=== PATIENT | male | born 1955 | race Caucasian/White ===

== ENCOUNTER 2022-01-11 17:54 | Inpatient (IN) ==
[2022-01-11] MEDS ORDERED: MoRPHine SULFATE 4 MG/ML 1 ML CARP\\VIAL IV STA (18:40)
[2022-01-11] MEDS ORDERED: SODIUM CHLORIDE 0.9% 1000ML 1,000 ML IV ONE (18:40)
[2022-01-11] MEDS ORDERED: dexAMETHasone**PF** 10 MG/ML VIAL IV ONE (18:40)
[2022-01-11] MEDS ORDERED: MoRPHine SULFATE 4 MG/ML 1 ML CARP\\VIAL IV PRN ×2 (18:40→23:27)
[2022-01-11] MEDS ORDERED: ONDANSETRON INJ 2 MG/ML 2 ML VIAL IV STA (18:40)
--- NOTE | 2022-01-11 18:50 | Emergency Department Note ---
Impression & Plan Spinal stenosis, Sciatica of right side, DDD (degenerative disc disease), lumbar ED Provider Note NAME: ZENA FRANCOIS AGE: 66 SEX: M : 1955 ARRIVES VIA: Walk-In INFORMANT: Patient, ED PROVIDER(S): Dhruv Dai DO CHIEF COMPLAINT: Back pain HPI: The patient is a 66-year-old male who presented to the emergency department for an evaluation of back pain. The patient describes back pain which goes to his right leg. He had a similar episode 8 years ago. It was treated as sciatica. He did get an injection into the joint space and had good relief of his symptoms until approximately 1 or 2 years ago. He states the pain has been intermittent. He started getting worsening pain and he tried to contact the physician who gave him the injection in the past. He was unable to get an injection so he did come to the emergency department. He was treated approximately 1 week ago. He had an MRI which did show some abnormalities which could be worrisome for a surgical issue. He was plugged in with Dr. Cortez but has been unable to get an appointment. His significant other's been calling Dr. Cortez's office without any luck. The patient has had no nausea or vomiting. The patient's had no fever. He states his legs are "rubber". He denies having any saddle anesthesia. He said no constipation or urinary retention symptoms. He states symptoms are severe and worsened with any ambulation. He also has no ticed a rash over his abdominal wall. He states is itchy. He states he has had generalized weakness. ROS: See above HPI for pertinent positives & negatives. A total of 10 systems reviewed and were otherwise negative. PAST MEDICAL HISTORY: See Below PAST SURGICAL HISTORY: See Below FAMILY HISTORY: See Below SOCIAL HISTORY: See Below HOME MEDICATIONS: See Below ALLERGIES: See Below VITALS: See Below PHYSICAL EXAMINATION: GENERAL: Patient is awake alert in no acute distress patient is resting comfortably and showing no signs of anxiety EYES: The conjunctivae are clear. The pupils are round and reactive. EARS, NOSE, MOUTH AND THROAT: The nose is without any evidence of any deformity. Mucous membranes are moist. Tongue is midline. NECK: The neck is nontender and supple. RESPIRATORY: Normal respiratory effort is noted there is no evidence of wheezing rhonchi or rales CARDIOVASCULAR: Regular rate and rhythm noted there no murmurs rubs or gallops normal S1 normal S2. GASTROINTESTINAL: The abdomen is soft. Abdomen is nontender. BACK: There is no midline tenderness to palpation. Range of motion does appear limited secondary to pain but is intact. MUSCULOSKELETAL/EXTREMITIES: There is no evidence of gross deformity full range of motion is noted in the hips and shoulders. SKIN: There is a maculopapular rash noted over the abdominal wall. There was no pedal edema. NEUROLOGIC: Patient is awake alert and oriented x3. Achilles tendon reflexes were 1+ bilaterally and symmetric. Great toe raise was symmetric. Patellar tendon reflexes are absent bilaterally. MEDICAL DECISION MAKING: The patient is a 66-year-old male who presented to the emergency department for an evaluation of back pain. The patient had significant pain radiating to his right leg but recently started having pain down his left leg as well. He had an MRI a week ago which did show significant disease and was scheduled to follow-up with orthopedic spine. He was unable to set up an appointment with them so he presented to the emergency department this evening for further evaluation. I discussed patient's laboratory and previous radiographic studies with him. Because of his degree of pain I discussed his case with the on-call [facility] hospitalist. They have agreed to evaluate the patient in the emergency department for further management and disposition. Likely the patient will require orthopedic spine referral in the morning. He may require surgical intervention given his findings on recent MRI. The patient was treated with pain medication as well as Decadron in the emergency department. Triage Nursing notes reviewed. Prior medical records reviewed Vital Signs: reviewed and remarkable for no significant abnormalities Differential diagnosis: Musculoskeletal, disc herniation, fracture, metastatic disease, cord compr ession, discitis, sciatica, cauda equina, infection, aortic disease, renal colic, gastrointestinal, as well as other pathologies. ER treatment provided: See below Diagnostics interpreted by me: ECG: none Cardiac Monitoring: An order was placed for continuous cardiac monitoring. The monitor shows a rate of 90 bpm with sinus rhythm. Laboratory studies: As stated above and show below. Imaging studies: See below Consultation(s): I discussed this case with Dr Orozco Past Med/Surg History Medical History ASCVD (arteriosclerotic cardiovascular disease) CKD (chronic kidney disease) stage 3, GFR 30-59 ml/min COPD (chronic obstructive pulmonary disease) Diabetes Hyperlipidemia Hypertension Surgical History History of hernia surgery Hx laparoscopic cholecystectomy Family History Other Family history non-contributory Social History Smoking Status: Current every day smoker Tobacco Type: E-cigarettes / Vaping Cigarettes Per Day: vapes; Do You Dip or Chew Tobacco: No; Hx Alcohol Use: No Hx Substance Use: No Preferred Language: Czech Communication Ability: Effective Visual Impairment: No Limitations Food Handler Required: No Beliefs That Will Affect Care: None marital status: Current Living Situation: Spouse How many Children do You have: 1 Other Information That Helps Us Care for You: No Feels Safe at Home: Yes Safety Concerns: Feels Safe At This Time Assistive Devices: None Allergies Allergies Allergy/AdvReac Type Severity Reaction Status Date / Time amoxicillin [From Augmentin] Allergy Unknown pruritic Verified 01/11/22 18:43 rash clavulanic acid Allergy Unknown pruritic Verified 01/11/22 18:43 [From Augmentin] rash Home Meds Home Medications Medication Instructions Recorded Confirmed amlodipine 5 mg tablet (Norvasc) 5 mg PO QAM 07/14/18 01/11/22 atorvastatin 40 mg tablet 40 mg PO QAM 07/14/18 01/11/22 aspirin 81 mg tablet,delayed 81 mg PO QAM 01/03/22 01/11/22 release gabapentin 300 mg capsule 600 mg PO QAM 01/03/22 01/11/22 insulin human U-100 NPH-regulr See Rx Instructions .ROUTE .COMPLEX 01/03/22 01/11/22 70-30 mix 100 unit/mL subcutaneous susp (Novolin 70/30 U-100 Insulin) lisinopril 2.5 mg tablet 2.5 mg PO DAILY 01/03/22 01/11/22 metformin 1,000 mg tablet 1,000 mg PO BIDM 01/03/22 01/11/22 Previous Rx's Medication Instructions Recorded oxycodone-acetaminophen 5 mg-325 1 tab PO Q6H PRN #14 tab 01/04/22 mg tablet (Percocet) Results & Data (ED) Vital Signs Vital Signs - 24 hr 01/11/22 18:01 01/11/22 19:09 01/11/22 22:06 Temperature 36.6 C Temperature Source Temporal Artery Scan Pulse Rate 107 H Pulse Rate [Right] 98 H Respiratory Rate 18 18 Respiratory Effort / Characteristics Non-Labored Respiratory Depth Normal Respiratory Pattern Regular Blood Pressure 149/99 H Blood Pressure [Right Arm] 135/78 Blood Pressure Mean 115 Blood Pressure Mean [Right Arm] 97 Blood Pressure Position Sitting Pulse Oximetry 96 97 98 Oxygen Delivery Method Room Air Room Air Sepsis Recent Fever Within 48 Hours No Sepsis New/Unexplained Change in Mental Status No Sepsis Action Taken by Nursing No Action Required Home Medications Current Medication List: was personally reviewed by me Laboratory Data Attestation: I reviewed the patient's lab results. Result diagrams: 01/12/22 06:25 01/12/22 06:25 Lab Results 01/11/22 01/11/22 01/11/22 Range/Units 19:06 19:06 19:06 WBC 9.05 (4.8-10.8) K/uL RBC 4.19 L (4.7-6.1) M/uL Hgb 12.9 L (14.0-18.0) g/dL Hct 37.9 L (42-52) % MCV 90.5 (80-100) fL MCH 30.8 (25-34) pg MCHC 34.0 (32-36) g/dL RDW Std Deviation 45.8 (36.4-46.3) fL RDW Coeff of Erica 13.9 (11.5-14.5) % Plt Count 241 (130-400) K/uL MPV 9.3 (7.4-10.4) fL Immature Gran % (Auto) 0.4 % Neut % (Auto) 73.2 % Lymph % (Auto) 18.7 % [place] % (Auto) 6.9 % Eos % (Auto) 0.6 % Baso % (Auto) 0.2 % Neut # (Auto) 6.63 H (1.4-6.5) K/uL Lymph # (Auto) 1.69 (1.2-3.4) K/uL [place] # (Auto) 0.62 H (0.11-0.59) K/uL Eos # (Auto) 0.05 (0-0.5) K/uL Baso # (Auto) 0.02 (0-0.2) K/uL Immature Gran # (Auto) 0.04 H (0.00-0.02) K/uL Sodium 138 (136-145) mmol/L Potassium 4.4 (3.5-5.1) mmol/L Chloride 105 (98-107) mmol/L Carbon Dioxide 26 (21-32) mmol/L Anion Gap 7 (3-11) BUN 32 H (6-23) mg/dl Creatinine 1.00 (0.6-1.4) mg/dl Est Cr Clr Drug Dosing Not Reportable Est GFR ( Amer) 89.2 ml/min Est GFR (Non-Af Amer) 77.0 ml/min BUN/Creatinine Ratio 32.0 H (10-20) Glucose 86 (70-99(Fasting)) mg/dl Calcium 9.8 (8.5-10.1) mg/dl Total Bilirubin 0.6 (0.2-1.0) mg/dl AST 201 H (13-39) U/L ALT 259 H (7-52) U/L Alkaline Phosphatase 68 (34-104) U/L Total Protein 6.9 (6.0-8.3) gm/dl Albumin 4.0 (3.4-5.0) gm/dl Globulin 2.9 (2.5-4.0) gm/dl Albumin/Globulin Ratio 1.4 (0.9-2) Lipase 34 (11-82) U/L Urine Color Urine Appearance (Clear) Urine pH (4.5-7.5) Ur Specific [place] (1.000-1.030) Urine Protein (Negative) Urine Glucose (UA) (Negative) Urine Ketones (Negative) Urine Blood (Negative) Urine Nitrite (Negative) Urine Bilirubin (Negative) Urine Urobilinogen (Negative) Ur Leukocyte Esterase (Negative) Urine WBC (Auto) (0-5) /hpf Urine RBC (Auto) (0-4) /hpf U Hyaline Cast (Auto) (0-5) /lpf U Epithel Cells (Auto) (0-5) /lpf Urine Bacteria (Auto) (Negative) SARS-CoV-2, RNA, NAAT NEGATIVE (NEGATIVE) 01/11/22 Range/Units 22:02 WBC (4.8-10.8) K/uL RBC (4.7-6.1) M/uL Hgb (14.0-18.0) g/dL Hct (42-52) % MCV (80-100) fL MCH (25-34) pg MCHC (32-36) g/dL RDW Std Deviation (36.4-46.3) fL RDW Coeff of Erica (11.5-14.5) % Plt Count (130-400) K/uL MPV (7.4-10.4) fL Immature Gran % (Auto) % Neut % (Auto) % Lymph % (Auto) % [place] % (Auto) % Eos % (Auto) % Baso % (Auto) % Neut # (Auto) (1.4-6.5) K/uL Lymph # (Auto) (1.2-3.4) K/uL [place] # (Auto) (0.11-0.59) K/uL Eos # (Auto) (0-0.5) K/uL Baso # (Auto) (0-0.2) K/uL Immature Gran # (Auto) (0.00-0.02) K/uL Sodium (136-145) mmol/L Potassium (3.5-5.1) mmol/L Chloride (98-107) mmol/L Carbon Dioxide (21-32) mmol/L Anion Gap (3-11) BUN (6-23) mg/dl Creatinine (0.6-1.4) mg/dl Est Cr Clr Drug Dosing Est GFR ( Amer) ml/min Est GFR (Non-Af Amer) ml/min BUN/Creatinine Ratio (10-20) Glucose (70-99(Fasting)) mg/dl Calcium (8.5-10.1) mg/dl Total Bilirubin (0.2-1.0) mg/dl AST (13-39) U/L ALT (7-52) U/L Alkaline Phosphatase (34-104) U/L Total Protein (6.0-8.3) gm/dl Albumin (3.4-5.0) gm/dl Globulin (2.5-4.0) gm/dl Albumin/Globulin Ratio (0.9-2) Lipase (11-82) U/L Urine Color Yellow Urine Appearance Clear (Clear) Urine pH 5.5 (4.5-7.5) Ur Specific [place] 1.016 (1.000-1.030) Urine Protein 1+ H (Negative) Urine Glucose (UA) Negative (Negative) Urine Ketones Negative (Negative) Urine Blood 3+ H (Negative) Urine Nitrite Negative (Negative) Urine Bilirubin Negative (Negative) Urine Urobilinogen Negative (Negative) Ur Leukocyte Esterase Negative (Negative) Urine WBC (Auto) 1-5 (0-5) /hpf Urine RBC (Auto) 0-4 (0-4) /hpf U Hyaline Cast (Auto) 1-5 (0-5) /lpf U Epithel Cells (Auto) 5-10 H (0-5) /lpf Urine Bacteria (Auto) Negative (Negative) SARS-CoV-2, RNA, NAAT (NEGATIVE) Administered Medications Amlodipine Besylate (Amlodipine Besylate 5 Mg Tab) 5 mg PO [facility] Stop: 02/11/22 08:59 Last Admin: 01/12/22 07:47 Dose: 5 mg Documented by: [id number] Aspirin (Aspirin 81 Mg Ectab) 81 mg PO [facility] Stop: 02/11/22 08:59 Last Admin: 01/12/22 07:46 Dose: Not Given Documented by: [id number] Atorvastatin Calcium (Atorvastatin 40 Mg Tab) 40 mg PO [facility] Stop: 02/11/22 08:59 Last Admin: 01/12/22 07:48 Dose: 40 mg Documented by: [id number] Gabapentin (Gabapentin 300 Mg Cap) 600 mg PO [facility] Stop: 02/11/22 08:59 Last Admin: 01/12/22 07:49 Dose: Not Given Documented by: [id number] Insulin Aspart (Insulin Aspart Per Unit) 0 units SC ACHS [facility] Stop: 02/11/22 11:29 Last Admin: 01/12/22 13:10 Dose: 4 units Documented by: [id number] Cosigned by: [id number] Insulin Glargine (Insulin Glargine Solostar 100 Units/Ml 3 Ml Pen) 5 units SC BID [facility] Stop: 02/10/22 23:26 Last Admin: 01/12/22 07:48 Dose: 5 units Documented by: [id number] Cosigned by: [id number] Admin: 01/12/22 01:07 Dose: 5 units Documented by: [id number] Cosigned by: [id number] Lisinopril (Lisinopril 2.5 Mg Tab) 2.5 mg PO DAILY [facility] Stop: 02/11/22 08:59 Last Admin: 01/12/22 07:48 Dose: 2.5 mg Documented by: [id number] Discontinued Medications Dexamethasone Sodium Phosphate (DexamethasonePf 10 Mg/Ml Vial) 10 mg IV NOW ONE Stop: 01/11/22 18:41 Last Admin: 01/11/22 19:08 Dose: 10 mg Documented by: [id number] Diphenhydramine HCl (Diphenhydramine 50 Mg/Ml Vial) 25 mg IV NOW STA Stop: 01/11/22 22:20 Last Admin: 01/11/22 22:38 Dose: 25 mg Documented by: [id number] Sodium Chloride (Nss 1000ml) 1,000 mls @ 999 mls/hr IV .Q1H1M ONE Stop: 01/11/22 19:40 Last Infusion: 01/11/22 20:10 Dose: 0 mls/hr Documented by: [id number] Admin: 01/11/22 19:09 Dose: 999 mls/hr Documented by: [id number] Famotidine (Pepcid 20mg Iv Push) 20 mg in 5 mls @ 2.5 mls/min IV NOW STA Stop: 01/11/22 22:20 Last Admin: 01/11/22 22:38 Dose: 2.5 mls/min Documented by: [id number] Sodium Chloride (1/2 Nss) 1,000 mls @ 100 mls/hr IV .Q10H [facility] Stop: 01/12/22 09:26 Last Infusion: 01/12/22 11:01 Dose: 0 mls/hr Documented by: [id number] Admin: 01/12/22 00:56 Dose: 100 mls/hr Documented by: [id number] Insulin Aspart (Insulin Aspart Per Unit) 5 units SC NOW STA Stop: 01/12/22 02:58 Last Admin: 01/12/22 03:53 Dose: 5 units Documented by: [id number] Cosigned by: [id number] Insulin Aspart (Insulin Aspart Per Unit) 0 units SC Q6 [facility] Stop: 02/11/22 05:59 Last Admin: 01/12/22 06:18 Dose: 3 units Documented by: [id number] Cosigned by: [id number] Morphine Sulfate (Morphine Sulfate 4 Mg/Ml 1 Ml Carp\\Vial) 4 mg IV NOW STA Stop: 01/11/22 18:41 Last Admin: 01/11/22 19:09 Dose: 4 mg Documented by: [id number] Ondansetron HCl (Ondansetron Inj 2 Mg/Ml 2 Ml Vial) 4 mg IV NOW STA Stop: 01/11/22 18:41 Last Admin: 01/11/22 19:09 Dose: 4 mg Documented by: [id number] Discharge Plan Visit Data Chief Complaint: Back Injury/Pain Stated Complaint: BACK PAIN, RASH EVERYWHERE ED Provider: Dhruv Dai Discharge Problem: Spinal stenosis, Sciatica of right side, DDD (degenerative disc disease), lumbar Patient Disposition: Admitted As Inpatient Discharge Instructions Interventions: ED Discharge Assessment Last Done: 01/11/22 23:07 Discharge Problem: Spinal stenosis Qualifiers: Spinal region: unspecified Qualified Code(s): M48.00 - Spinal stenosis, site unspecified
[2022-01-11 19:19] LABS: Hematocrit (blood only) 37.9 % (42-52); Hemoglobin 12.9 g/dL (14.0-18.0); Mean Corpuscular Hemoglobin 30.8 pg (25-34); Mean Corpuscular Volume 90.5 fL (80-100); Mean Platelet Volume 9.3 fL (7.4-10.4); Platelet Count 241 K/uL (130-400); RDW Coefficient of Variation 13.9 % (11.5-14.5); RDW Standard Deviation 45.8 fL (36.4-46.3); Red Blood Count 4.19 M/uL (4.7-6.1); White Blood Count 9.05 K/uL (4.8-10.8)
[2022-01-11 19:39] LABS: Basophils # (auto) 0.02 K/uL (0-0.2); Basophils % (auto) 0.2 %; Eosinophils # (auto) 0.05 K/uL (0-0.5); Eosinophils % (auto) 0.6 %; Immature Granulocytes # (auto) 0.04 K/uL (0.00-0.02); Immature Granulocytes % (auto) 0.4 %; Lymphocytes # (auto) 1.69 K/uL (1.2-3.4); Lymphocytes % (auto) 18.7 %; Monocytes # (auto) 0.62 K/uL (0.11-0.59); Monocytes % (auto) 6.9 %; Neutrophils # (auto) 6.63 K/uL (1.4-6.5); Neutrophils % (auto) 73.2 %
[2022-01-11 20:09] LABS: Alanine Aminotransferase 259 U/L (7-52); Albumin Globulin Ratio 1.4 (0.9-2); Alkaline Phosphatase 68 U/L (34-104); Anion Gap 7 (3-11); Aspartate Aminotransferase 201 U/L (13-39); Bilirubin,Total 0.6 mg/dl (0.2-1.0); Blood Urea Nitrogen 32 mg/dl (6-23); Calcium 9.8 mg/dl (8.5-10.1); Carbon Dioxide 26 mmol/L (21-32); Chloride 105 mmol/L (98-107); Est GFR (African American) 89.2 ml/min; Globulin 2.9 gm/dl (2.5-4.0); Glucose 86 mg/dl (70-99(Fasting)); Lipase 34 U/L (11-82); Potassium 4.4 mmol/L (3.5-5.1); Sodium 138 mmol/L (136-145); Total Protein 6.9 gm/dl (6.0-8.3)
[2022-01-11] MEDS ORDERED: diphenhydrAMINE 50 MG/ML VIAL IV STA (22:19)
[2022-01-11] MEDS ORDERED: FAMOTIDINE 20MG IV PUSH 20 MG/5 ML SYR IV STA (22:19)
[2022-01-11 22:25] LABS: Appearance Urine Clear (Clear); Bacteria Urine Automated Negative (Negative); Bilirubin Urine Negative (Negative); Blood Urine 3+ (Negative); Color Urine Yellow; Glucose Urine UA Negative (Negative); Ketones Urine Negative (Negative); Leukocyte Esterase Urine Negative (Negative); Nitrite Urine Negative (Negative); Protein Urine 1+ (Negative); RBC Urine Automated 0-4 /hpf (0-4); Specific Gravity Urine 1.016 (1.000-1.030); Urobilinogen Urine Negative (Negative); pH Urine 5.5 (4.5-7.5)
[2022-01-11] MEDS ORDERED: SODIUM CHLORIDE 0.45 % 1,000 ML IV SCH (23:27)
[2022-01-11] MEDS ORDERED: ACETAMINOPHEN 325 MG TAB PO PRN (23:27)
[2022-01-11] MEDS ORDERED: ONDANSETRON INJ 2 MG/ML 2 ML VIAL IV PRN (23:27)
[2022-01-11] MEDS ORDERED: POLYETHYLENE (MIRALAX) 17 GM PACK PO PRN (23:27)
--- NOTE | 2022-01-11 23:57 | History and Physical Report ---
DATE OF ADMISSION: 01/11/2022. CHIEF COMPLAINT: Severe back pain. HISTORY OF PRESENT ILLNESS: A 66-year-old male with past medical history significant for type 2 diabetes, hyperlipidemia, pancreatic divisum, chronic rhinitis, abdominal aortic aneurysm, hypertension, diverticulosis of colon, chronic kidney disease stage III, noise induced hearing loss, tobacco use disorder, who presents with severe back pain. Back pain is going on for a long time, but lately it has become worse. He had a steroid shot with pain management on 12/27/2021, but it is not helping. Pain radiating to right leg. In the ER, he had a lumbar spine MRI on 01/04/2022, which showed moderate central canal stenosis with moderate bilateral neural foraminal narrowing at L4- L5 and right foraminal and right lateral disk osteophyte complex at L5-S1 with abutment and displacement of the right extraforaminal L5 nerve root and also infrarenal abdominal aortic aneurysm measuring 4.3 cm. The patient's pain is getting worse and he is saying he is not able to ambulate, he has to crawl to climb steps, that is why he came back here.Was trying to reach back surgery, but could not get an appointment yet. Denies any headache, no dizziness, no blurred visions, no earache, no runny nose, no sore throat, no cough, no fever, no chills, no chest pain, no shortness of breath. No nausea, no vomiting, no abdominal pain. Normal bowel and bladder movements. Currently, resting comfortably, hemodynamically stable.Today he also developed diffuse macular rash involving the trunk and lower extremities, somewhat mild in the lower extremities, itching. He thinks he had some bug bites, but not sure which and he denies tick bites. He says no recent new medications. He states he recently took Percocet, but only took few doses, but the rash started today. ALLERGIES: AUGMENTIN. PAST MEDICAL HISTORY: As mentioned above. PAST SURGICAL HISTORY: Colonoscopy, EGD with endoscopic ultrasound, injection of the lumbar spine, injection of the eye drug, laparoscopic cholecystectomy. MEDICATIONS: The patient is on amlodipine 5 mg p.o. a.m., aspirin 81 mg p.o. a.m., atorvastatin 40 mg p.o. a.m., gabapentin 600 mg p.o. a.m., Novolin 70/30 18 units before breakfast and 15 units before supper, lisinopril 2.5 mg p.o. daily, metformin 1000 mg p.o. b.i.d., Percocet 1 tablet p.o. q. 4-6 hours p.r.n. FAMILY HISTORY: Significant for father has bone cancer, diabetes, heart disorder, hypertension, stroke; mother has liver cancer, diabetes, heart disorder, hypertension; sister has thyroid disorder. SOCIAL HISTORY: , former smoker, who quit in 2012, smoked 1 pack a day for 32 years. No alcohol use. No drug use. REVIEW OF SYSTEMS: As per HPI. Rest of the review of systems is negative. PHYSICAL EXAMINATION: GENERAL: The patient is of moderate build, not in acute distress. VITAL SIGNS: Temperature 36.6, pulse 98, respiratory rate 18, blood pressure 135/78, oxygen 98% on room air. HEENT: Pupils equal, round, and reactive to light. Oral mucosa moist. NECK: No JVD, no neck masses. CARDIOVASCULAR: S1 and S2 heard. Regular rate and rhythm. No murmur, no gallop. RESPIRATORY SYSTEM: Normal AP diameter. No accessory muscle use. No wheezing, no crackles. ABDOMEN: Soft. Bowel sounds are present, nontender, no distention. CENTRAL NERVOUS SYSTEM: Cranial nerves II-XII grossly intact, nonfocal. EXTREMITIES: No edema, no erythema. MUSCULOSKELETAL: Bilateral straight leg test negative. SKIN: Diffuse macular rash in trunk and lower extremity, worse in the trunk region. LABORATORY DATA: WBC 9, hemoglobin 12.9, hematocrit 37.9, platelets 241. Sodium 138, potassium 4.4, chloride 105, bicarbonate 26, BUN 32, creatinine 1, serum glucose 86, calcium 9.8, total bilirubin 0.6, AST 201, ALT 259, alkaline phosphatase 68, lipase 34. SARS-CoV-2 RNA negative. ASSESSMENT AND PLAN: This is a 66-year-old male who presents with ongoing severe back pain and ambulatory dysfunction. 1. Severe back pain and ambulatory dysfunction: MRI scan as mentioned in the HPI was done on 01/04/2022. Pain control with Dilaudid p.r.n., IV fluids, and consult orthopedics in the a.m. 2. Diffuse macular rash: Etiology unclear. The patient already received Decadron in the ER. Will give IV Benadryl and IV Pepcid and monitor. May be we need to continue the Benadryl and monitor.If not improving derm consult. Willl check lyme screen. 3. History of diabetes: Received Decadron.. Will monitor the blood sugars, follow HbA1c levels. Holding the Novolin 70/30. Placing on Lantus 5 units b.i.d., insulin sliding scale. Currently n.p.o. Also holding metformin. 4. Hypertension: Continue his lisinopril and amlodipine. Will monitor the blood pressure. 5. History of hyperlipidemia: Continue statin. 6. Abdominal aortic aneurysm 4.3 cm: Needs followup. 7. Chronic kidney disease stage III: Presently with creatinine of 1. Will follow the labs. 8. Elevated AST, transaminitis: Will follow the repeat labs. 9. Deep venous thrombosis prophylaxis: Sequential compression devices for now. DISPOSITION: Admit to medical floor. Expect to discharge home and follow with family doctor. Job ID: [id number] MARIYA
[2022-01-12] MEDS: INSULIN GLARGINE SOLOSTAR 100 UNITS/ML 3 ML PEN SC SCH ×3 (01:07→21:02)
[2022-01-12] MEDS ORDERED: INSULIN ASPART PER UNIT SC STA (02:57)
[2022-01-12] MEDS ORDERED: Nursing to Pharmacy Communication SCH ×2 (04:30→11:15)
[2022-01-12] MEDS ORDERED: INSULIN ASPART PER UNIT SC SCH ×2 (06:00→07:30)
[2022-01-12 06:55] LABS: Basophils # (auto) 0.02 K/uL (0-0.2); Basophils % (auto) 0.2 %; Eosinophils # (auto) 0.01 K/uL (0-0.5); Eosinophils % (auto) 0.1 %; Hematocrit (blood only) 37.8 % (42-52); Hemoglobin 12.8 g/dL (14.0-18.0); Immature Granulocytes # (auto) 0.04 K/uL (0.00-0.02); Immature Granulocytes % (auto) 0.4 %; Lymphocytes # (auto) 1.28 K/uL (1.2-3.4); Mean Corpuscular Hemoglobin 29.8 pg (25-34); Mean Corpuscular Hgb Conc 33.9 g/dL (32-36); Mean Corpuscular Volume 88.1 fL (80-100); Mean Platelet Volume 9.2 fL (7.4-10.4); Monocytes # (auto) 0.48 K/uL (0.11-0.59); Monocytes % (auto) 4.9 %; Neutrophils # (auto) 8.01 K/uL (1.4-6.5); Neutrophils % (auto) 81.4 %; Platelet Count 248 K/uL (130-400); RDW Coefficient of Variation 13.8 % (11.5-14.5); RDW Standard Deviation 44.7 fL (36.4-46.3); Red Blood Count 4.29 M/uL (4.7-6.1); White Blood Count 9.84 K/uL (4.8-10.8)
[2022-01-12 07:23] LABS: Albumin Level 3.8 gm/dl (3.4-5.0); BUN Creatinine Ratio 32.6 (10-20); Bilirubin,Total 0.6 mg/dl (0.2-1.0); Calcium 9.2 mg/dl (8.5-10.1); Creatinine Clr Calc Pharmacy 77.1 ml/min; Est GFR (African American) 94.9 ml/min; Est GFR (Non-African American) 81.9 ml/min; Magnesium 1.8 mg/dl (1.7-2.4); Potassium 4.4 mmol/L (3.5-5.1); Total Protein 6.6 gm/dl (6.0-8.3)
[2022-01-12 07:40] LABS: Estimated Average Glucose 171 mg/dl; Hemoglobin A1C 7.6 % (4.5-5.6)
[2022-01-12] MEDS: ASPIRIN 81 MG ECTAB PO SCH (07:46)
[2022-01-12] MEDS: amLODIPine BESYLATE 5 MG TAB PO SCH (07:47)
[2022-01-12] MEDS: ATORVASTATIN 40 MG TAB PO SCH (07:48)
[2022-01-12] MEDS: lisinopril 2.5 MG TAB PO SCH (07:48)
[2022-01-12] MEDS: GABAPENTIN 300 MG CAP PO SCH (07:49)
[2022-01-12 07:50] LABS: Lyme Ab IgG w/WB Rflx Positive (Negative)
[2022-01-12 07:51] LABS: Lyme Ab IgM w/WB Rflx Equivocal (Negative)
--- NOTE | 2022-01-12 09:53 | XRay Report ---
STANDING LATERAL RADIOGRAPHS OF THE LUMBAR SPINE IN FLEXION AND EXTENSION CLINICAL HISTORY: back pain , standing films COMPARISON STUDY: Lumbar spine CT January 03, 2022. Lumbar spine MRI January 04, 2022. FINDINGS: Infrarenal abdominal aortic aneurysm is better depicted on CT of January 03, 2022. Alignment of the lumbar spine is anatomic during flexion and extension. Vertebral body heights are maintained. Th ere is no fracture. There is no suspicious osseous lesion. There is moderate displacement with osteop hytosis at L4-L5 and L5-S1. Moderate multilevel facet arthrosis is present. IMPRESSION: 1. No evidence for lumbar spine instability during flexion or extension. 2. No lumbar spine fracture. 3. Moderate disc space narrowing and osteophytosis at L4-L5 and L5-S1. Moderate multilevel facet arth rosis. 4. Infrarenal abdominal aortic aneurysm, better depicted on CT of January 03, 2022. ACT 112: Negative or not required by law. Electronically signed by: Rodrigo Covarrubias M.D. 01/12/2022 9:51 AM
--- NOTE | 2022-01-12 10:49 | Orthopedic Consultation ---
Date of Consultation January 12, 2022 Assessment & Plan (1) Sciatica of right side: Assessment spinal stenosis with radiculopathy. Plan at this time MRI does demonstrate evidence of spinal stenosis L4-L5 with broad-based disc protrusion. L5-S1 has for neuroforaminal disease on the right. X-rays do not demonstrate any gross instability. At this point would continue to manage him medically. Seems to have inflammatory spots to the epidural injection that exacerbated his symptoms. Perhaps a course of orals would be reasonable. A consultation with pain management may be warranted. Again at this time I do not see a need for any urgent surgical intervention. History of Present Illness Reason for Consultation: Back and right leg pain Attending Physician: Michael Montgomery MD History of Present Illness This is a 58-year-old male who has a history of back pain many years ago that was remedied with a course of injections. The symptoms have returned he had some back and right leg pain underwent an epidural injection approximately 2 weeks ago. Unfortunately seem to have a paradoxical effect increasing his sciatic and back symptoms. Describes pain at lumbosacral junction rating in the right buttock posterior thigh into the foot. Is exacerbated with activity. He is comfortable at rest. Left lower extremities asymptomatic. He denies any gross strength deficits. Allergies Allergy/AdvReac Type Severity Reaction Status Date / Time amoxicillin [From Augmentin] Allergy Unknown pruritic Verified 01/11/22 18:43 rash clavulanic acid Allergy Unknown pruritic Verified 01/11/22 18:43 [From Augmentin] rash Home Medications Medication Instructions Recorded Confirmed Type amlodipine 5 mg tablet (Norvasc) 5 mg PO QAM 07/14/18 01/11/22 History atorvastatin 40 mg tablet 40 mg PO QAM 07/14/18 01/11/22 History aspirin 81 mg tablet,delayed 81 mg PO QAM 01/03/22 01/11/22 History release gabapentin 300 mg capsule 600 mg PO QAM 01/03/22 01/11/22 History insulin human U-100 NPH-regulr See Rx Instructions .ROUTE .COMPLEX 01/03/22 01/11/22 History 70-30 mix 100 unit/mL subcutaneous susp (Novolin 70/30 U-100 Insulin) lisinopril 2.5 mg tablet 2.5 mg PO DAILY 01/03/22 01/11/22 History metformin 1,000 mg tablet 1,000 mg PO BIDM 01/03/22 01/11/22 History oxycodone-acetaminophen 5 mg-325 1 tab PO Q6H PRN #14 tab 01/04/22 01/11/22 Rx mg tablet (Percocet) Patient History Medical History ASCVD (arteriosclerotic cardiovascular disease) CKD (chronic kidney disease) stage 3, GFR 30-59 ml/min COPD (chronic obstructive pulmonary disease) Diabetes Hyperlipidemia Hypertension Surgical History History of hernia surgery Hx laparoscopic cholecystectomy Family History Other Family history non-contributory Social History Smoking Status: Current every day smoker Tobacco Type: E-cigarettes / Vaping Cigarettes Per Day: vapes; Do You Dip or Chew Tobacco: No; Hx Alcohol Use: No Hx Substance Use: No Preferred Language: Lao Communication Ability: Effective Visual Impairment: No Limitations Residential Housekeeper Required: No Beliefs That Will Affect Care: None Current Living Situation: Spouse Other Information That Helps Us Care for You: No Feels Safe at Home: Yes Safety Concerns: Feels Safe At This Time Assistive Devices: None Physical Exam Physical Exam: On exam he is alert and cooperative. He has reasonable strength detailed testing. Sensory symmetric and intact. No gross tension signs. Results & Data ([facility]) Vital Signs (Past 12 Hours) Vital Signs Temp Pulse Resp BP Pulse Ox 01/12/22 07:31 36.8 C 83 16 117/73 96 01/11/22 23:30 36.9 C 97 H 18 158/98 H 96
[2022-01-12] MEDS ORDERED: DOXYCYCLINE HYCLATE 100 MG CAP PO ONE (13:00)
[2022-01-12] MEDS: INSULIN ASPART PER UNIT SC SCH ×3 (13:10→21:02)
[2022-01-12] MEDS: DOXYCYCLINE HYCLATE 100 MG CAP PO SCH (20:31)
--- NOTE | 2022-01-12 23:59 | Hospitalist Progress Note ---
Date of Service January 12, 2022 Assessment & Plan (1) Back pain: Plan: Ambulatory dysfunction Present on admission with worsening back pain Xray spine flexion showed moderate disc space narrowing and osteophytosis at L4- L5 and L5-S1. Moderate multilevel facet arthrosis. MRI showed MRI on 01/04/2022, which showed moderate central canal stenosis with moderate bilateral neural foraminal narrowing at L4-L5 and right foraminal and right lateral disk osteophyte complex at L5-S1 with abutment and displacement of the right extraforaminal L5 nerve root Continue pain control Ortho on board recommended conservative management- Need for any urgent surgical intervention. Clinically stable Positive Lyme titer Lyme positive for IgG and IgM equivocal A Western blot pending Continue Doxycycline for now Elevated liver enzyme AST 143 and ALT 247 today Liver ultrasound showed no biliary ductal dilatation status post cholecystectomy. Possible mild hepatic steatosis. Avoid hepatotoxic agent Continue monitor LFT DM type 2 Most recent Hba1c 7.6 ( on 02/11) Continue Lantus and insulin sliding scale with NovoLog Continue monitor BP Hypertension: Continue his lisinopril and amlodipine. Continue monitor BP Abdominal aortic aneurysm 4.3 cm: Will need to continue follow-up outpatient Deep venous thrombosis prophylaxis: SCD CODE STATUS full code Admission and Anticipated Discharge Date Admission Date: January 11, 2022 Subjective Pt was seen and examined for follow of back pain Sitting at the edge of the bed with no acute distress Pt said that his pain control Denies any chest pain, palpitation, dizziness and SOB Review of Systems Review of Systems: All systems reviewed & are unremarkable except as noted in Subjective Physical Exam Physical Exam: General- No acute distress Head- atraumatic Eyes- PERRL, EOMI, ENT- oropharynx clear Neck- supple, no JVD Lungs- clear to auscultation Heart- regular rhythm; no murmur Abdomen- normal bowel sounds, soft, nontender Extremities- no calf tenderness Neuro- alert, oriented x 3; PERRL, EOMI; no facial palsy; no dysarthria Skin- warm & dry Results & Data Results & Data ([facility]) Vital Signs (Past 12 Hours) Vital Signs Temp Pulse Resp BP Pulse Ox 01/12/22 15:43 36.6 C 84 16 150/93 H 97
[2022-01-13] MEDS: ATORVASTATIN 40 MG TAB PO SCH (08:43)
[2022-01-13] MEDS: lisinopril 2.5 MG TAB PO SCH (08:43)
[2022-01-13] MEDS: DOXYCYCLINE HYCLATE 100 MG CAP PO SCH ×2 (08:43→21:01)
[2022-01-13] MEDS: ASPIRIN 81 MG ECTAB PO SCH (08:43)
[2022-01-13] MEDS: amLODIPine BESYLATE 5 MG TAB PO SCH (08:43)
[2022-01-13] MEDS: GABAPENTIN 300 MG CAP PO SCH (08:44)
[2022-01-13] MEDS: INSULIN ASPART PER UNIT SC SCH ×4 (08:46→21:01)
[2022-01-13] MEDS: INSULIN GLARGINE SOLOSTAR 100 UNITS/ML 3 ML PEN SC SCH ×2 (08:49→21:01)
[2022-01-13 09:44] LABS: Albumin Globulin Ratio 1.3 (0.9-2); Albumin Level 4.3 gm/dl (3.4-5.0); BUN Creatinine Ratio 31.9 (10-20); Bilirubin,Total 0.7 mg/dl (0.2-1.0); Calcium 9.7 mg/dl (8.5-10.1); Creatinine Clr Calc Pharmacy 61.5 ml/min; Est GFR (African American) 72.3 ml/min; Est GFR (Non-African American) 62.4 ml/min; Globulin 3.2 gm/dl (2.5-4.0); Total Protein 7.5 gm/dl (6.0-8.3)
--- NOTE | 2022-01-13 13:50 | Ultrasound Report ---
US liver CLINICAL HISTORY: transaminitis COMPARISON STUDY: CTA of the abdomen and pelvis January 03, 2022. MRCP July 14, 2018. FINDINGS: There is no biliary ductal dilatation status post cholecystectomy. Common bile duct measure s 5 mm in caliber. There is slight increased hepatic echogenicity. No hepatic lesions are identified. Pancreatic body is normal. The pancreatic head and tail are obscured. There is no right hydronephros is. IMPRESSION: 1. No biliary ductal dilatation status post cholecystectomy. 2. Possible mild hepatic steatosis. ACT 112: Negative or not required by law. Electronically signed by: Rodrigo Covarrubias M.D. 01/13/2022 1:48 PM
--- NOTE | 2022-01-13 23:46 | Hospitalist Progress Note ---
Date of Service January 13, 2022 Assessment & Plan (1) Back pain: Plan: Ambulatory dysfunction Present on admission with worsening back pain Xray spine flexion showed moderate disc space narrowing and osteophytosis at L4- L5 and L5-S1. Moderate multilevel facet arthrosis. MRI showed MRI on 01/04/2022, which showed moderate central canal stenosis with moderate bilateral neural foraminal narrowing at L4-L5 and right foraminal and right lateral disk osteophyte complex at L5-S1 with abutment and displacement of the right extraforaminal L5 nerve root Continue pain control Ortho on board recommended conservative management- Need for any urgent surgical intervention. Clinically stable Positive Lyme titer Lyme positive for IgG and IgM equivocal A Western blot pending Continue Doxycycline for now Elevated liver enzyme AST 143 and ALT 247 today Liver ultrasound showed no biliary ductal dilatation status post cholecystectomy. Possible mild hepatic steatosis. Avoid hepatotoxic agent Continue monitor LFT DM type 2 Most recent Hba1c 7.6 ( on 02/11) Continue Lantus and insulin sliding scale with NovoLog Continue monitor BP Hypertension: Continue his lisinopril and amlodipine. Continue monitor BP Abdominal aortic aneurysm 4.3 cm: Will need to continue follow-up outpatient Deep venous thrombosis prophylaxis: SCD CODE STATUS full code Admission and Anticipated Discharge Date Admission Date: January 11, 2022 Subjective Pt was seen and examined for follow of back pain Lying in bed with no acute distress with at bedside Patient said his pain is much better Denies any chest pain, palpitation, dizziness and SOB Review of Systems Review of Systems: All systems reviewed & are unremarkable except as noted in Subjective Physical Exam Physical Exam: General- No acute distress Head- atraumatic Eyes- PERRL, EOMI, ENT- oropharynx clear Neck- supple, no JVD Lungs- clear to auscultation Heart- regular rhythm; no murmur Abdomen- normal bowel sounds, soft, nontender Extremities- no calf tenderness Neuro- alert, oriented x 3; PERRL, EOMI; no facial palsy; no dysarthria Skin- warm & dry Results & Data Results & Data ([facility]) Vital Signs (Past 12 Hours) Vital Signs Temp Pulse Resp BP Pulse Ox 01/13/22 15:03 37.0 C 69 16 120/78 97
[2022-01-13 23:57] LABS: HBSAG NON-REACTIVE (NON-REACTIVE); Hepatitis A Antibody IgM NON-REACTIVE (NON-REACTIVE); Hepatitis B Core Antibody IgM NON-REACTIVE (NON-REACTIVE)
[2022-01-14] MEDS: ATORVASTATIN 40 MG TAB PO SCH (08:35)
[2022-01-14] MEDS: amLODIPine BESYLATE 5 MG TAB PO SCH (08:35)
[2022-01-14] MEDS: DOXYCYCLINE HYCLATE 100 MG CAP PO SCH (08:35)
[2022-01-14] MEDS: lisinopril 2.5 MG TAB PO SCH (08:35)
[2022-01-14] MEDS: GABAPENTIN 300 MG CAP PO SCH (08:35)
[2022-01-14] MEDS: ASPIRIN 81 MG ECTAB PO SCH (08:35)
[2022-01-14] MEDS: INSULIN GLARGINE SOLOSTAR 100 UNITS/ML 3 ML PEN SC SCH (08:37)
[2022-01-14] MEDS: INSULIN ASPART PER UNIT SC SCH ×2 (08:38→13:09)
[2022-01-14 08:54] LABS: Alanine Aminotransferase 229 U/L (7-52); Albumin Globulin Ratio 1.3 (0.9-2); Albumin Level 4.1 gm/dl (3.4-5.0); Alkaline Phosphatase 65 U/L (34-104); Anion Gap 7 (3-11); BUN Creatinine Ratio 37.7 (10-20); Bilirubin,Total 0.7 mg/dl (0.2-1.0); Blood Urea Nitrogen 43 mg/dl (6-23); Calcium 9.7 mg/dl (8.5-10.1); Carbon Dioxide 27 mmol/L (21-32); Chloride 100 mmol/L (98-107); Creatinine Clr Calc Pharmacy 64.2 ml/min; Est GFR (African American) 76.2 ml/min; Est GFR (Non-African American) 65.7 ml/min; Globulin 3.2 gm/dl (2.5-4.0); Glucose 226 mg/dl (70-99(Fasting)); Sodium 134 mmol/L (136-145); Total Protein 7.3 gm/dl (6.0-8.3)
[2022-01-14 10:15] LABS: Potassium 4.4 mmol/L (3.5-5.1)
[2022-01-17 00:22] LABS: 18KDIGG Band REACTIVE; 23KDIGG Band NON-REACTIVE; 23KDIGM Band NON-REACTIVE; 28KDIGG Band NON-REACTIVE; 30KDIGG Band NON-REACTIVE; 39KDIGG Band NON-REACTIVE; 39KDIGM Band NON-REACTIVE; 41KDIGG Band NON-REACTIVE; 41KDIGM Band REACTIVE; 45KDIGG Band NON-REACTIVE; 58KDIGG Band REACTIVE; 66KDIGG Band NON-REACTIVE; 93KDIGG Band REACTIVE; Lyme Antibodies, WB IgG NEGATIVE (NEGATIVE); Lyme Antibodies, WB IgM NEGATIVE (NEGATIVE)
== END 2022-01-14 16:43 | disposition home or self-care (01) | DRG 552 ==
LOC: ED 17:54 → 3W 22:24

== ENCOUNTER 2023-06-15 13:46 | Inpatient (IN) ==
[2023-06-15 15:09] LABS: Influenza A virus by PCR Negative (Neg); Influenza B virus by PCR Negative (Neg); RSV by PCR Negative (Neg); SARS CoV2 RNA(COVID-19) Ceph NEGATIVE (Negative)
[2023-06-15 15:19] LABS: Basophils # (auto) 0.02 K/uL (0.00-0.20); Basophils % (auto) 0.3 %; Eosinophils # (auto) 0.11 K/uL (0.00-0.50); Eosinophils % (auto) 1.7 %; Hematocrit (blood only) 43.5 % (42.0-52.0); Hemoglobin 14.4 g/dl (14.0-18.0); Immature Granulocytes # (auto) 0.01 K/uL (0.01-0.20); Immature Granulocytes % (auto) 0.2 %; Lymphocytes # (auto) 1.85 K/uL (1.20-3.40); Lymphocytes % (auto) 28.1 %; Mean Corpuscular Hemoglobin 29.6 pg (25.0-34.0); Mean Corpuscular Hgb Conc 33.1 g/dL (32.0-36.0); Mean Corpuscular Volume 89.3 fL (80.0-100.0); Monocytes # (auto) 1.01 K/uL (0.11-0.59); Monocytes % (auto) 15.3 %; Neutrophils # (auto) 3.59 K/uL (1.40-6.50); Neutrophils % (auto) 54.4 %; Platelet Count 209 K/uL (130-400); RDW Coefficient of Variation 13.2 % (11.5-14.5); RDW Standard Deviation 43.2 fL (36.4-46.3); Red Blood Count 4.87 M/uL (4.70-6.10); White Blood Count 6.59 K/ul (4.8-10.8)
[2023-06-15 15:33] LABS: Albumin Globulin Ratio 1.3 (0.9-2); Albumin Level 4.8 gm/dl (3.4-5.0); BUN Creatinine Ratio 16.9 (10-20); Bilirubin,Total 0.6 mg/dl (0.2-1.0); Creatinine Clr Calc Pharmacy 57.1 ml/min; Est GFR (African American) 60.7 ml/min; Est GFR (Non-African American) 52.3 ml/min; Globulin 3.8 gm/dl (2.5-4.0); Total Protein 8.6 gm/dl (6.0-8.3)
--- NOTE | 2023-06-15 16:01 | XRay Report ---
SINGLE VIEW CHEST CLINICAL HISTORY: Productive cough. Chest heaviness. FINDINGS: A PA chest radiograph is compared to study dated 07/25/2018. The cardiomediastinal silhouet te is unremarkable noting atherosclerotic calcification of the thoracic aorta. The lungs and pleural spaces are clear. No pneumothorax is seen. The skeletal structures are osteopenic. The bony thorax is grossly intact. Cholecystectomy clips are seen in the right upper quadrant. IMPRESSION: No active disease in the chest. ACT 112: Negative or not required by law. Electronically signed by: Fantasma Warren M.D. 06/15/2023 4:00 PM
[2023-06-15] MEDS ORDERED: ASPIRIN CHEW 324 MG PO STA (16:08)
--- NOTE | 2023-06-15 16:08 | Emergency Department Note ---
History of Present Illness General Chief complaint: Flu Like Symptoms Stated complaint: HEAVY CHEST, COUGHING UP FLEM, HEADACHES Time Seen by Provider: 06/15/23 15:50 History of Present Illness 68-year-old male presents emergency department with a 2-day history of cough with yellow sputum as well as chest heaviness that is nonradiating. Patient denies hemoptysis denies significant shortness of breath denies left arm pain denies jaw pain denies back pain. Patient states that he has initial chest heaviness. Patient does state that he vapes. Patient currently denies any chest heaviness. There were no other mitigating or alleviating factors. Home Medications Medication Instructions Recorded Confirmed Type amlodipine 5 mg tablet (Norvasc) 5 mg PO QAM 07/14/18 06/15/23 History aspirin 81 mg tablet,delayed 81 mg PO QAM 01/03/22 06/15/23 History release insulin human U-100 NPH-regulr 18 unit subcut BIDWMEAL 01/03/22 06/15/23 History 70-30 mix 100 unit/mL subcutaneous susp (Novolin 70/30 U-100 Insulin) lisinopril 2.5 mg tablet 2.5 mg PO QAM 01/03/22 06/15/23 History metformin 1,000 mg tablet 1,000 mg PO BIDM 01/03/22 06/15/23 History ferrous sulfate 325 mg (65 mg 325 mg PO QAM 06/15/23 06/15/23 History iron) tablet pioglitazone 15 mg tablet 15 mg PO QAM 06/15/23 06/15/23 History rosuvastatin 10 mg tablet 10 mg PO QAM 06/15/23 06/15/23 History Allergies Allergy/AdvReac Type Severity Reaction Status Date / Time amoxicillin [From Augmentin] Allergy Unknown pruritic Verified 06/15/23 16:34 rash clavulanic acid Allergy Unknown pruritic Verified 06/15/23 16:34 [From Augmentin] rash Past Med/Surg History Medical History Back pain DDD (degenerative disc disease), lumbar Sciatica of right side Spinal stenosis ASCVD (arteriosclerotic cardiovascular disease) COPD (chronic obstructive pulmonary disease) CKD (chronic kidney disease) stage 3, GFR 30-59 ml/min Hypertension Hyperlipidemia Diabetes Surgical History Hx laparoscopic cholecystectomy History of hernia surgery Family History (Updated 06/15/23 @ 18:08 by Aline Bernal PA-C) Mother Heart disease Social History Smoking Status: Former smoker Tobacco Type: E-cigarettes / Vaping Cigarettes Per Day: vapes; Do You Dip or Chew Tobacco: No; Hx Alcohol Use: No Hx Substance Use: No Preferred Language: Indonesian Communication Ability: Effective Visual Impairment: No Limitations Test Worker Required: No Beliefs That Will Affect Care: None marital status: Current Living Situation: Spouse How many Children do You have: 1 Feels Safe at Home: Yes Assistive Devices: None Physical Exam Vital Signs Vital Signs - 24 hr 06/15/23 14:04 06/15/23 16:13 06/15/23 18:00 Temperature 36.4 C L Temperature Source Temporal Artery Scan Pulse Rate 92 H Pulse Rate [Apical] 81 70 Pulse Rhythm [Apical] Regular Pulse Strength [Apical] Normal Respiratory Rate 18 18 30 H Respiratory Effort / Characteristics Non-Labored Non-Labored Non-Labored Respiratory Depth Normal Normal Normal Respiratory Pattern Regular Regular Blood Pressure 162/99 H Blood Pressure [Right Arm] 154/86 H 127/83 Blood Pressure Mean 120 Blood Pressure Mean [Right Arm] 108 97 Pulse Oximetry 96 96 96 Oxygen Delivery Method Room Air Room Air Room Air Sepsis Recent Fever Within 48 Hours No Sepsis New/Unexplained Change in Mental Status No Sepsis Action Taken by Nursing No Action Required GENERAL: Patient is awake alert in no acute distress patient is resting comfortably and showing no signs of anxiety EYES: The conjunctivae are clear. The pupils are round and reactive. EARS, NOSE, MOUTH AND THROAT: The nose is without any evidence of any deformity. Mucous membranes are moist. Tongue is midline. NECK: The neck is nontender and supple. RESPIRATORY: Normal respiratory effort is noted there is no evidence of wheezing rhonchi or rales CARDIOVASCULAR: Regular rate and rhythm noted there no murmurs rubs or gallops normal S1 normal S2. GASTROINTESTINAL: The abdomen is soft. Abdomen is nontender. PELVIS: The Pelvis is stable. No tenderness to palpation is noted. BACK: No midline tenderness or or step-off noted range of motion in flexion extension as well as rotation no signs of muscle spasm noted MUSCULOSKELETAL/EXTREMITIES: There is no evidence of gross deformity full range of motion is noted in the hips and shoulders. SKIN: There is no obvious evidence of any rash. There are no petechiae, pallor or cyanosis noted. NEUROLOGIC: Patient is awake alert and oriented x3 strength is symmetric Course Reevaluation(s) Reevaluation #1: Patient is resting in no distress on repeat examination. No current chest heaviness or shortness of breath Time: 17:41 Consultations Consultation #1: Case was discussed with the [facility]ist for admission Time: 17:41 Administered Medications Discontinued Medications Aspirin (Aspirin Chew 324 Mg) 324 mg PO NOW STA Stop: 06/15/23 16:09 Last Admin: 06/15/23 16:11 Dose: 324 mg Documented By: LULY Medical Decision Making Medical Records Attestation: I reviewed the patient's medical records. Home Medications Current Medication List: was personally reviewed by me Laboratory Data Attestation: I reviewed the patient's lab results. Lab results interpreted by me patient has an elevated troponin 06/15/23 14:55 06/15/23 14:55 Lab Results 06/15/23 06/15/23 06/15/23 Range/Units 14:06 14:55 16:22 WBC 6.59 (4.8-10.8) K/ul RBC 4.87 (4.70-6.10) M/uL Hgb 14.4 (14.0-18.0) g/dl Hct 43.5 (42.0-52.0) % MCV 89.3 (80.0-100.0) fL MCH 29.6 (25.0-34.0) pg MCHC 33.1 (32.0-36.0) g/dL RDW Std Deviation 43.2 (36.4-46.3) fL RDW Coeff of Erica 13.2 (11.5-14.5) % Plt Count 209 (130-400) K/uL MPV 10.0 (9.4-12.4) fL Immature Gran % (Auto) 0.2 % Neut % (Auto) 54.4 % Lymph % (Auto) 28.1 % [place] % (Auto) 15.3 % Eos % (Auto) 1.7 % Baso % (Auto) 0.3 % Neut # (Auto) 3.59 (1.40-6.50) K/uL Lymph # (Auto) 1.85 (1.20-3.40) K/uL [place] # (Auto) 1.01 H (0.11-0.59) K/uL Eos # (Auto) 0.11 (0.00-0.50) K/uL Baso # (Auto) 0.02 (0.00-0.20) K/uL Immature Gran # (Auto) 0.01 (0.01-0.20) K/uL Sodium 138 (136-145) mmol/L Potassium 4.0 (3.5-5.1) mmol/L Chloride 101 (98-107) mmol/L Carbon Dioxide 29 (21-32) mmol/L Anion Gap 8 (3-11) BUN 23 (6-23) mg/dl Creatinine 1.36 (0.6-1.4) mg/dl Est Cr Clr Drug Dosing 57.1 ml/min Est GFR ( Amer) 60.7 ml/min Est GFR (Non-Af Amer) 52.3 ml/min BUN/Creatinine Ratio 16.9 (10-20) Glucose 93 (70-99(Fasting)) mg/dl Lactate 1.5 (0.4-2.0) mmol/L Calcium 11.0 H (8.6-10.3) mg/dl Total Bilirubin 0.6 (0.2-1.0) mg/dl AST 38 (13-39) U/L ALT 33 (7-52) U/L Alkaline Phosphatase 74 (34-104) U/L Troponin I High Sens 56.0 H* 50.8 H* (0-20) pg/ml Total Protein 8.6 H (6.0-8.3) gm/dl Albumin 4.8 (3.4-5.0) gm/dl Globulin 3.8 (2.5-4.0) gm/dl Albumin/Globulin Ratio 1.3 (0.9-2) SARS-CoV-2 (PCR) NEGATIVE (Negative) Influenza Type A (PCR) Negative (Neg) Influenza Type B (PCR) Negative (Neg) RSV (RT-PCR) Negative (Neg) Imaging Data Attestation: I personally reviewed and interpreted this imaging study as follows: My Impression: Chest x-ray interpreted by me negative for infiltrate Radiologist's Impression: Chest X-Ray 06/15/23 14:07 SINGLE VIEW CHEST CLINICAL HISTORY: Productive cough. Chest heaviness. FINDINGS: A PA chest radiograph is compared to study dated 07/25/2018. The cardiomediastinal silhouette is unremarkable noting atherosclerotic calcification of the thoracic aorta. The lungs and pleural spaces are clear. No pneumothorax is seen. The skeletal structures are osteopenic. The bony thorax is grossly intact. Cholecystectomy clips are seen in the right upper quadrant. IMPRESSION: No active disease in the chest. ACT 112: Negative or not required by law. Electronically signed by: Fantasma Warren M.D. 06/15/2023 4:00 PM ECG Data Attestation: I personally reviewed and interpreted this ECG as follows: Additional Comments: EKG interpreted by me normal sinus rhythm rate of 91, normal intervals normal axis no obvious ST segment elevation or depression Telemetry was ordered by me, interpreted as normal sinus rhythm rate of 91 MDM Narrative Medical decision making differential diagnosis includes bronchitis, upper respiratory tract infection, pneumonia, acute coronary syndrome, CHF Plan is to check sepsis labs, COVID, troponin, EKG Patient has 2 troponins that are above 50 Patient's heart score is a 4 The patient's who is at bedside states that he has been coughing and having chest heaviness as well as vaping Due to the elevated troponins the escalation of treatment plan to admission was considered I have discussed the evaluation with the [facility] hospitalist team for admission Impression & Plan Chest pain, Bronchitis Discharge Plan Visit Data Chief Complaint: Flu Like Symptoms Stated Complaint: HEAVY CHEST, COUGHING UP FLEM, HEADACHES ED Provider: Eduard Villagomez Discharge Problem: Chest pain, Bronchitis Patient Disposition: Admitted As Inpatient Forms Stand Alone Forms: My [facility] Prescriptions Prescriptions: No Action amlodipine [Norvasc] 5 mg Tablet 5 mg PO QAM metformin 1,000 mg tablet 1,000 mg PO BIDM aspirin 81 mg Tablet,Delayed Release (Dr/Ec) 81 mg PO QAM lisinopril 2.5 mg tablet 2.5 mg PO QAM Novolin 70/30 U-100 Insulin 100 unit/mL (70-30) Suspension 18 unit subcut BIDWMEAL pioglitazone 15 mg tablet 15 mg PO QAM rosuvastatin 10 mg tablet 10 mg PO QAM ferrous sulfate 325 mg (65 mg iron) Tablet 325 mg PO QAM Referrals Referrals: Lior Merritt DO [Outside Practitioners] -
--- NOTE | 2023-06-15 17:35 | History & Physical Report ---
Date of Service June 15, 2023 Assessment & Plan (1) Elevated troponin: Plan: This is a 68 y/o male with insulin-requiring DM2, AAA, HTN, dyslipidemia, CKD3, tobacco use disorder, and other history as listed below who presented to the ED today with chest discomfort and heaviness. He has a strong family history of CAD with his mother requiring CABG x 4 in her early 60s although pt denies prior history of cardiac disease. He has multiple risk factors including poorly controlled DM, HTN, dyslipidemia and tobacco use (former smoker, current vaper). In the ED, EKG personally reviewed and without ischemic changes. Initial troponin elevated at 56.0, repeat 2 hrs later was 50.8. Due to multiple risk factors for cardiac disease and elevated troponin, pt was referred for observation as cardiac rule out. - Observe in PCU overnight - Serial troponin, EKG in the AM and prn for chest pain - Consult cardiology for recommendations on additional work-up - Check ECHO - Lipid panel in AM (2) Chest pain: (3) Insulin-requiring or dependent type II diabetes mellitus: Plan: A1c in AM Holding oral glycemic agents Insulin sliding scale Diabetic diet, BSG ACHS (4) Hypertension: (5) Hyperlipidemia: (6) URI (upper respiratory infection): Plan: Supportive care Fluticasone nasal spray Guaifenesin with codeine prn for cough (7) Hypercalcemia: Plan: SPEP, PTH, Vit D in AM Random protein creatinine ratio, random urine protein Plan Continue other home medications as appropriate. Pt seen and reviewed with collaborating physician, Dr. Randhawa. Plan of care discussed and as outlined above Code Status: Full Code DVT Prophylaxis: Clarence Bernal PA-C History of Present Illness Chief Complaint: chest discomfort Primary Care Provider: Hardik Oscar MD This is a 68 y/o male with insulin-requiring DM2, AAA, HTN, dyslipidemia, CKD3, tobacco use disorder, and other history as listed below who presented to the ED today with chest discomfort and heaviness. He reports that he started three days ago with scratchy throat, malaise, achiness then developed a cough. Cough is intermittently productive of yellow sputum but no hemoptysis. Today, noted chest discomfort and heaviness described as "it just doesn't feel right" but denies overt chest pain. He was concerned about possible pneumonia so came to the ED for evaluation. Work-up in the ED revealed an elevated troponin. Pt currently feels okay right now other than the cough. Chest discomfort is worse with coughing. No palpitations, lightheadedness or syncope. Denies fevers, chills, sweats, diarrhea, dizziness. He had a headache yesterday but better today. Nausea for the last few days but no vomiting. Notes increased frequency of indigestion "recently" that is often associated with eating specific foods. He denies sick contacts. Denies significant cardiac history. He vapes, previously smoked cigarettes. Family history of heart disease - mother had CABG x 4 in her early 60s. Allergies Allergy/AdvReac Type Severity Reaction Status Date / Time amoxicillin [From Augmentin] Allergy Unknown pruritic Verified 06/15/23 16:34 rash clavulanic acid Allergy Unknown pruritic Verified 06/15/23 16:34 [From Augmentin] rash Home Medications Medication Instructions Recorded Confirmed Type amlodipine 5 mg tablet (Norvasc) 5 mg PO QAM 07/14/18 06/15/23 History aspirin 81 mg tablet,delayed 81 mg PO QAM 01/03/22 06/15/23 History release insulin human U-100 NPH-regulr 18 unit subcut BIDWMEAL 01/03/22 06/15/23 History 70-30 mix 100 unit/mL subcutaneous susp (Novolin 70/30 U-100 Insulin) lisinopril 2.5 mg tablet 2.5 mg PO QAM 01/03/22 06/15/23 History metformin 1,000 mg tablet 1,000 mg PO BIDM 01/03/22 06/15/23 History ferrous sulfate 325 mg (65 mg 325 mg PO QAM 06/15/23 06/15/23 History iron) tablet pioglitazone 15 mg tablet 15 mg PO QAM 06/15/23 06/15/23 History rosuvastatin 10 mg tablet 10 mg PO QAM 06/15/23 06/15/23 History Past Med/Surg History Medical History (Updated 06/15/23 @ 19:44 by Aline Bernal PA-C) History of Lyme disease Acute calculous cholecystitis Acute gallstone pancreatitis Back pain DDD (degenerative disc disease), lumbar Sciatica of right side Spinal stenosis ASCVD (arteriosclerotic cardiovascular disease) CKD (chronic kidney disease) stage 3, GFR 30-59 ml/min Hypertension Hyperlipidemia Diabetes Surgical History Hx laparoscopic cholecystectomy History of hernia surgery Family History (Updated 06/15/23 @ 18:08 by Aline Bernal PA-C) Mother Heart disease Social History (Updated 06/15/23 @ 19:30 by Cece Randhawa DO) Smoking Status: Current every day smoker Tobacco Type: E-cigarettes / Vaping Cigarettes Per Day: vapes; Do You Dip or Chew Tobacco: No; Hx Alcohol Use: No Hx Substance Use: No Preferred Language: Croatian Communication Ability: Effective Visual Impairment: No Limitations Pan Washer Required: No Beliefs That Will Affect Care: None marital status: Current Living Situation: Spouse How many Children do You have: 1 Feels Safe at Home: Yes Assistive Devices: None Review of Systems Review of Systems: All systems reviewed & are unremarkable except as noted in HPI & below Constitutional: + fatigue and + malaise; no fever and no chills Ear, Nose, Mouth, Throat: + nasal congestion and + sore throat Respiratory: + cough Cardiovascular: no palpitations and no syncope Gastrointestinal: no abdominal pain, no vomiting and no diarrhea/loose stools Genitourinary: no dysuria or no hematuria Integumentary: no yellowing of the skin Neurologic: no syncope and no headache(s) Physical Exam Physical Exam: General: awake, alert, NAD Eyes: no scleral icterus Mouth: moist mucus membranes Heart: RRR Lungs: CTA bilaterally without wheezes, rhonchi or rales Abd: soft, NTND, +BS Extremities: no pedal edema; distal pulses intact and equal Skin: no jaundice, no decreased turgor, cap refill <3 seconds Neuro: moving all extremities, no focal deficits, oriented x 3, no dysarthria Results & Data Results & Data Vital Signs (Past 12 Hours) Vital Signs Temp Pulse Pulse Resp BP BP Pulse Ox 06/15/23 16:13 81 18 154/86 H 96 06/15/23 14:04 36.4 C L 92 H 18 162/99 H 96 O2 Del Method 06/15/23 16:13 Room Air 06/15/23 14:04 Room Air Laboratory Results Laboratory Results - last 24 hr 06/15/23 06/15/2323 14:06 14:55 16:22 WBC 6.59 RBC 4.87 Hgb 14.4 Hct 43.5 MCV 89.3 MCH 29.6 MCHC 33.1 RDW Std Deviation 43.2 RDW Coeff of Erica 13.2 Plt Count 209 MPV 10.0 Immature Gran % (Auto) 0.2 Neut % (Auto) 54.4 Lymph % (Auto) 28.1 Upson % (Auto) 15.3 Eos % (Auto) 1.7 Baso % (Auto) 0.3 Neut # (Auto) 3.59 Lymph # (Auto) 1.85 Upson # (Auto) 1.01 H Eos # (Auto) 0.11 Baso # (Auto) 0.02 Immature Gran # (Auto) 0.01 Sodium 138 Potassium 4.0 Chloride 101 Carbon Dioxide 29 Anion Gap 8 BUN 23 Creatinine 1.36 Est Cr Clr Drug Dosing 57.1 Est GFR ( Amer) 60.7 Est GFR (Non-Af Amer) 52.3 BUN/Creatinine Ratio 16.9 Glucose 93 Lactate 1.5 Calcium 11.0 H Total Bilirubin 0.6 AST 38 ALT 33 Alkaline Phosphatase 74 Troponin I High Sens 56.0 H* 50.8 H* Total Protein 8.6 H Albumin 4.8 Globulin 3.8 Albumin/Globulin Ratio 1.3 SARS-CoV-2 (PCR) NEGATIVE Influenza Type A (PCR) Negative Influenza Type B (PCR) Negative RSV (RT-PCR) Negative Diagnostic Findings Chest X-Ray 06/15/23 14:07 SINGLE VIEW CHEST CLINICAL HISTORY: Productive cough. Chest heaviness. FINDINGS: A PA chest radiograph is compared to study dated 07/25/2018. The cardiomediastinal silhouette is unremarkable noting atherosclerotic calcification of the thoracic aorta. The lungs and pleural spaces are clear. No pneumothorax is seen. The skeletal structures are osteopenic. The bony thorax is grossly intact. Cholecystectomy clips are seen in the right upper quadrant. IMPRESSION: No active disease in the chest. ACT 112: Negative or not required by law. Electronically signed by: Fantasma Warren M.D. 06/15/2023 4:00 PM Medications Administered Discontinued Medications Aspirin (Aspirin Chew 324 Mg) 324 mg PO NOW STA Stop: 06/15/23 16:09 Last Admin: 06/15/23 16:11 Dose: 324 mg Documented By: OAM Supervising Physician Co-Signing Physician Notes I have seen and examined the patient and have discussed the case with the provider above. I agree with the assessment and plan as stated with the following exceptions. 68 yo diabetic smoker presents with acute chest heaviness as noted above. He vapes and diabetes is uncontrolled. He has a strong family h/o CAD in his mother. Reports ongoing recent cold symptoms including nasal congestion, cough. Chest heaviness spontaneously resolved in the ER. Denies SOB. Eager to be discharged. Per record review, Most recent A1C was November 2022 --8.4 reflecting poor overall control of blood sugar. He reports neuropathic symptoms in his legs for the past year. His highly sensitive trop is 56-->51 and EKG reveals NSR with no evidence of active ischemia. He has an unremarkable exam. Cardiac auscultation reveals S1/2 heard without evidence of murmurs, gallops or rubs or edema. No chest pain to palpation of chest wall. Hemodynamically stable and afebrile, oxygenating well on room air. Labs/EKG/Imaging/Meds reviewed. Trop as noted above. Ca 11 and elevated total protein on labwork. Per record review his last ca was 10.1 and he does have a history of proteinuria. 1. Chest heaviness-ACS less likely, but patient has risk factors as noted above. Lipid panel in am. 2. DMII-uncontrolled wtih complications. Repeat A1C in am. Basal bolus insulin during this admission 3. Hypercalcemia-elevated total protein and h/o proteinuria--likely from DMII that is poorly controlled. PTH, 25OH, repeat Ca in am after 1L NSS, Phos, SPEP (couldn't order UPEP in system; defer to outpatient if high suspicion). 4. Peripheral neuropathy-check TSH, iron, B12/folate levels. 5. Smoking-cessation advised. Appreciate further cardiology recommendations and assistance with appropriate test to risk stratify. Echo in am. Cont telemetry monitoring overnight. DO Edis (2) Chest pain Chest pain type: unspecified Qualified Code(s): R07.9 - Chest pain, unspecified (4) Hypertension Hypertension type: primary hypertension Qualified Code(s): I10 - Essential (primary) hypertension (5) Hyperlipidemia Hyperlipidemia type: unspecified Qualified Code(s): E78.5 - Hyperlipidemia, unspecified (6) URI (upper respiratory infection) URI type: unspecified viral URI Qualified Code(s): J06.9 - Acute upper respiratory infection, unspecified
[2023-06-15] MEDS ORDERED: GLUCOSE 10 TAB/TUBE PO PRN (19:29)
[2023-06-15] MEDS ORDERED: GLUCOSE 40% GEL 15 GM TUBE PO PRN (19:29)
[2023-06-15] MEDS ORDERED: GLUCAGON FOR INJ 1 MG VIAL SQ PRN (19:29)
[2023-06-15] MEDS ORDERED: CARBOHYDRATES FOR HYPOGLYCEMIA PO PRN (19:29)
[2023-06-15] MEDS ORDERED: DEXTROSE 50% 50 ML SYRINGE IV PRN (19:29)
[2023-06-15] MEDS ORDERED: INSULIN ASPART PER UNIT CHARGE ONE (19:49)
[2023-06-15] MEDS: INSULIN ASPART PER UNIT CHARGE SC SCH (19:51)
[2023-06-15] MEDS ORDERED: SODIUM CHLORIDE 0.9% 1,000 ML IV SCH (20:00)
[2023-06-15] MEDS ORDERED: guaiFENesin/CODEINE 100MG/10MG 5ML UDC PO PRN (20:57)
[2023-06-15] MEDS ORDERED: NITROGLYCERIN SL 0.4 MG/TAB TAB SL PRN (20:57)
[2023-06-15] MEDS ORDERED: ACETAMINOPHEN 325 MG TAB PO PRN (20:57)
[2023-06-16 01:36] LABS: Total Protein Urine Random 32.4 mg/dl (0-11.9)
[2023-06-16 01:41] LABS: Creatinine Urine Random 74.2 mg/dl; Protein Creatinine Ratio Urine 0.4 (0-0.2)
[2023-06-16 05:33] LABS: Chol HDL Ratio 3.3 (0-5); Phosphorus 3.5 mg/dl (2.5-4.9)
[2023-06-16 05:49] LABS: Thyroid Stimulating Hormone 2.106 uIu/ml (0.300-4.500)
[2023-06-16 05:50] LABS: Troponin I High Sensitivity 52.5 pg/ml (0-20)
[2023-06-16 05:55] LABS: Ferritin 141.7 ng/ml (8-388)
[2023-06-16 06:18] LABS: Folate (Folic Acid),Ser orPlas 15.26 ng/ml (>5.38)
[2023-06-16 07:55] LABS: Estimated Average Glucose 186 mg/dl; Hemoglobin A1C 8.1 % (4.5-5.6)
[2023-06-16] MEDS ORDERED: ENOXAPARIN INJ 40 MG/0.4 ML SYR SQ SCH (09:00)
[2023-06-16] MEDS: INSULIN ASPART PER UNIT CHARGE SC SCH ×4 (09:05→22:24)
[2023-06-16] MEDS: FLUTICASONE PROPIONATE NA SPR 16 GM BTL SCH (09:06)
[2023-06-16] MEDS: amLODIPine BESYLATE 5 MG TAB PO SCH (09:07)
--- OUTSIDE RECORDS SUMMARY | 2023-06-16 09:07 | External Medical Summary | Summary of Care ---
Author Name Unknown Organization [facility] Address [address] [place] [address] Phone [phone] Care Team Providers Care Speech Language Therapist Name Role Phone Hardik Oscar MD Primary Care Provider [phone] Reason for Visit * Reason Comments Follow Up 8-10 week f/u; pt andrade s no complaints since GLYNN * Precert (Within 10 days (routine)) - Authorized Specialty Diagnoses / Procedures Referred By Carlos Alberto benitez Referred To Contact Ophthalmology Diagnoses Central retinal vein occlusion, left eye, with macular edema Procedures AFLIBERCEPT IO SOLN, PER 1MG, INJ OK INTRAVITREAL NJX PHARMACOLOGIC AGT SPX Hector Wise DO [address] [place] [address] Referral ID Status Reason Start Date Expiration Date V isits Requested Visits Authorized [id number] Authorized Precert 10/26/2020 07/28/2099 99 99 Encounter Details Date Type Department Care Team Description 04/23/2023 Office Visit Ophthalmology, [facility] [address] [place] [address] Hector Wise DO [address] [place] [address] Central retinal vein occlusion with macular edema of left eye* Allergies Active Allergy Reactions Severity Noted Date Comments Amoxicillin-Pot Clavulanate 07/24/20 07 Pruritic rash documented as of this encounter (statuses as of 04/23/2023) Medications Medication Sig Dispensed Refills Start Date End Date Status ONE TOUCH TEST STRIPS TEST VIIndications:DM type 2, goal A1c below 7 Test bid 1box 11 05/06/2006 Active aspirin enteric coated 81 MG TBEC Take 1 Tablet by mouth in the morning. 0 Active Insulin NPH Isophane & Regular (70-30) 100 UNIT/ML Subcutaneous Suspension (NovoLIN 70/30)Indications:T ype 2 diabetes mellitus with hemoglobin A1c goal of less than 7.0% (HCC) Inject under the skin 2 times a day before breakfast and supper. 18 units before breakfast and 15 units before supper. 10 mL 1 10/23/2021 Active DULoxetine HCl 30 MG Oral Capsule Delayed Release Particles (Cymbalta)Indicatio ns:Spinal stenosis of lumbar region without neurogenic claudication,Right lumbar radiculopathy Take by mouth 1 Capsule in the morning. Do not cut, crush or chew. 30 Capsule 5 01/22/2022 Active metFORMIN HCl 1000 MG Oral Tablet (Glucophage) TAKE 1 TABLET BY MOUTH TWO TIMES DAILY WITH MORNING AND EVENING MEAL 180 Tablet 3 04/17/2022 Active Rosuvastatin Calcium 10 MG Oral Tablet (Crestor)Indication s:Dyslipidemia Take 1 Tablet by mouth in the morning. 90 Tablet 3 12/20/2022 Active amLODIPine Besylate 5 MG Oral Tablet (Norvasc)Indication s:HTN, goal below 140/90 TAKE 1 TABLET BY MOUTH EVERY DAY 90 Tablet 1 02/01/2023 Active Lisinopril 2.5 MG Oral Tablet (Prinivil)Indicatio ns:HTN, goal below 130/80 Take 1 tablet by mouth once daily 90 Tablet 3 03/14/2023 Active Pioglitazone HCl 15 MG Oral Tablet (Actos) Take 1 Tablet by mouth in the morning. 30 Tablet 11 03/15/2023 Active Empagliflozin 10 MG Oral Tablet (Jardiance)Indicati ons:Type 2 diabetes mellitus with stage 3a chronic kidney disease, with long-term current use of insulin (HCC) Take 1 Tablet by mouth in the morning. 90 Tablet 3 12/20/2022 3 Discontinue d(Medicatio n List Clean Up) Hospital, Clinic, or Other Facility Administered Medication Ordered Dose Route Frequency Start Date End Date Status Aflibercept (Eylea) intraviteal prefilled syringe 2 mgIndications:Central retinal vein occlusion with macular edema of left eye 2 mg IZ PRN 12/11/2022 12/11/2023 Active ROPivacaine (Naropin) inj 1.5 mgIndications:Central retinal vein occlusion with macular edema of left eye 1.5 mg IJ PRN 12/11/2022 12/11/2023 Active documented as of this encounter (statuses as of 04/23/2023) Active Problems Problem Noted Date AAA (abdominal aortic aneurysm) 12/17/19 21 Overview: 3.9 cm AAA noted on MRI of Spine 11/04/20 Chronic kidney disease, stage 3a 021 Overview: Per CKD protocol Type 2 diabetes mellitus wit h stage 3a chronic kidney disease, with long-term current use of insulin 12/06/2020 Overview: Per CKD protocol Hypertensive kidney disease with stage 3 a chronic kidney disease 06/06/2020 Overview: Per CKD protocol Pancreatic divisum 07/31/2018 Overview: Noted on MRCP HTN, goal below 130/80 10/03/2015 Overview: Per HTN Protocol #27. Tobacco use disorder 02/01/2010 Noise-induced hearing loss 02/01/2010 Diverticulosis of colon 11/30/2009 Dyslipidemia 07/07/2009 Overview: Per Lipid Taxonomy. Type 2 diabetes mellitus with hemoglobin A1c goal of less than 7.0% 05/26/2009 Overview: Per Diabetes Taxonomy. ICD-10 update of inactive term Deviated nasal septum 05/14/2008 Chronic rhinitis 05/14/2008 documented as of this encounter (statuses as of 04/23/2023) Resolved Problems Problem Noted Date Resolved Date Hypertensive kidney disease with chronic kidney disease stage III 04/21/2019 06/09/2020 Overview: Per CKD protocol Type 2 diabetes mellitus wit h stage 3 chronic kidney disease, with long-term current use of insulin 02/16/2015 021 Overview: Per CKD protocol Kidney disease, chronic, stage III (GFR 30-59 ml /min) 10/11/2014 11/05/2018 Overview: Per CKD protocol #1 HTN, GOAL BELOW 140/80 03/17/2012 6 Overview: Per HTN Protocol #27. HTN, GOAL BELOW 130/80 08/24/2009 2 Overview: Per HTN Taxonomy. FOLLOWING SURGERY, ENDOSCOPIC SINUS SURGERY 05/2907/31/2018 History of tobacco use 06/07/2008 0 CHR ETHMOIDAL SINUSITIS,LEFT 05/14/200809/2018 CHR MAXILLARY SINUSITIS,LEFT 05/14/200809/2018 HYPERTRPH NASAL TURBINAT,LEFT MIDDLE 05/14/2008 07/31/2018 HTN, goal below 140/90 03/08/2008 0 Overview: Per HTN Taxonomy. Type 2 diabetes mellitus wit h hemoglobin A1c goal of less than 7.0% 10/09/2005 05/26/2009 Overview: Per Diabetes Taxonomy. ICD-10 update of inactive term Dyslipidemia, goal to be determined 10/09/2005 07/07/2009 Overview: Per Lipid Taxonomy. documented as of this encounter (statuses as of 04/23/2023) Immunizations Name Administration Dates Next Due COVID-19 mRNA, LNP-s, No Pre serve, 2-Dose Series (Pfizer) 11/01/2020,10/11/2020 Pneumococcal Polysaccharide PPV23 (Pneumovax) documented as of this encounter Social History Tobacco Use Types Packs/Day Years Used Date Smoking Tobacco: Every Day Cigarettes 1 32 Last attempted to quit: 04/28/2013 Vaporizer Smokeless Tobacco: Never Comments:started smoking age 16, 1 pk qd Alcohol Use Standard Drinks/Week Comments No 0 (1 standard drink = 0.6 oz pur e alcohol) pt in NA Food Insecurity Answer Date Recorded Within the past 12 months, y ou worried that your food would run out before you got money to buy more. Never true 12/14/2022 Within the past 12 months, t he food you bought just didn't last and you didn't have money to get more. Never true 12/14/2022 Sex Assigned at Date Recorded Male 10/28/2018 9:44 AM E DT Job Start Date Occupation Industry Not on file Not on file Not on file documented as of this encounter Progress Notes * Hector Wise, DO - 04/23/2023 11:45 AM EDT [facility] [place] Nursing notes reviewed. Eye vitals reviewed. Mood and Affect: normal HPI: Rj Stern is a 67 year old male who presents for evaluation of CRVO. No other eye complaints. Denies significant pain. Base Eye Exam Visual Acuity (Snellen - Linear) Right Left Dist sc 20/30 -2 20/150 -1 Dist ph sc 20/40 -2 Tonometry (Tonopen, 11:19 AM) Right Left Pressure 14 16 Pupils Pupils Right PERRL Left PERRL Visual Escalera (Counting fingers) Right Left Full Full Extraocular Movement Right Left Full, Ortho Full, Ortho Neuro/Psych Oriented x3: Yes Mood/Affect: Normal Dilation Both eyes: 0.5% Proparacaine @ 11:18 AM Dilation #2 Left eye: 1.0% Mydriacyl, 2.5% Phenylephrine @ 11:19 AM EXTERNAL: The ocular adnexae are unremarkable. SLE: Lids/Lashes: wnl OU Conjunctiva/Sclera: quiet OU Cornea: clear OU Anterior Chamber: deep and quiet OU Iris: normal OU; no NVI OU Lens: 1+ NSC OU Dilated fundus exam OD 04/24/2022: vitreous: PVD optic nerve: 0.3, no edema/pallor/NVD macula: wnl vessels: wnl periphery: wnl, no RT/RD Dilated fundus exam OS: vitreous: clear optic nerve: 0.3, resolved edema and hemorrhage, early collaterals macula: trace CME with hemorrhage vessels: dilated and tortuous midperiphery: circumscribed chorioretinal atrophy along the inferotemporal arcade periphery: hemorrhage in all 4 quadrants, no RT/RD OCT Interpretation: OD: 04/24/2022: wnl, no cme/srfluid , +pvd OS: resolved CME, resolved srfluid, no pvd--worse 91um prior STABLE, prior trace worse, prior STABLE, prior improved 166um prior worse 151um prior trace improve, prior traced worse, prior no sig change, prior worse, prior improved , prior worse, prior improved 484 A/P: 1. Non-Ischemic Central Retinal Vein Occlusion OS -onset: ?early 09/2020 -s/p Eylea (02/12/23, 12/11/22, 10/09/22, 08/07/22, 06/12/22, 04/24/22, 02/13/22, 12/19/21, 10/27/21, 09/12/21, 08/01/21, 06/26/21, 05-08-21, 04-04-21, 01-17-21, 11-30-20, 10/26/20)--great improvment - 10 weeks since last injection, worse at 7 and 10 weeks in past 2. DM2 -no retinopathy -recommend HgbA1C <7, BP and lipid control. 3. Cataracts OU -not visually significant TIMEOUT PROCEDURE: correct patient identity-YES correct procedure and consent-YES verified side and site-YES correct patient position-YES all necessary equipment/prior studies present-YES reviewed special requirements of this patient-YES PROCEDURE: Intravitreal injection of Eylea (aflibercept) 2mg OS INFORMED CONSENT: Risks, benefits and alternatives have been discussed with the patient. Risks include, but are not limited to: retinal tears, detachments, hemorrhage, glaucoma, infection, cataracts, need for more procedures and the potential risk of arterial thromboembolic events following use of intravitreal VEGF inhibitors defined as nonfatal stroke, nonfatal myocardial infarction or vascular . Patient is aware of these risks and consents to the procedure. DESCRIPTION OF PROCEDURE: The procedure site was confirmed. Topical proparacaine was applied to the surface of the eye after which subconjunctival anesthetic was administered. The area was prepped in the standard aseptic manner with 5% Betadine solution. An eyelid speculum was placed and 2mg (0.05 ml) of Eylea was injected 3.75 mm posterior to the limbus into the midvitreous cavity with a 30 gauge short needle. The eye speculum was removed, Betadine was flushed from the eye and optic nerve perfusion was insured. The patient tolerated the procedure without difficulty and was given followup instructions and instructed to use ophthalmic ointment 3x/day as needed. Hector Wise DO, performed the procedure in its entirety. F/u 8-10 weeks - dilate and OCT OS Hector Wise DO 921 CC: Liu Linares, OD documented in this encounter Nursing Notes * Gabriella Valenzuela RN - 04/23/2023 11:36 AM EDT Rj Stern to receive # 18 Eylea 2mg Injection of the Left eye. Correct eye confirmed with patient and marked by Hector Wise DO Eylea 2mg lot # [id number] Exp. Date: 08/29/23 * JORDIN Hankins - 04/23/2023 11:12 AM EDT Rj Stern is a 67 year old year old male who presents for nickie-ischemic CRVO OS. Last Office Visit: 02/12/2023 (in office), Visit date not found (telemedicine) Patient currently states no change in vision. Are you diabetic? Yes. Do you check your blood sugars daily? NO. Last Hemoglobin A1C: Lab Results Component Value Date/Time HGBA1C 8.4 (H) 12/18/2022 09:36 AM HGBA1C 7.3 (H) 06/15/2022 09:44 AM HGBA1C 7.8 (H) 01/19/2022 03:20 PM HGBA1C 7.6 (A) 01/12/2022 12:00 AM HGBA1C 7.5 (H) 04/29/2019 09:45 AM HGBA1C 7.3 (H) 10/25/2018 08:32 AM HGBA1C 9.2 (H) 12/07/2016 10:[address]? yes OCT image(s) of left eye acquired and filed/scanned into chart. documented in this encounter Plan of Treatment Upcoming Encounters Date Type Specialty Care Team Description 06/07/2023 Office Visit [facility] [address] [place] [phone] Scheduled Orders Name Type Priority Associated Diagnoses Orde r Schedule RETINA SCAN DIAGNOSTIC IMAGE, POSTERIOR Procedures Routine Central retinal vein occlusion with macular edema of left eye Ordered: 04/23/2023 Health Maintenance Due Date Last Done Comments DISCUSS TOBACCO CESSATION (REFER TO SMARTSET #9337) 1955 DXA Scan 1953 DTaP,Tdap,and Td Vaccines (1 - Tdap) 1972 Cologuard 1998 Fecal Occult Blood Test 1998 Sigmoidoscopy 1998 Zoster Vaccines (1 of 2) 2003 Pneumococcal Vaccine: 65+ Years (2 - PCV) 03/14/2007 03/14/2006 Colonoscopy 12/01/2019 11/30/2009 Colorectal Cancer Screening 12/01/2019 COVID-19 Vaccine (3 - Pfizer series) 12/27/2020 11/01/2020, 10/11/2020 CKD PHOS USE SMARTSET [id number] 10/03/2021 03/0 02/2021, 10/25/2018, 12/07/2016, Additional history exists Diabetic Foot Exam 10/03/2021 10/03/2020, 1 , 07/31/2018, Additional history exists B-12 03/06/2022 03/06/2021, 10/25/2018 Influenza Vaccine (FLU shot) (#1) 2023 GFR 06/20/2023 12/18/2022, 12/28, 01/12/2022, Additional history exists HbA1c 06/20/2023 12/18/2022, 05/29, 01/19/2022, Additional history exists Albumin/Creatinine Ratio 12/15/2023 023, 09/15/2021, 05/05/2019, Additional history exists Depression Screening 12/15/2023 12/14/2022 CKD HGB USE SMARTSET [id number] 12/19/202312/18, 12/18/2022, 01/12/2022, Additional history exists DIABETES-EYE EXAM 02/13/2024 02/12/2023, , 09/12/2021, Additional history exists Lipid Panel 12/19/2027 12/18/2022, 08/0 03/2021, 01/15/2020, Additional history exists LUNG CANCER SCREENING - USE SMARTSET [id number] Completed 02/18/2020, 10/31/2018 GARDASIL-HPV IMMUNIZATION SERIES Aged Out No longer eligible based on patient's age to complete this topic Hepatitis B Aged Out No longer eligi ble based on patient's age to complete this topic MENINGOCOCCAL (MENACTRA/MENVEO) Aged Out No longer eligible based on patient's age to complete this topic documented as of this encounter Medical Devices Not on filedocumented as of this encounter Visit Diagnoses Diagnosis Central retinal vein occlusion with macular edema of left eye- Primary documented in this encounter Administered Medications Active Administered Medications - up to 3 most recent administrations Medication Order MAR Action Action Date Dose Rate Site Aflibercept (Eylea) intraviteal prefilled syringe 2 mg 2 mg, Intravitreal, PRN Other, Starting on Sat12/11/22 at 0947, Until Sat12/11/23 at 0946, For 365 days Given 04/23/2023 11:38 AM EDT 2 mg Eye Left Given 02/12/2023 2:09 PM EDT 2 mg Ey e Left Given 12/11/2022 9:53 AM EDT 2 mg Ey e Left ROPivacaine (Naropin) inj 1.5 mg 1.5 mg, Injection, PRN Other, Starting on Sat12/11/22 at 0947, Until Sat12/11/23 at 0946, For 365 days Given 04/23/2023 11:38 AM EDT 1.5 mg Eye Left Given 02/12/2023 2:09 PM EDT 1.5 mg Ey e Left Given 12/11/2022 9:54 AM EDT 1.5 mg Ey e Left documented in this encounter Care Teams Speech Language Therapist Relationship Specialty Start Date End Date Hardik Oscar MD [address] [place] [address] PCP - General Family Medicine 04/23/23 documented as of this encounter
--- OUTSIDE RECORDS SUMMARY | 2023-06-16 09:07 | External Medical Summary | Summary of Care ---
Author Name Unknown Organization [facility] Address [address] [place] [address] Phone [phone] Care Team Providers Care Health Insurance Adjuster Name Role Phone Lior Merritt DO Primary Care Provider Reason for Visit * Reason Comments eRx-Medication Refill Encounter Details Date Type Department Care Team Description 03/13/2023 Refill Family Practice [facility] [address] [place] [address] Lior Merritt DO [address] [place] [address] HTN, goal below 130/80 Allergies Active Allergy Reactions Severity Noted Date Comments Amoxicillin-Pot Clavulanate 07/24/20 07 Pruritic rash documented as of this encounter (statuses as of 03/14/2023) Medications Medication Sig Dispensed Refills Start Date End Date Status ONE TOUCH TEST STRIPS TEST VIIndications:DM type 2, goal A1c below 7 Test bid 1box 11 05/06/2006 Active aspirin enteric coated 81 MG TBEC Take 1 Tablet by mouth in the morning. 0 Active Insulin NPH Isophane & Regular (70-30) 100 UNIT/ML Subcutaneous Suspension (NovoLIN 70/30)Indications: Type 2 diabetes mellitus with hemoglobin A1c goal of less than 7.0% ([facility]) Inject under the skin 2 times a day before breakfast and supper. 18 units before breakfast and 15 units before supper. 10 mL 1 10/23/2021 Active DULoxetine HCl 30 MG Oral Capsule Delayed Release Particles (Cymbalta)Indicati ons:Spinal stenosis of lumbar region without neurogenic claudication,Right lumbar radiculopathy Take by mouth 1 Capsule in the morning. Do not cut, crush or chew. 30 Capsule 5 01/22/2022 Active metFORMIN HCl 1000 MG Oral Tablet (Glucophage) TAKE 1 TABLET BY MOUTH TWO TIMES DAILY WITH MORNING AND EVENING MEAL 180 Tablet 3 04/17/2022 Active Empagliflozin 10 MG Oral Tablet (Jardiance)Indicat ions:Type 2 diabetes mellitus with stage 3a chronic kidney disease, with long-term current use of insulin (HCC) Take 1 Tablet by mouth in the morning. 90 Tablet 3 12/20/2022 Active Rosuvastatin Calcium 10 MG Oral Tablet (Crestor)Indicatio ns:Dyslipidemia Take 1 Tablet by mouth in the morning. 90 Tablet 3 12/20/2022 Active amLODIPine Besylate 5 MG Oral Tablet (Norvasc)Indicatio ns:HTN, goal below 140/90 TAKE 1 TABLET BY MOUTH EVERY DAY 90 Tablet 1 02/01/2023 Active Lisinopril 2.5 MG Oral Tablet (Prinivil)Indicati ons:HTN, goal below 130/80 Take 1 tablet by mouth once daily 90 Tablet 3 03/14/2023 Active Lisinopril 2.5 MG Oral Tablet (Prinivil)Indicati ons:HTN, goal below 130/80 Take 1 tablet by mouth once daily 90 Tablet 3 03/07/2022 3 Discontinued Hospital, Clinic, or Other Facility Administered Medication [...] as of this encounter (statuses as of 03/14/2023) Active Problems Problem Noted Date AAA (abdominal aortic aneurysm) 12/17/19 Overview: 3.9 cm AAA noted on MRI [...] as of this encounter (statuses as of 03/14/2023) Resolved Problems Problem Noted Date Resolved Date [...] as of this encounter (statuses as of 03/14/2023) Immunizations Name Administration Dates Next Due COVID-19 mRNA, LNP-s, No Pre serve, 2-Dose Series ([place]) 11/01/2020,10/11/2020 Pneumococcal Polysaccharide PPV23 (Pneumovax) documented as [...] on file documented as of this encounter Miscellaneous Notes * Telephone Encounter - Xiomy Pinto, [facility] - 03/14/2023 9:14 AM EDTSigned Prescriptions: Disp Refills Lisinopril 2.5 MG Oral Tablet (Prinivil) 90 Tab*3 Sig: Take 1 tablet by mouth once dailyAuthorizing Provider: Tri MERRITT User: XIOMY PINTO------- documented in this encounter Plan of Treatment Upcoming Encounters Date Type Specialty Care Team Description 03/15/2023 Office Visit [facility] [address] [place] [id number] 04/23/2023 Office Visit Ophthalmology Hector Wise DO [address] [place] [address] 06/24/2023 Office Visit Family Medicine Lior Merritt DO [address] [place] [address] Health Maintenance Due Date Last Done Comments DISCUSS TOBACCO CESSATION (REFER TO SMARTSET #4634) 1955 DXA Scan 1955 DTaP,Tdap,and Td Vaccines (1 - Tdap) 1972 Cologuard 1998 Fecal Occult Blood Test 1998 Sigmoidoscopy 1998 Zoster Vaccines (1 of 2) 2003 Pneumococcal Vaccine: 65+ Years (2 - PCV) 03/14/2007 03/14/2006 Colonoscopy 12/01/2019 11/30/2009 Colorectal Cancer Screening 12/01/2019 COVID-19 Vaccine (3 - Pfizer series) 12/27/2020 11/01/2020, 10/11/2020 CKD PHOS USE SMARTSET [id number] 10/03/2021 03/0 02/2021, 10/25/2018, 12/07/2016, Additional history exists DIABETES-FOOT EXAM 10/03/2021 10/03/2020, 1 , 07/31/2018, Additional history exists B-12 03/06/2022 03/06/2021, 10/25/2018 Influenza Vaccine (FLU shot) (#1) 2023 GFR 06/20/2023 12/18/2022, 12/28, 01/12/2022, Additional history exists HbA1c 06/20/2023 12/18/2022, 05/29, 01/19/2022, Additional history exists Albumin/Creatinine Ratio 12/15/2023 023, 09/15/2021, 05/05/2019, Additional history exists Depression Screening, Annual for Pts 12 and Over 12/15/2023 12/14/2022 CKD HGB USE SMARTSET 28037 12/19/202312/18, 12/18/2022, 01/12/2022, Additional history exists DIABETES-EYE EXAM 02/13/2024 02/12/2023, , 09/12/2021, Additional history exists Lipid Panel 12/19/2027 12/18/2022, 08/0 03/2021, 01/15/2020, Additional history exists LUNG CANCER SCREENING - USE SMARTSET [id number] Completed 02/18/2020, 10/31/2018 GARDASIL-HPV IMMUNIZATION SERIES Aged [...] as of this encounter Visit Diagnoses Diagnosis HTN, goal below 130/80 Unspecified essential hypertension documented in this encounter Care Teams Health Insurance Adjuster Relationship Specialty Start Date End Date Lior Merritt DO [address] [place] [address] PCP - General Family Medicine 10/03/20 documented as of this encounter
--- OUTSIDE RECORDS SUMMARY | 2023-06-16 09:07 | External Medical Summary | Summary of Care ---
Author Name Unknown Organization [facility] Address [address] [facility] [place] [address] Phone [phone] Care Team Providers Care Animal Husbandry Manager Name Role Phone Lior Merritt DO Primary Care Provider [phone] Reason for Visit * Reason Comments Follow Up F/U 8-10 WEEKS-DIL/O CT OS; "vision just still crappy" * Precert (Within 10 days (routine)) - Authorized Specialty Diagnoses / Procedures Referred By Carlos Alberto benitez Referred To Contact Ophthalmology Diagnoses Central retinal vein occlusion, left eye, with macular edema Procedures AFLIBERCEPT IO SOLN, PER 1MG, INJ TN INTRAVITREAL NJX PHARMACOLOGIC AGT SPX Hector Wise DO [address] [address] Referral ID Status Reason Start Date Expiration Date V isits Requested Visits Authorized [id number] Authorized Precert 10/26/2020 07/28/2099 99 99 Encounter Details Date Type Department Care Team Description 02/12/2023 Office Visit Ophthalmology, [facility] [address] [place] [address] Hector Wise DO [address] [place] [address] Encounter for diabetes type 2 eye exam (HCC)*; Central retinal vein occlusion with macular edema of left eye Allergies Active Allergy Reactions Severity Noted Date Comments Amoxicillin-Pot Clavulanate 07/24/20 07 Pruritic rash documented as of this encounter (statuses as of 02/12/2023) Medications Medication Sig Dispensed Refills Start Date End Date Status ONE TOUCH TEST STRIPS TEST VIIndications:DM type 2, goal A1c below 7 Test bid 1box 11 05/06/2006 Active aspirin enteric coated 81 MG TBEC Take 1 Tablet by mouth in the morning. 0 Active Insulin NPH Isophane & Regular (70-30) 100 UNIT/ML Subcutaneous Suspension (NovoLIN 70/30)Indications:Typ e 2 diabetes mellitus with hemoglobin A1c goal of less than 7.0% (HCC) Inject under the skin 2 times a day before breakfast and supper. 18 units before breakfast and 15 units before supper. 10 mL 1 10/23/2021 Active DULoxetine HCl 30 MG Oral Capsule Delayed Release Particles (Cymbalta)Indications :Spinal stenosis of lumbar region without neurogenic claudication,Right lumbar radiculopathy Take by mouth 1 Capsule in the morning. Do not cut, crush or chew. 30 Capsule 5 01/22/2022 Active Lisinopril 2.5 MG Oral Tablet (Prinivil)Indications :HTN, goal below 130/80 Take 1 tablet by mouth once daily 90 Tablet 3 03/07/2022 Active metFORMIN HCl 1000 MG Oral Tablet (Glucophage) TAKE 1 TABLET BY MOUTH TWO TIMES DAILY WITH MORNING AND EVENING MEAL 180 Tablet 3 04/17/2022 Active Empagliflozin 10 MG Oral Tablet (Jardiance)Indication s:Type 2 diabetes mellitus with stage 3a chronic kidney disease, with long-term current use of insulin (HCC) Take 1 Tablet by mouth in the morning. 90 Tablet 3 12/20/2022 Active Rosuvastatin Calcium 10 MG Oral Tablet (Crestor)Indications: Dyslipidemia Take 1 Tablet by mouth in the morning. 90 Tablet 3 12/20/2022 Active amLODIPine Besylate 5 MG Oral Tablet (Norvasc)Indications: HTN, goal below 140/90 TAKE 1 TABLET BY MOUTH EVERY DAY 90 Tablet 1 02/01/2023 Active Hospital, Clinic, or Other Facility Administered Medication [...] as of this encounter (statuses as of 02/12/2023) Active Problems Problem Noted Date AAA (abdominal [...] as of this encounter (statuses as of 02/12/2023) Resolved Problems Problem Noted Date Resolved Date [...] as of this encounter (statuses as of 02/12/2023) Immunizations Name Administration Dates Next Due COVID-19 [...] this encounter Progress Notes * Hector Wise, - 02/12/2023 2:00 PM EDT [facility] [place] Nursing notes reviewed. Eye vitals reviewed. Mood and Affect: normal HPI: Rj Stern is a 67 year old male who presents for evaluation of CRVO. No other eye complaints. Denies significant pain. Base Eye Exam Visual Acuity (Snellen - Linear) Right Left Dist sc 20/25 +1 20/70 +1 Dist ph wi 20/40 -1 Tonometry (Tonopen, 1:53 PM) Right Left Pressure 13 13 Pupils Pupils APD Right PERRL None Left PERRL None Visual Escalera (Counting fingers) Right Left Full Full Extraocular Movement Right Left Full, Ortho Full, Ortho Neuro/Psych Oriented x3: Yes Mood/Affect: Normal Dilation Both eyes: 0.5% Proparacaine @ 1:53 PM Dilation #2 Left eye: 1.0% Mydriacyl, 2.5% Phenylephrine @ 1:53 PM Dilation Comments Patient cautioned that effects of dilation may last 2-7 hours dependant upon individual reaction. It was discussed that driving while dilated is not recommended. Strabismus Exam Correction: wi Observations: Ortho Distance Near Near +3DS N Bifocals cover/uncover, and alternate cover EXTERNAL: The ocular adnexae are unremarkable. SLE: [...] +pvd OS: resolved CME, resolved srfluid, no pvd--STABLE, prior trace worse, prior STABLE, prior [id number] prior worse 151um prior trace improve, prior traced worse, prior no sig change, prior worse, prior improved , prior worse, prior improved 484 A/P: 1. Non-Ischemic Central Retinal Vein Occlusion OS -onset: ?early 09/2020 -s/p Eylea (12/11/22, 10/09/22, 08/07/22, 06/12/22, 04/24/22, 02/13/22, 12/19/21, 10/27/21, 09/12/21, 08/01/21, 06/26/21, 05-08-, 04-04-, 01-17-21, 11-30-, 10/26/20)--great improvment - 9 weeks since last injection, worse at 7 [...] in this encounter Nursing Notes * Gabriella Valenzueal RN - 02/12/2023 2:08 PM EDT Rj Stern to receive # 7 Eylea 2mg Injection of the Left eye. Correct eye confirmed with patient and marked by Hector Wise DO Eylea 2mg lot # [id number] Exp. Date: 09/27/23 * Conchis Mathis RN - 02/12/2023 1:45 PM EDT Rj Stern is a 67 year old year old male who presents for Non ischemic CRVO OS. Last Office Visit: 12/11/2022 (in office), Visit date not found (telemedicine) Patient currently states "vision just still crappy" Are you diabetic? Yes. Do you check your blood sugars daily? YES. Fasting BS this mornin mg/dl. Last Hemoglobin A1C: Lab Results Component Value [...] [facility] [address] [place] [address] 04/23/2023 Office Visit Ophthalmology Hector Wise DO [address] [place] [address] 06/24/2023 Office Visit Family Medicine Lior Merritt, [address] [place] [address] Health Maintenance Due Date Last Done Comments DISCUSS TOBACCO CESSATION (REFER TO SMARTSET #1368) 1953 DXA Scan 1953 DTaP,Tdap,and Td Vaccines (1 - Tdap) 1972 Cologuard 1998 Fecal Occult Blood Test 1998 Sigmoidoscopy 1998 Zoster Vaccines (1 of 2) 2003 Pneumococcal Vaccine: 65+ Years (2 - PCV) 03/14/2007 03/14/2006 Colonoscopy 12/01/2019 11/30/2009 Colorectal Cancer Screening 12/01/2019 COVID-19 Vaccine (3 - Pfizer series) 12/27/2020 11/01/2020, 10/11/2020 CKD PHOS USE SMARTSET [id number] 10/03/2021 03/0 02/2021, 10/25/2018, 12/07/2016, Additional history exists DIABETES-FOOT EXAM 10/03/2021 10/03/2020, 1 , 07/31/2018, Additional history exists B-12 03/06/2022 03/06/2021, 10/25/2018 Influenza Vaccine (FLU shot) (#1) 2023 GFR 06/20/2023 12/18/2022, 12/28, 01/12/2022, Additional history exists HbA1c 06/20/2023 12/18/2022, 05/29, 01/19/2022, Additional history exists Albumin/Creatinine Ratio 12/15/2023 023, 09/15/2021, 05/05/2019, Additional history exists Depression Screening, Annual for Pts 12 and Over 12/15/2023 12/14/2022 AAA MONITORING; CT OR US YEARLY 12/19/2023 12/18/2022, 12/28/2020, 10/29/2018 AAA ULTRASOUND YEARLY 12/19/2023 12/18/2022 , 12/28/2020, 10/29/2018 CKD HGB USE SMARTSET [id number] 12/19/202312/18, 12/18/2022, 01/12/2022, Additional history exists DIABETES-EYE EXAM 02/13/2024 02/12/2023, , 09/12/2021, Additional history exists Lipid Panel 12/19/2027 12/18/2022, 08/0 03/2021, 01/15/2020, Additional history exists LUNG CANCER SCREENING - USE SMARTSET [id number] Completed 02/18/2020, 10/31/2018 ABDOMINAL AORTIC ANEURYSM (AAA) SCREENING Completed 12/18/2022, 12/28/2020, 10/29/2018 GARDASIL-HPV IMMUNIZATION SERIES Aged Out No longer [...] as of this encounter Visit Diagnoses Diagnosis Encounter for diabetes type 2 eye exam (HCC)- Primary Type II or unspecified type diabetes mellitus without mention of complication, not stated as uncontrolled Central retinal vein occlusion with macular edema of left eye documented in this encounter Administered Medications Active Administered Medications - up to 3 most recent administrations Medication Order MAR Action Action Date Dose Rate Site Aflibercept (Eylea) intraviteal prefilled syringe 2 mg 2 mg, Intravitreal, PRN Other, Starting on Sat12/11/22 at 0947, Until Sat12/11/23 at 0946, For 365 days Given 02/12/2023 2:09 PM EDT 2 mg Eye L eft Given 12/11/2022 9:53 AM EDT 2 mg Ey e Left ROPivacaine (Naropin) inj 1.5 mg 1.5 mg, Injection, PRN Other, Starting on Sat12/11/22 at 0947, Until Sat12/11/23 at 0946, For 365 days Given 02/12/2023 2:09 PM EDT 1.5 mg Eye Left Given 12/11/2022 9:54 AM EDT 1.5 mg Ey e Left documented in this encounter Care Teams Animal Husbandry Manager Relationship Specialty Start Date End Date Lior Merritt DO [address] [place] [address] PCP - General Family Medicine 10/03/20 documented as of this encounter
--- OUTSIDE RECORDS SUMMARY | 2023-06-16 09:07 | External Medical Summary | Summary of Care ---
Author Name Unknown Organization [facility] Address [address] [facility] [address] Phone [phone] Care Team Providers Care Gis Geographer Name Role Phone Hardik Oscar MD Primary Care Provider [phone] Reason for Visit * Reason Comments eRx-Medication Refill Encounter Details Date Type Department Care Team Description 05/02/2023 Refill Family Practice [facility] [address] [facility] [place] [address] Lior Merritt, DO [address] [place] [address] Encounter for long-term (current) use of medications* Allergies Active Allergy Reactions Severity Noted Date Comments Amoxicillin-Pot Clavulanate 07/24/20 07 Pruritic rash documented as of this encounter (statuses as of 05/03/2023) Medications Medication Sig Dispensed Refills Start Date [...] or chew. 30 Capsule 5 01/22/2022 Active Rosuvastatin Calcium 10 MG Oral Tablet [...] the morning. 30 Tablet 11 03/15/2023 Active metFORMIN HCl 1000 MG Oral Tablet (Glucophage) TAKE 1 TABLET BY MOUTH TWO TIMES DAILY WITH MORNING AND EVENING MEAL 180 Tablet 1 05/03/2023 Active metFORMIN HCl 1000 MG Oral Tablet (Glucophage) TAKE 1 TABLET BY MOUTH TWO TIMES DAILY WITH MORNING AND EVENING MEAL 180 Tablet 3 04/17/2022 3 Discontinued Hospital, Clinic, or Other Facility [...] as of this encounter (statuses as of 05/03/2023) Active Problems Problem Noted Date AAA (abdominal [...] as of this encounter (statuses as of 05/03/2023) Resolved Problems Problem Noted Date Resolved Date Hypertensive kidney disease with chronic kidney disease stage III 04/21/2019 06/09/2020 Overview: Per CKD protocol Type 2 diabetes mellitus wit h stage 3 chronic kidney disease, with long-term current use of insulin 02/16/2015 05 021 Overview: Per CKD protocol Kidney disease, [...] as of this encounter (statuses as of 05/03/2023) Immunizations Name Administration Dates Next Due COVID-19 [...] encounter Miscellaneous Notes * Telephone Encounter - Xiomyviri Pinto, [facility] - 05/03/2023 1:31 PM EDTSigned Prescriptions: Disp Refills metFORMIN HCl 1000 MG Oral Tablet (Glucoph*180 Ta*1 Sig: TAKE 1 TABLET BY MOUTH TWO TIMES DAILY WITH MORNING AND EVENING MEALAuthorizing Provider: Tri MERRITT User: [email or web address] PINTO documented in this encounter Plan of Treatment Upcoming Encounters Date Type Specialty Care Team Description 06/07/2023 Office Visit Pharmacy [facility] [address] [place] [id number] 06/18/2023 Office Visit Ophthalmology Hector Wise DO [address] [place] [address] Scheduled Orders Name Type Priority Associated Diagnoses Orde r Schedule VITAMIN B12 Lab Routine Encounter for long-term (current) use of medications Expected: 05/10/2023 (Approximate), Expires: 05/03/2024 Health Maintenance Due Date Last Done Comments DISCUSS TOBACCO CESSATION (REFER TO SMARTSET #9188) 1955 DXA Scan 1953 DTaP,Tdap,and Td Vaccines (1 - Tdap) 1972 Cologuard 1998 Fecal Occult Blood Test 1998 Sigmoidoscopy 1998 Zoster Vaccines (1 of 2) 2003 Pneumococcal Vaccine: 65+ Years (2 - PCV) 03/14/2007 03/14/2006 Colonoscopy 12/01/2019 11/30/2009 Colorectal Cancer Screening 12/01/2019 CKD PHOS USE SMARTSET [id number] 10/03/2021 03/0 02/2021, 10/25/2018, 12/07/2016, Additional history exists Diabetic Foot Exam 10/03/2021 10/03/2020, 1 , 07/31/2018, Additional history exists B-12 03/06/2022 03/06/2021, 10/25/2018 COVID-19 Vaccine (3 - 2022- season) 2023 11/01/2020, 10/11/2020 Influenza Vaccine (FLU shot) (#1) 2023 GFR 06/20/2023 12/18/2022, 12/28, 01/12/2022, Additional history exists HbA1c 06/20/2023 12/18/2022, 05/29, 01/19/2022, Additional history exists Albumin/Creatinine Ratio 12/15/2023 023, 09/15/2021, 05/05/2019, Additional history exists Depression Screening 12/15/2023 12/14/2022 CKD HGB USE SMARTSET 61155 12/19/202312/18, 12/18/2022, 01/12/2022, Additional history exists DIABETES-EYE EXAM 02/13/2024 02/12/2023, , 09/12/2021, Additional history exists Lipid Panel 12/19/2027 12/18/2022, 08/0 03/2021, 01/15/2020, Additional history exists LUNG CANCER SCREENING - USE SMARTSET 46914 Completed 02/18/2020, 10/31/2018 GARDASIL-HPV IMMUNIZATION SERIES Aged [...] this encounter Visit Diagnoses Diagnosis Encounter for long-term (current) use of medications- Primary Encounter for long-term (current) use of other medications documented in this encounter Care Teams Gis Geographer Relationship Specialty Start Date End Date Hardik Oscar MD [address] [place] [address] PCP - General Family Medicine 04/23/23 documented as of this encounter
--- OUTSIDE RECORDS SUMMARY | 2023-06-16 09:07 | External Medical Summary | Summary of Care ---
Author Name Unknown Organization [facility] Address [address] [facility] [address] Phone [phone] Care Team Providers Care Community Fundraiser Name Role Phone Lior Merritt DO Primary Care Provider Reason for Visit * Reason Comments Dosage Adjustment In Person (Anticoag Cl inic) Diabetes Follow-Up Encounter Details Date Type Department Care Team Description 03/15/2023 Office Visit Pharmacy, [facility] [address] [facility] [place] [address] [facility] [address] [facility] [place] [address] Type 2 diabetes mellitus with hemoglobin A1c goal of less than 7.0% ([facility])* Allergies Active Allergy Reactions Severity Noted Date Comments Amoxicillin-Pot Clavulanate 07/24/20 07 Pruritic rash documented as of this encounter (statuses as of 03/15/2023) Medications Medication Sig Dispensed Refills Start Date [...] 02/01/2023 Active Lisinopril 2.5 MG Oral Tablet (Prinivil)Indications :HTN, goal below 130/80 Take 1 tablet by mouth once daily 90 Tablet 3 03/14/2023 Active Pioglitazone HCl 15 MG Oral Tablet (Actos) Take 1 Tablet by mouth in the morning. 30 Tablet 11 03/15/2023 Active Hospital, Clinic, or Other Facility Administered [...] as of this encounter (statuses as of 03/15/2023) Active Problems Problem Noted Date AAA (abdominal [...] as of this encounter (statuses as of 03/15/2023) Resolved Problems Problem Noted Date Resolved Date [...] as of this encounter (statuses as of 03/15/2023) Immunizations Name Administration Dates Next Due COVID-19 mRNA, LNP-s, No Pre serve, 2-Dose Series (RubyRide) 11/01/2020,10/11/2020 Pneumococcal Polysaccharide PPV23 (Pneumovax) documented as [...] as of this encounter Progress Notes * Radhika Marina, [facility] - 03/15/2023 1:52 PM EDT Medication Therapy Disease Management [facility] - Diabetes Management Progress Note Rj Stern, identified by name and date of , is a 67 year old male being seen for diabetes management/education. Patient presents for return diabetic visit. DIABETES: Current diabetic medications: Metformin 1000 mg BID with morning and evening meals Novolin 70/30 18 units with breakfast and 15 units supper Serum creatinine: 1.3 mg/dL (H) 12/18/22 0936 Estimated creatinine clearance: 60.6 mL/min (A) Medication Injection Site: Abdomen Lifestyle: Diet: unchanged Glucose Review/SMBG: Readings obtained from patient documented BG logbook Hypoglycemia: Does your blood sugar go below 70 mg/dL? No Hyperglycemia symptoms present: none Recent Labs Units 12/18/22 0936 06/15/22 0944 01/19/22 1520 HEMOGLOBIN A1C - [facility] % 8.4* 7.3* 7.8* Recent Labs Units 12/18/22 0936 01/19/22 1520 01/12/22 0000 ESTIMATED GLOMERULAR FILTRATION RATE - [facility] mL/min 62 81 -- EGFR-OUTSIDE LAB ML/MIN -- -- >60 CREATININE - [facility] mg/dL 1.3* 1.0 -- CREATININE-OUTSIDE LAB MG/DL -- -- 0.95 HYPERTENSION: Patient on ACEi/ARB: yes BP Readings from Last 3 Encounters: 12/14/22 138/70 06/12/22 156/78 04/18/22 181/109 Blood pressure at goal: yes HYPERLIPIDEMIA: Patient is taking moderate or high intensity statin: yes HEALTH MAINTENANCE REVIEW: Health Maintenance Due Topic Date Due DXA Scan Never done DISCUSS TOBACCO CESSATION (REFER TO SMARTSET #5473) Never done DTaP,Tdap,and Td Vaccines (1 - Tdap) Never done Zoster Vaccines (1 of 2) Never done Pneumococcal Vaccine: 65+ Years (2 - PCV) 03/14/2007 Colorectal Cancer Screening 12/01/2019 COVID-19 Vaccine (3 - Pfizer series) 12/27/2020 DIABETES-FOOT EXAM 10/03/2021 CKD PHOS USE SMARTSET 37070 10/03/2021 B-12 03/06/2022 ASSESSMENT & PLAN: ICD-10-CM 1. Type 2 diabetes mellitus with hemoglobin A1c goal of less than 7.0% (HCC) E11.9 BG Readings - Blood sugars uncontrolled. BG values slightly elevated. Medications - Reviewed current regimen, patient is adherent to regimen. Recommending to add actos. Discussed moa and ae with patient, he is agreeable. Diet, Exercise, Lifestyle - No significant lifestyle changes since last visit. Discussed with patient. Patient is agreeable to SMBG 1 time(s) daily. Patient aware to contact clinic if any hypoglycemia before next visit. MEDICATION CHANGES: yes, see below; preferred pharmacy: [facility] Diabetic Medications: Metformin 1000 mg BID with morning and evening meals Novolin 70/30 18 units with breakfast and 15 units supper START: Actos 15 mg daily Serum creatinine: 1.3 mg/dL (H) 12/18/22 0936 Estimated creatinine clearance: 60.6 mL/min (A) HEALTH MAINTENANCE INTERVENTIONS: Labs: Up to Date Immunizations: Up to Date Foot Exam: Up to Date Eye Exam: Up to Date Annual Wellness Visit: Up to Date FOLLOW UP: Return to clinic in 12 weeks 06/07/2023 Radhika Marina RPh Clinical Pharmacist - Wastewater Project Engineer Medication Therapy Management Clinic 03/15/2023, 1:52 PM documented in this encounter Plan of Treatment Upcoming Encounters Date Type Specialty Care Team Description 04/23/2023 Office Visit Ophthalmology Hector Wise, [address] [place] [address] 06/07/2023 Office Visit Pharmacy [facility] [address] [place] [address] 06/24/2023 Office Visit Family Medicine Lior Merritt DO [address] [place] [address] Health Maintenance Due Date Last Done Comments DISCUSS TOBACCO CESSATION (REFER TO SMARTSET #2013) 1955 DXA Scan 1955 DTaP,Tdap,and Td Vaccines (1 - Tdap) 1972 Cologuard 1998 Fecal Occult Blood Test 1998 Sigmoidoscopy 1998 Zoster Vaccines (1 of 2) 2003 Pneumococcal Vaccine: 65+ Years (2 - PCV) 03/14/2007 03/14/2006 Colonoscopy 12/01/2019 11/30/2009 Colorectal Cancer Screening 12/01/2019 COVID-19 Vaccine (3 - Pfizer series) 12/27/2020 11/01/2020, 10/11/2020 CKD PHOS USE SMARTSET 41489 10/03/2021 03/0 02/2021, 10/25/2018, 12/07/2016, Additional history [...] Over 12/15/2023 12/14/2022 CKD HGB USE SMARTSET 13195 12/19/202312/18, 12/18/2022, 01/12/2022, Additional history exists DIABETES-EYE EXAM 02/13/2024 02/12/2023, , 09/12/2021, Additional history exists Lipid Panel 12/19/2027 12/18/2022, 08/0 03/2021, 01/15/2020, Additional history exists LUNG CANCER SCREENING - USE SMARTSET 92282 Completed 02/18/2020, 10/31/2018 GARDASIL-HPV IMMUNIZATION SERIES Aged [...] as of this encounter Visit Diagnoses Diagnosis Type 2 diabetes mellitus with hemoglobin A1c goal of less than 7.0% (HCC)- Primary documented in this encounter Care Teams Community Fundraiser Relationship Specialty Start Date End Date Lior Merritt DO [address] [place] [address] PCP - General Family Medicine 10/03/20 documented as of this encounter
--- OUTSIDE RECORDS SUMMARY | 2023-06-16 09:07 | External Medical Summary | Summary of Care ---
Author Name Unknown Organization [facility] Address [address] [place] [address] Phone [phone] Care Team Providers Care Broadband Engineer Name Role Phone Hardik Oscar MD Primary Care Provider [phone] Reason for Visit * Reason Comments Follow Up 8-10 week f/u; pt andrade s no complaints since GLYNN * Precert (Within 10 days (routine)) - Authorized Specialty Diagnoses / Procedures Referred By Carlos Alberto benitez Referred To Contact Ophthalmology Diagnoses Central retinal vein occlusion, left eye, with macular edema Procedures AFLIBERCEPT IO SOLN, PER 1MG, INJ OR INTRAVITREAL NJX PHARMACOLOGIC AGT SPX Hector Wise DO [address] [place] [address] Referral ID Status Reason Start Date Expiration Date V isits Requested Visits Authorized [id number] Authorized Precert 10/26/2020 07/28/2099 99 99 Encounter Details Date Type Department Care Team Description 04/23/2023 Office Visit Ophthalmology, [facility] [address] [place] [address] Hector Wise DO [address] [place] [address] Central retinal vein occlusion with macular edema [...] - 04/23/2023 11:45 AM EDT [facility] [place] Nursing [...] Hector Wise DO Eylea 2mg lot # [id number] Exp. Date: 08/29/23 * JORDIN Hankins - [...] [facility] [address] [place] [address] Scheduled Orders Name Type Priority Associated Diagnoses Orde r Schedule RETINA SCAN DIAGNOSTIC IMAGE, POSTERIOR Procedures Routine Central retinal vein occlusion with macular edema of left eye Ordered: 04/23/2023 Health Maintenance Due Date Last Done Comments DISCUSS TOBACCO CESSATION (REFER TO SMARTSET #4142) 1955 DXA Scan 1955 DTaP,Tdap,and Td Vaccines (1 - Tdap) 1972 Cologuard 1998 Fecal Occult Blood Test 1998 Sigmoidoscopy 1998 Zoster Vaccines (1 of 2) 2003 Pneumococcal Vaccine: 65+ Years (2 - PCV) 03/14/2007 03/14/2006 Colonoscopy 12/01/2019 11/30/2009 Colorectal Cancer Screening 12/01/2019 COVID-19 Vaccine (3 - Pfizer series) 12/27/2020 11/01/2020, 10/11/2020 CKD PHOS USE SMARTSET [id number] 10/03/2021 03/0 02/2021, 10/25/2018, 12/07/2016, Additional history exists Diabetic Foot Exam 10/03/2021 10/03/2020, 1 , 07/31/2018, Additional history exists B-12 03/06/2022 03/06/2021, 10/25/2018 Influenza Vaccine (FLU shot) (#1) 2023 GFR 06/20/2023 12/18/2022, 12/28, 01/12/2022, Additional history exists HbA1c 06/20/2023 12/18/2022, 05/29, 01/19/2022, Additional history exists Albumin/Creatinine Ratio 12/15/2023 023, 09/15/2021, 05/05/2019, Additional history exists Depression Screening 12/15/2023 12/14/2022 CKD HGB USE SMARTSET 26068 12/19/202312/18, 12/18/2022, 01/12/2022, Additional history exists DIABETES-EYE EXAM 02/13/2024 02/12/2023, , 09/12/2021, Additional history exists Lipid Panel 12/19/2027 12/18/2022, 08/0 03/2021, 01/15/2020, Additional history exists LUNG CANCER SCREENING - USE SMARTSET 61296 Completed 02/18/2020, 10/31/2018 GARDASIL-HPV IMMUNIZATION SERIES Aged [...] Left documented in this encounter Care Teams Broadband Engineer Relationship Specialty Start Date End Date Hardik Oscar MD [address] [place] [address] PCP - General Family Medicine 04/23/23 documented as of this encounter
--- OUTSIDE RECORDS SUMMARY | 2023-06-16 09:07 | External Medical Summary | Summary of Care ---
Author Name Unknown Organization [facility] Address [address] [address] Phone [phone] Care Team Providers Care Toll Line Repairer Name Role Phone Lior Merritt DO Primary Care Provider Reason for Visit * Reason Onset Date Comments Advice 03/26/2023 Encounter Details Date Type Department Care Team Description 03/26/2023 Telephone Family Practice [facility] [address] [place] [address] Liro Merritt DO [address] [place] [address] Advice Allergies Active Allergy Reactions Severity Noted Date Comments Amoxicillin-Pot Clavulanate 07/24/20 07 Pruritic rash documented as of this encounter (statuses as of 03/26/2023) Medications Medication Sig Dispensed Refills Start Date [...] hemoglobin A1c goal of less than 7.0% ([facility]) Inject under the skin 2 times a [...] as of this encounter (statuses as of 03/26/2023) Active Problems Problem Noted Date AAA (abdominal [...] as of this encounter (statuses as of 03/26/2023) Resolved Problems Problem Noted Date Resolved Date [...] as of this encounter (statuses as of 03/26/2023) Immunizations Name Administration Dates Next Due COVID-19 [...] encounter Miscellaneous Notes * Telephone Encounter - Toña SVITLANA Duke - 03/26/2023 8:56 AM EDT Patient wanted to make sure that he was to be taking Rosuvastatin and not Atorvastatin Reviewed chart and TE from 12/19 that advised he was to start taking Rosuvastatin Atorvastatin was discontinued previously Patient conveyed verbal understanding Reason for Call: Advice Contact: Telephone Call Contact Type: Medication Total Time including non face to face (minutes): 5 * Telephone Encounter - MEAGAN Fuentes - 03/26/2023 8:50 AM EDT Reason for patient's call: requesting to speak to nurse about medication Caller was transferred to Toña at the nurse line. documented in this encounter Plan of Treatment Upcoming Encounters Date Type Specialty Care Team Description 04/23/2023 Office Visit Ophthalmology Hector Wise, DO [address] [place] [address] 06/07/2023 Office Visit Pharmacy [facility] [place] [address] [place] [address] 06/24/2023 Office Visit Family Medicine Lior Merritt DO [address] [place] [address] Health Maintenance Due Date Last Done Comments DISCUSS TOBACCO CESSATION (REFER TO SMARTSET #3291) 1953 DXA Scan 1953 DTaP,Tdap,and Td Vaccines (1 - Tdap) 1972 Cologuard 1998 Fecal Occult Blood Test 1998 Sigmoidoscopy 1998 Zoster Vaccines (1 of 2) 2003 Pneumococcal Vaccine: 65+ Years (2 - PCV) 03/14/2007 03/14/2006 Colonoscopy 12/01/2019 11/30/2009 Colorectal Cancer Screening 12/01/2019 COVID-19 Vaccine (3 - Pfizer series) 12/27/2020 11/01/2020, 10/11/2020 CKD PHOS USE SMARTSET 15116 10/03/2021 03/0 02/2021, 10/25/2018, 12/07/2016, Additional history [...] Over 12/15/2023 12/14/2022 CKD HGB USE SMARTSET 05150 12/19/202312/18, 12/18/2022, 01/12/2022, Additional history exists DIABETES-EYE EXAM 02/13/2024 02/12/2023, , 09/12/2021, Additional history exists Lipid Panel 12/19/2027 12/18/2022, 08/0 03/2021, 01/15/2020, Additional history exists LUNG CANCER SCREENING - USE SMARTSET 51431 Completed 02/18/2020, 10/31/2018 GARDASIL-HPV IMMUNIZATION SERIES Aged [...] Not on filedocumented as of this encounter Care Teams Toll Line Repairer Relationship Specialty Start Date End Date Lior Merritt DO [address] [place] [address] PCP - General Family Medicine 10/03/20 documented as of this encounter
--- OUTSIDE RECORDS SUMMARY | 2023-06-16 09:07 | External Medical Summary | Summary of Care ---
Author Name Unknown Organization [facility] Address [address] [place] [address] Phone [phone] Care Team Providers Care Costume Director Name Role Phone Hardik Oscar MD Primary Care Provider [phone] Reason for Visit * Reason Comments Dosage Adjustment In Person (Anticoag Cl inic) Diabetes Follow-Up Encounter Details Date Type Department Care Team (Late st Contact Info) Description 06/07/2023 1:00 PM EST Office Visit Pharmacy, [facility] [address] [place] [address] [facility] [address] [place] [address] Type 2 diabetes mellitus with hemoglobin A1c goal of less than 7.0% (HCC)*; Unsteadiness on feet Allergies Active Allergy Reactions Criticality Noted Date Comments Amoxicillin-Pot Clavulanate 07/24/20 07 Pruritic rash documented as of this encounter (statuses as of 06/07/2023) Medications Medication Sig Dispensed Refills Start Date [...] once daily 90 Tablet 3 03/14/2023 Active metFORMIN HCl 1000 MG Oral Tablet (Glucophage) TAKE 1 TABLET BY MOUTH TWO TIMES DAILY WITH MORNING AND EVENING MEAL 180 Tablet 1 05/03/2023 Active Pioglitazone HCl 15 MG Oral Tablet (Actos) Take 1 Tablet by mouth in the morning. 90 Tablet 3 06/07/2023 Active Pioglitazone HCl 15 MG Oral Tablet (Actos) Take 1 Tablet by mouth in the morning. 30 Tablet 11 03/15/2023 3 Discontinue d(Refill) Hospital, Clinic, or Other Facility Administered Medication [...] as of this encounter (statuses as of 06/07/2023) Active Problems Problem Noted Date Diagnosed Date AAA (abdominal aortic aneurysm) 12/16/2020 Overview: 3.9 cm AAA noted on MRI of Spine 11/04/20 Chronic kidney disease, stage 3a 12/06/2020 Overview: Per CKD protocol Type 2 diabetes mellitus wit h stage 3a chronic kidney disease, with long-term current use of insulin 12/06/2020 Overview: Per CKD protocol Hypertensive kidney disease with stage 3a chronic kidney disease 06/06/2020 Overview: Per CKD protocol Pancreatic divisum 07/31/2018 Overview: Noted on MRCP HTN, goal below 130/80 10/03/2015 Overview: Per HTN Protocol #27. Tobacco use disorder 02/01/2010 Noise-induced hearing loss 02/01/2010 Diverticulosis of colon 11/30/2009 Dyslipidemia 07/07/2009 Overview: Per Lipid Taxonomy. Type 2 diabetes mellitus wit h hemoglobin A1c goal of less than 7.0% 05/26/2009 Overview: Per Diabetes Taxonomy. ICD-10 update of inactive term Deviated nasal septum 05/14/2008 Chronic rhinitis 05/14/2008 documented as of this encounter (statuses as of 06/07/2023) Resolved Problems Problem Noted Date Diagnosed Date Resolved Date Hypertensive kidney disease with chronic kidney disease stage III 04/21/2019 06/09/2020 Overview: Per CKD protocol Type 2 diabetes mellitus wit h stage 3 chronic kidney disease, with long-term current use of insulin 02/16/2015 12/08/2020 Overview: Per CKD protocol Kidney disease, chronic, sta ge III (GFR 30-59 ml/min) 10/11/2014 11/05/2018 Overview: Per CKD protocol #1 HTN, GOAL BELOW 140/80 03/17/201211/02 Overview: Per HTN Protocol #27. HTN, GOAL BELOW 130/80 08/24/200903/20 Overview: Per HTN Taxonomy. FOLLOWING SURGERY, ENDOSCOPIC SINUS SURGERY 06/07/2008 07/31/2018 History of tobacco use 06/07/200802/01 CHR ETHMOIDAL SINUSITIS,LEFT 05/14/2008 07/31/2018 CHR MAXILLARY SINUSITIS,LEFT 05/14/2008 07/31/2018 HYPERTRPH NASAL TURBINAT,LEFT MIDDLE 05/14/2008 07/31/2018 HTN, goal below 140/90 03/08/200808/24 Overview: Per HTN Taxonomy. Type 2 diabetes mellitus wit h hemoglobin A1c goal of less than 7.0% 10/09/2005 05/26/2009 Overview: Per Diabetes Taxonomy. ICD-10 update of inactive term Dyslipidemia, goal to be determined 10/09/2005 07/07/2009 Overview: Per Lipid Taxonomy. documented as of this encounter (statuses as of 06/07/2023) Immunizations Name Administration Dates Next Due COVID-19 [...] oz pur e alcohol) pt in NA PHQ-2 Answer Date Recorded PHQ Adult Total Score 0 12/14/2022 Hunger Vital Sign Answer Date Recorded Within the past 12 months, y ou worried that your food would run out before you got the money to buy more. Never true 12/15/19 23 Within the past 12 months, t he food you bought just didn't last and you didn't have money to get more. Never true 12/14/2022 Sex and Gender Information Value Date Recorded Sex Assigned at Male 10/28/2018 9:44 AM EDT Gender Identity Male 10/28/2018 9:44 AM EDT Sexual Orientation Straight 10/28/2018 9: 44 AM EDT Job Start Date Occupation Industry Not on file Not on file Not on file documented as of this encounter Progress Notes * Radhika Marina, [facility] - 06/07/2023 1:01 PM EST Medication Therapy Disease Management [facility] - Diabetes Management Progress Note Rj Stern, identified by name and date of , is a 68 year old male being seen for diabetes management/education. Patient presents for return diabetic visit. DIABETES: Current diabetic medications: Metformin 1000 mg BID with morning and evening meals Novolin 70/30 18 units with breakfast and 15 units supper START: Actos 15 mg daily Medication Injection Site: Abdomen Lifestyle: Diet: unchanged Glucose Review/SMBG: Readings obtained from patient documented BG logbook Pre am Post am Pre Lunch Post Lunch Pre pm Post pm HS 3am 69 72 144 184 78 147 152 70 173 148 181 186 191 164 154 160 160 186 167 170 171 166 84 104 Average 140 #DIV/0! 133 #DIV/0! 153 #DIV/0! 148 #DIV/0! Hi 191 0 164 0 186 0 186 0 Lo 69 0 72 0 [address]25 0 147.5 0 160.4 0 156.2 0 Range 122 0 92 0 102 0 116 0 Hypoglycemia: Does your blood sugar go below [...] done DISCUSS TOBACCO CESSATION (REFER TO SMARTSET #7193) Never done DTaP,Tdap,and Td Vaccines (1 - Tdap) Never done Zoster Vaccines (1 of 2) Never done Pneumococcal Vaccine: 65+ Years (2 - PCV) 03/14/2007 Hepatitis B (1 of 3 - Risk 3-dose series) Never done Colorectal Cancer Screening 12/01/2019 Diabetic Foot Exam 10/03/2021 CKD PHOS USE SMARTSET 14053 10/03/2021 B-12 03/06/2022 Influenza Vaccine (FLU shot) (1) Never done COVID-19 Vaccine (3 - season) 2023 HbA1c 06/20/2023 ASSESSMENT & PLAN: ICD-10-CM 1. Type 2 diabetes mellitus with hemoglobin A1c goal of less than 7.0% (HCC) E11.9 2. Unsteadiness on feet R26.81 BG Readings - Blood sugars controlled. BG values much improved since addition of pioglitazone Medications - Reviewed current regimen, patient is adherent to regimen. Will continue current medications at this time. Diet, Exercise, Lifestyle - No significant lifestyle changes since last visit. Discussed with patient. Patient is agreeable to SMBG 1 time(s) daily. Patient aware to contact clinic if any hypoglycemia before next visit. MEDICATION CHANGES: no change Diabetic Medications: Metformin 1000 mg BID with morning and evening meals Novolin 70/30 18 units with breakfast and 15 units supper Actos 15 mg daily HEALTH MAINTENANCE INTERVENTIONS: Labs: Ordered & Scheduled: HgA1c and Vitamin B12 Immunizations: declines Foot Exam: declines Eye Exam: Complete with next PCP visit on lucina Annual Wellness Visit: will discuss FOLLOW UP: Return to clinic in 12 weeks 09/06/2023 Radhika Marina RPh Clinical Pharmacist - Handy Worker Medication Therapy Management [facility] 06/07/2023, 1:01 PM documented in this encounter Plan of Treatment Upcoming Encounters Date Type Department Care Team (Late st Contact Info) Description 06/18/2023 11:45 AM EST Office Visit Ophthalmology, [facility] [address] [place] [address] Hector Wise, [address] [place] [address] 09/06/2023 1:00 PM EST Office Visit Pharmacy, [facility] [address] [place] [address] [facility] [address] [place] [address] [address] Scheduled Orders Name Type Priority Associated Diagnoses Orde r Schedule HEMOGLOBIN A1C Lab Routine Type 2 diabetes mellitus with hemoglobin A1c goal of less than 7.0% (HCC) Expected: 06/08/2023 (Approximate), Expires: 06/07/2024 VITAMIN B12 Lab Routine Type 2 diabetes mellitus with hemoglobin A1c goal of less than 7.0% (HCC) Unsteadiness on feet Expected: 06/08/2023 (Approximate), Expires: 06/07/2024 Health Maintenance Due Date Last Done Comments DISCUSS TOBACCO CESSATION (REFER TO SMARTSET #9815) 1953 DXA Scan 1953 DTaP,Tdap,and Td Vaccines (1 - Tdap) 1972 Cologuard 1998 Fecal Occult Blood Test 1998 Sigmoidoscopy 1998 Zoster Vaccines (1 of 2) 2003 Pneumococcal Vaccine: 65+ Years (2 - PCV) 03/14/2007 03/14/2006 Hepatitis B (1 of 3 - Risk 3-dose series) 2013 Colonoscopy 12/01/2019 11/30/2009 Colorectal Cancer Screening 12/01/2019 CKD PHOS USE SMARTSET 84880 10/03/2021 03/0 02/2021, 10/25/2018, 12/07/2016, Additional history exists Diabetic Foot Exam 10/03/2021 10/03/2020, 1 , 07/31/2018, Additional history exists B-12 03/06/2022 03/06/2021, 10/25/2018 COVID-19 Vaccine ( - season) 2023 11/01/2020, 10/11/2020 Influenza Vaccine (FLU shot) (#1) 2023 GFR 06/20/2023 12/18/2022, 06/2 10/2021, 01/12/2022, Additional history exists HbA1c 06/20/2023 12/18/2022, 05/29, 01/19/2022, Additional history exists Albumin/Creatinine Ratio 12/15/2023 023, 09/15/2021, 05/05/2019, Additional history exists Depression Screening 12/15/2023 12/14/2022 CKD HGB USE SMARTSET 14452 12/19/202312/18, 12/18/2022, 01/12/2022, Additional history exists Diabetic Eye Exam 02/13/2024 02/12/2023, , 10/27/2021, Additional history exists Lipid Panel 12/19/2027 12/18/2022, 0803/2021, 01/15/2020, Additional history exists LUNG CANCER SCREENING - USE SMARTSET 93180 Completed 02/18/2020, 10/31/2018 GARDASIL-HPV IMMUNIZATION SERIES Aged [...] goal of less than 7.0% (HCC)- Primary Unsteadiness on feet Abnormality of gait documented in this encounter Care Teams Costume Director Relationship Specialty Start Date End Date Hardik Oscar MD [address] [place] [address] PCP - General Family Medicine 04/23/23 documented as of this encounter
--- OUTSIDE RECORDS SUMMARY | 2023-06-16 09:07 | External Medical Summary | Summary of Care ---
Author Name Unknown Organization [facility] Address [address] [place] [address] Phone [phone] Care Team Providers Care Quality Control Microbiologist Name Role Phone Lior Merritt DO Primary Care Provider Reason for Visit * Reason Onset Date Comments STAIR AAA 02/13/2023 Encounter Details Date Type Department Care Team Description 02/13/2023 Telephone STAIR AAA [address] [place], [place] [id number] Program, Stair [address] [place] [address] STAIR AAA Allergies Active Allergy Reactions Severity Noted Date Comments Amoxicillin-Pot Clavulanate 07/24/20 07 Pruritic rash documented as of this encounter (statuses as of 02/13/2023) Medications Medication Sig Dispensed Refills Start Date [...] hemoglobin A1c goal of less than 7.0% ([facility]) Inject under the skin 2 times a [...] as of this encounter (statuses as of 02/13/2023) Active Problems Problem Noted Date AAA (abdominal [...] as of this encounter (statuses as of 02/13/2023) Resolved Problems Problem Noted Date Resolved Date [...] as of this encounter (statuses as of 02/13/2023) Immunizations Name Administration Dates Next Due COVID-19 [...] encounter Miscellaneous Notes * Telephone Encounter - Delores Mario LPN - 02/13/2023 8:49 AM EDT AAA - Clinical Summary Name: Rj Stern Age: [age] year old AAA Review: Follow-up Patient Identified by: Lost to Follow-up Report Imaging Interpretation: Duplex Type of Result: AAA >= 4 cm AAA Care Plan Recommendation: Aortic Duplex - details below Details: In 11 months Next steps: No action needed at this time. Patient had telemed visit with vascular earlier this month. Patient is to follow up 12/[address] Chappell at [facility] with testing prior. Delores Mario LPN Coordinator STAIR (System to Track Abnormalities of Importance Reliably) [facility] AORTIC DUPLEX EVAL-COMPLETE 12/18/2022 Narrative VASCULAR LAB RESULTS DATE OF EXAM: 12/18/22 PRESENTING CONDITIONS: AAA screen This is an interpretation of an exam performed at [facility]. Immediately before proceeding with the vascular lab procedure reported below, the identity of the patient, the correct exam and the correct procedural site were verified. Nevarez scale, color flow and spectral doppler were performed for this examination. PHYSICIAN REPORT: Abdominal Aorta Duplex Examination. Spectral Doppler demonstrates evidence of normal waveforms of the abdominal aorta. Peak systolic velocity measurements of the aorta are 64.0 centimeters per second. The maximum diameter of the proximal abdominal aorta measures 2.0 centimeters by 2.0 centimeters. The maximum diameter of the mid abdominal aorta measures 1.8 centimeters by 1.8 centimeters. The maximum diameter of the distal abdominal aorta measures 4.1 centimeters by 4.1 centimeters. The maximum diameter of the proximal right common iliac artery measures 1.1 centimeters by 1.1 centimeters. The maximum diameter of the proximal left common iliac artery measures 1.7 centimeters by 1.7 centimeters. Impression : There is evidence of a 4.1 cm x 4.1 cm abdominal aortic aneurysm. Color Doppler imaging demonstrates flow consistent with a patent lumen at and distal to the aortic aneurysm. documented in this encounter Plan of Treatment Upcoming Encounters Date Type Specialty Care Team Description 03/15/2023 Office Visit Pharmacy [facility] [place] [address] [place] [address] 04/23/2023 Office Visit Ophthalmology Hector Wise DO [address] [place] [address] 06/24/2023 Office Visit Family Medicine Lior Merritt, DO [address] [place] [address] Health Maintenance Due Date Last Done Comments DISCUSS TOBACCO CESSATION (REFER TO SMARTSET #7105) 1953 DXA Scan 1953 DTaP,Tdap,and Td Vaccines (1 - Tdap) 1972 Cologuard 1998 Fecal Occult Blood Test 1998 Sigmoidoscopy 1998 Zoster Vaccines (1 of 2) 2003 Pneumococcal Vaccine: 65+ Years (2 - PCV) 03/14/2007 03/14/2006 Colonoscopy 12/01/2019 11/30/2009 Colorectal Cancer Screening 12/01/2019 COVID-19 Vaccine (3 - Pfizer series) 12/27/2020 11/01/2020, 10/11/2020 CKD PHOS USE SMARTSET 69413 10/03/2021 03/0 02/2021, 10/25/2018, 12/07/2016, Additional history [...] , 12/28/2020, 10/29/2018 CKD HGB USE SMARTSET 11404 12/19/202312/18, 12/18/2022, 01/12/2022, Additional history exists DIABETES-EYE EXAM 02/13/2024 02/12/2023, , 09/12/2021, Additional history exists Lipid Panel 12/19/2027 12/18/2022, 08/0 03/2021, 01/15/2020, Additional history exists LUNG CANCER SCREENING - USE SMARTSET 61604 Completed 02/18/2020, 10/31/2018 ABDOMINAL AORTIC ANEURYSM (AAA) [...] filedocumented as of this encounter Care Teams Quality Control Microbiologist Relationship Specialty Start Date End Date Lior Merritt DO [address] [place] [address] PCP - General Family Medicine 10/03/20 documented as of this encounter
--- OUTSIDE RECORDS SUMMARY | 2023-06-16 09:07 | External Medical Summary | Summary of Care ---
Author Name Unknown Organization [facility] Address [address] [facility] [place] [address] Phone [phone] Care Team Providers Care Inspection Machine Tender Name Role Phone Lior Merritt DO Primary Care Provider Reason for Visit * Reason Comments eRx-Medication Refill Encounter Details Date Type Department Care Team Description 02/01/2023 Refill Family Practice [facility] [address] [place] [address] Lior Merritt DO [address] [place] [address] HTN, goal below 140/90 Allergies Active Allergy Reactions Severity Noted Date Comments Amoxicillin-Pot Clavulanate 07/24/20 07 Pruritic rash documented as of this encounter (statuses as of 02/01/2023) Medications Medication Sig Dispensed Refills Start Date [...] goal of less than 7.0% ([facility]) Inject under the skin 2 times a [...] 01/22/2022 Active Lisinopril 2.5 MG Oral Tablet (Prinivil)Indicati [...] EVERY DAY 90 Tablet 1 02/01/2023 Active amLODIPine Besylate 5 MG Oral Tablet (Norvasc)Indicatio ns:HTN, goal below 140/90 TAKE 1 TABLET BY MOUTH EVERY DAY 90 Tablet 1 08/01/2022 3 Discontinued Hospital, Clinic, or Other Facility [...] as of this encounter (statuses as of 02/01/2023) Active Problems Problem Noted Date AAA (abdominal aortic aneurysm) 12/17/19 Overview: 3.9 cm AAA noted on MRI of Spine 11/04/20 Chronic kidney disease, stage 3a 05/11/2 021 Overview: Per CKD protocol Type 2 [...] as of this encounter (statuses as of 02/01/2023) Resolved Problems Problem Noted Date Resolved Date [...] as of this encounter (statuses as of 02/01/2023) Immunizations Name Administration Dates Next Due COVID-19 mRNA, LNP-s, No Pre serve, 2-Dose Series ([employer]) 11/01/2020,10/11/2020 Pneumococcal Polysaccharide PPV23 (Pneumovax) documented as [...] encounter Miscellaneous Notes * Telephone Encounter - Darlene Sandoval [facility] - 02/01/2023 10:23 PM EDTSigned Prescriptions: Disp Refills amLODIPine Besylate 5 MG Oral Tablet (Norv*90 Tab*1 Sig: TAKE 1 TABLET BY MOUTH EVERY DAYAuthorizing Provider: Tri MERRITT User: DARLENE SANDOVAL---- Electronically signed by Darlene Sandoval [facility] at 02/01/2023 10:23 PM EDT documented in this encounter Plan of Treatment Upcoming Encounters Date Type Specialty Care Team Description 02/12/2023 Office Visit Ophthalmology Hector Wise DO [address] [place] [address] 03/15/2023 Office Visit Pharmacy [facility] [place] [address] [place] [address] 06/24/2023 Office Visit Family Medicine Lior Merritt DO [address] [place] [address] Health Maintenance Due Date Last Done Comments DISCUSS TOBACCO CESSATION (REFER TO SMARTSET #9262) 1955 DXA Scan 1953 DTaP,Tdap,and Td Vaccines (1 - Tdap) 1972 Cologuard 1998 Fecal Occult Blood Test 1998 Sigmoidoscopy 1998 Zoster Vaccines (1 of 2) 2003 Pneumococcal Vaccine: 65+ Years (2 - PCV) 03/14/2007 03/14/2006 Colonoscopy 12/01/2019 11/30/2009 Colorectal Cancer Screening 12/01/2019 COVID-19 Vaccine (3 - Pfizer series) 12/27/2020 11/01/2020, 10/11/2020 CKD PHOS USE SMARTSET 33033 10/03/2021 03/0 02/2021, 10/25/2018, 12/07/2016, Additional history exists DIABETES-FOOT EXAM 10/03/2021 10/03/2020, 1 , 07/31/2018, Additional history exists B-12 03/06/2022 03/06/2021, 10/25/2018 DIABETES-EYE EXAM 10/27/2022 10/27/2021, , 08/01/2021, Additional history exists Influenza Vaccine (FLU shot) (#1) 2023 GFR 06/20/2023 12/18/2022, 12/28, 01/12/2022, Additional history exists HbA1c 06/20/2023 12/18/2022, 05/29, 01/19/2022, Additional history exists Albumin/Creatinine Ratio 12/15/2023 023, 09/15/2021, 05/05/2019, Additional history exists Depression Screening, Annual for Pts 12 and Over 12/15/2023 12/14/2022 AAA MONITORING; CT OR US YEARLY 12/19/2023 12/18/2022, 12/28/2020, 10/29/2018 AAA ULTRASOUND YEARLY 12/19/2023 12/18/2022 , 12/28/2020, 10/29/2018 CKD HGB USE SMARTSET 58381 12/19/202312/18, 12/18/2022, 01/12/2022, Additional history exists Lipid Panel 12/19/2027 12/18/2022, 08/0 03/2021, 01/15/2020, Additional history exists LUNG CANCER SCREENING - USE SMARTSET 71027 Completed 02/18/2020, 10/31/2018 ABDOMINAL AORTIC ANEURYSM (AAA) [...] encounter Visit Diagnoses Diagnosis HTN, goal below 140/90 Unspecified essential hypertension documented in this encounter Care Teams Inspection Machine Tender Relationship Specialty Start Date End Date Lior Merritt DO [address] [place] [address] PCP - General Family Medicine 10/03/20 documented as of this encounter
[2023-06-16] MEDS: lisinopril 2.5 MG TAB PO SCH (09:08)
[2023-06-16] MEDS: ROSUVASTATIN CALCIUM 10 MG TAB PO SCH (09:08)
[2023-06-16] MEDS: ASPIRIN 81 MG ECTAB PO SCH (09:08)
--- OUTSIDE RECORDS SUMMARY | 2023-06-16 09:08 | External Medical Summary | Summary of Care ---
Author Name Unknown Organization [facility] Address [address] [address] Phone [phone] Care Team Providers Care Nuclear Power Reactor Operator Name Role Phone Lior Merritt DO Primary Care Provider Reason for Visit * Reason Onset Date Comments Advice 12/20/2022 Encounter Details Date Type Department Care Team Description 12/20/2022 Telephone Family Practice [facility] [address] [place] [address] Lior Merritt DO [address] [place] [address] Advice Allergies Active Allergy Reactions Severity Noted Date Comments Amoxicillin-Pot Clavulanate 07/24/20 07 Pruritic rash documented as of this encounter (statuses as of 12/21/2022) Medications Medication Sig Dispensed Refills Start Date [...] hemoglobin A1c goal of less than 7.0% ([facility]) Inject under the skin 2 times [...] EVENING MEAL 180 Tablet 3 04/17/2022 Active amLODIPine Besylate 5 MG Oral Tablet (Norvasc)Indications: HTN, goal below 140/90 TAKE 1 TABLET BY MOUTH EVERY DAY 90 Tablet 1 08/01/2022 Active Hospital, Clinic, or Other Facility Administered [...] as of this encounter (statuses as of 12/21/2022) Active Problems Problem Noted Date AAA (abdominal [...] as of this encounter (statuses as of 12/21/2022) Resolved Problems Problem Noted Date Resolved Date [...] as of this encounter (statuses as of 12/21/2022) Immunizations Name Administration Dates Next Due COVID-19 [...] encounter Miscellaneous Notes * Telephone Encounter - Genoveva Almaguer LPN - 12/21/2022 9:40 AM EDT Called the number provided by pt. Was told to go to website and download and print off application for assistane. * Telephone Encounter - Joelle White, cardroom manager - 12/20/2022 4:38 PM EDT Jardiance is $1700 with good rx Pt can not afford He has the number of special program- please call to set up program for pt Phone number [phone] Please advise Thank you for your assistance Joelle White [facility] Refill Call [facility] 12/20/2022,4:40 PM documented in this encounter Plan of Treatment Upcoming Encounters Date Type Specialty Care Team Description 02/12/2023 Office Visit Ophthalmology Hector Wise DO [address] [place] [address] 03/15/2023 Office Visit [facility]acy [facility] [address] [place] [address] 06/24/2023 Office Visit Family Medicine Lior Merritt DO [address] [place] [address] Health Maintenance Due Date Last Done Comments DISCUSS TOBACCO CESSATION (REFER TO SMARTSET #1128) 1953 DXA Scan 1953 DTaP,Tdap,and Td Vaccines (1 - Tdap) 1972 Cologuard 1998 Fecal Occult Blood Test 1998 Sigmoidoscopy 1998 Zoster Vaccines (1 of 2) 2003 Pneumococcal Vaccine: 65+ Years (2 - PCV) 03/14/2007 03/14/2006 Colonoscopy 12/01/2019 11/30/2009 Colorectal Cancer Screening 12/01/2019 COVID-19 Vaccine (3 - Booster for Pfizer series) 12/27/2020 11/01/2020, 10/11/2020 CKD PHOS USE SMARTSET 97276 10/03/2021 03/0 02/2021, 10/25/2018, 12/07/2016, Additional history exists DIABETES-FOOT EXAM 10/03/2021 10/03/2020, 1 , 07/31/2018, Additional history exists Yearly B-12 03/06/2022 03/06/2021, 10/25/2018 DIABETES-EYE EXAM 10/27/2022 10/27/2021, , 08/01/2021, Additional history exists Influenza Vaccine (FLU shot) (Season Ended) 2023 GFR 06/20/2023 12/18/2022, 12/28, 01/12/2022, Additional history exists HbA1c 06/20/2023 12/18/2022, 05/29, 01/19/2022, Additional history exists Albumin/Creatinine Ratio 12/15/2023 023, 09/15/2021, 05/05/2019, Additional history exists Depression Screening, Annual for Pts 12 and Over 12/15/2023 12/14/2022 AAA MONITORING; CT OR US YEARLY 12/19/2023 12/18/2022, 12/28/2020, 10/29/2018 AAA ULTRASOUND YEARLY 12/19/2023 12/18/2022 , 12/28/2020, 10/29/2018 CKD HGB USE SMARTSET 27885 12/19/202312/18, 12/18/2022, 01/12/2022, Additional history exists Lipid Panel 12/19/2027 12/18/2022, 08/0 03/2021, 01/15/2020, Additional history exists LUNG CANCER SCREENING - USE SMARTSET 45431 Completed 02/18/2020, 10/31/2018 ABDOMINAL AORTIC ANEURYSM (AAA) [...] filedocumented as of this encounter Care Teams Nuclear Power Reactor Operator Relationship Specialty Start Date End Date Lior Merritt DO [address] [place] [address] PCP - General Family Medicine 10/03/20 documented as of this encounter
--- OUTSIDE RECORDS SUMMARY | 2023-06-16 09:08 | External Medical Summary | Summary of Care ---
Author Name Unknown Organization [facility] Address [address] [facility] [address] Phone [phone] Care Team Providers Care Spinner Continuous Name Role Phone Lior Merritt DO Primary Care Provider Reason for Visit * Reason Onset Date Comments Health Maintenance 12/21/2022 Encounter Details Date Type Department Care Team Description 12/21/2022 Telephone Family Practice [facility] [address] [place] [address] Lior Merritt DO [address] [place] [address] Health Maintenance Allergies Active Allergy Reactions Severity Noted Date [...] A1c goal of less than 7.0% ([facility]) Inject under the skin 2 times a [...] EVERY DAY 90 Tablet 1 08/01/2022 Active Empagliflozin 10 MG Oral Tablet (Jardiance)Indication s:Type 2 diabetes mellitus with stage 3a chronic kidney disease, with long-term current use of insulin (HCC) Take 1 Tablet by mouth in the morning. 90 Tablet 3 12/20/2022 Active Rosuvastatin Calcium 10 MG Oral Tablet (Crestor)Indications: Dyslipidemia Take 1 Tablet by mouth in the morning. 90 Tablet 3 12/20/2022 Active Hospital, Clinic, or Other Facility Administered [...] mRNA, LNP-s, No Pre serve, 2-Dose Series (Cozi) 11/01/2020,10/11/2020 Pneumococcal Polysaccharide PPV23 (Pneumovax) documented as [...] encounter Miscellaneous Notes * Telephone Encounter - Aydee Turner LPN - 12/21/2022 9:39 AM EDT Care Gaps Comprehensive Care Outreach Last Office/Telemedicine Visit: 12/14/2022 (in office), Visit date not found (telemedicine) Next Office Visit: 06/24/2023 Hemoglobin AIC Results: Lab Results Component Value Date/Time HEMOGLOBIN A1C - [facility] 8.4 (H) 12/18/2022 09:36 AM HEMOGLOBIN A1C - [facility] 7.3 (H) 06/15/2022 09:44 AM HEMOGLOBIN A1C - [facility] 7.8 (H) 01/19/2022 03:20 PM HEMOGLOBIN A1C - [facility] 7.5 (H) 04/29/2019 09:45 AM HEMOGLOBIN A1C - [facility] 7.3 (H) 10/25/2018 08:32 AM HEMOGLOBIN A1C - [facility] 9.2 (H) 12/07/2016 10:36 AM Reviewed Health Maintenance below: Health Maintenance Topic Date Due DXA Scan Never done DISCUSS TOBACCO CESSATION (REFER TO SMARTSET #3295) Never done DTaP,Tdap,and Td Vaccines (1 - Tdap) Never done Zoster Vaccines (1 of 2) Never done Pneumococcal Vaccine: 65+ Years (2 - PCV) 03/14/2007 Colorectal Cancer Screening 12/01/2019 COVID-19 Vaccine (3 - Booster for Pfizer series) 12/27/2020 DIABETES-FOOT EXAM 10/03/2021 CKD PHOS USE SMARTSET 67930 10/03/2021 Yearly B-12 03/06/2022 DIABETES-EYE EXAM 10/27/2022 Influenza Vaccine (FLU shot) (Season Ended) 2023 HbA1c 06/20/2023 GFR 06/20/2023 dexa Colon Labs? Already ordered eye Care Gap Outreach Action Taken: Left message documented in this encounter Plan of Treatment Upcoming Encounters Date Type Specialty Care Team Description 02/12/2023 Office Visit Ophthalmology Hector Wise DO [address] [place] [address] 03/15/2023 Office Visit [facility]acy [facility] [address] [place] [address] 06/24/2023 Office Visit Family Medicine Lior Merritt DO [address] [place] [address] Health Maintenance Due Date Last Done Comments DISCUSS TOBACCO CESSATION (REFER TO SMARTSET #7802) 1953 DXA Scan 1953 DTaP,Tdap,and Td Vaccines (1 - Tdap) 1972 Cologuard 1998 Fecal Occult Blood Test 1998 Sigmoidoscopy 1998 Zoster Vaccines (1 of 2) 2003 Pneumococcal Vaccine: 65+ Years (2 - PCV) 03/14/2007 03/14/2006 Colonoscopy 12/01/2019 11/30/2009 Colorectal Cancer Screening 12/01/2019 COVID-19 Vaccine (3 - Booster for Pfizer series) 12/27/2020 11/01/2020, 10/11/2020 CKD PHOS USE SMARTSET 47061 10/03/202102/2021, 10/25/2018, 12/07/2016, Additional history exists DIABETES-FOOT EXAM [...] , 12/28/2020, 10/29/2018 CKD HGB USE SMARTSET 83155 12/19/202312/18, 12/18/2022, 01/12/2022, Additional history exists Lipid Panel 12/19/2027 12/18/2022, 08/0 03/2021, 01/15/2020, Additional history exists LUNG CANCER SCREENING - USE SMARTSET 71798 Completed 02/18/2020, 10/31/2018 ABDOMINAL AORTIC ANEURYSM (AAA) [...] filedocumented as of this encounter Care Teams Spinner Continuous Relationship Specialty Start Date End Date Lior Merritt DO [address] [place] [address] PCP - General Family Medicine 10/03/20 documented as of this encounter
--- OUTSIDE RECORDS SUMMARY | 2023-06-16 09:08 | External Medical Summary | Summary of Care ---
Author Name Unknown Organization [facility] Address [address] [place] [address] Phone [phone] Care Team Providers Care Building And Grounds Supervisor Name Role Phone Lior Merritt DO Primary Care Provider Encounter Details Date Type Department Care Team Description 12/25/2022 Orders Only Outcomes Research Department [address] [place] [address] Aura Marie CHRA My[employer] Research Other*[id number] Allergies Active Allergy Reactions Severity Noted Date Comments Amoxicillin-Pot Clavulanate 07/24/20 07 Pruritic rash documented as of this encounter (statuses as of 12/25/2022) Medications Medication Sig Dispensed Refills Start Date [...] hemoglobin A1c goal of less than 7.0% ([facility]) Inject under the skin 2 times [...] as of this encounter (statuses as of 12/25/2022) Active Problems Problem Noted Date AAA (abdominal [...] protocol Pancreatic divisum 07/31/2018 [facility], goal below 130/80 10/03/2015 Overview: Per [...] as of this encounter (statuses as of 12/25/2022) Resolved Problems Problem Noted Date Resolved Date [...] as of this encounter (statuses as of 12/25/2022) Immunizations Name Administration Dates Next Due COVID-19 [...] on file documented as of this encounter Plan of Treatment Upcoming Encounters Date Type Specialty Care Team Description 02/12/2023 Office Visit Ophthalmology Hector Wise DO [address] [place] [address] 03/15/2023 Office Visit [facility]acy [facility] [address] [place] [address] 06/24/2023 Office Visit Family Medicine Lior Merritt DO [address] [place] [address] Scheduled Orders Name Type Priority Associated Diagnoses Orde r Schedule MYCODE SUBSEQUENT ADULT Lab Routine [employer] Research Other*[id number] Every 6 Months for 2 Occurrences starting 12/25/2022 until 01/14/2024 Health Maintenance Due Date Last Done Comments DISCUSS TOBACCO CESSATION (REFER TO SMARTSET #8700) 1955 DXA Scan 1953 DTaP,Tdap,and Td Vaccines (1 - Tdap) 1972 Cologuard 1998 Fecal Occult Blood Test 1998 Sigmoidoscopy 1998 Zoster Vaccines (1 of 2) 2003 Pneumococcal Vaccine: 65+ Years (2 - PCV) 03/14/2007 03/14/2006 Colonoscopy 12/01/2019 11/30/2009 Colorectal Cancer Screening 12/01/2019 COVID-19 Vaccine (3 - Booster for Pfizer series) 12/27/2020 11/01/2020, 10/11/2020 CKD PHOS USE SMARTSET 91556 10/03/2021 03/0 02/2021, 10/25/2018, 12/07/2016, Additional history [...] , 12/28/2020, 10/29/2018 CKD HGB USE SMARTSET 35626 12/19/202312/18, 12/18/2022, 01/12/2022, Additional history exists Lipid Panel 12/19/2027 12/18/2022, 08/0 03/2021, 01/15/2020, Additional history exists LUNG CANCER SCREENING - USE SMARTSET 31023 Completed 02/18/2020, 10/31/2018 ABDOMINAL AORTIC ANEURYSM (AAA) [...] as of this encounter Visit Diagnoses Diagnosis My[employer] Research Other*[id number] documented in this encounter Care Teams Building And Grounds Supervisor Relationship Specialty Start Date End Date Lior Merritt DO [address] [place] [address] PCP - General Family Medicine 10/03/20 documented as of this encounter
--- OUTSIDE RECORDS SUMMARY | 2023-06-16 09:08 | External Medical Summary | Summary of Care ---
Author Name Unknown Organization [facility] Address [address] [facility] [address] Phone [phone] Care Team Providers Care Health Information Specialist Name Role Phone Lior Merritt DO Primary Care Provider Reason for Visit * Reason Onset Date Comments Advice 12/20/2022 Encounter Details Date Type Department Care Team Description 12/20/2022 Telephone Family Practice [facility] [address] [place] [address] Lior Merritt DO [address] [place] [address] Advice Allergies Active Allergy Reactions Severity Noted [...] hemoglobin A1c goal of less than 7.0% ([facility]) Inject under the skin 2 times [...] encounter Miscellaneous Notes * Telephone Encounter - RANCHO Hargrove - 12/20/2022 4:38 PM EDT Jardiance is $1700 with good rx Pt can not afford He has the number of special program- please call to set up program for pt Phone number [phone] Please advise Thank you for your assistance Joelle White [facility] Work[facility] Pharm[facility] Refill Call Center 12/20/2022,4:40 PM documented in this encounter Plan of Treatment Upcoming Encounters Date Type Specialty Care Team Description 02/12/2023 Office Visit Ophthalmology Hector Wise T, DO [address] [place] [address] 03/15/2023 Office Visit [facility]acy [facility] [address] [place] [address] 06/24/2023 Office Visit Family Medicine Lior Merritt DO [address] [place] [address] Health Maintenance Due Date Last Done Comments [...] 12/27/2020 11/01/2020, 10/11/2020 CKD PHOS USE SMARTSET 18785 10/03/2021 03/02/2021, 10/25/2018, 12/07/2016, Additional history exists DIABETES-FOOT EXAM [...] , 12/28/2020, 10/29/2018 CKD HGB USE SMARTSET 51236 12/19/202312/18, 12/18/2022, 01/12/2022, Additional history exists Lipid Panel 12/19/2027 12/18/2022, 08/0 03/2021, 01/15/2020, Additional history exists LUNG CANCER SCREENING - USE SMARTSET 05146 Completed 02/18/2020, 10/31/2018 ABDOMINAL AORTIC ANEURYSM (AAA) [...] filedocumented as of this encounter Care Teams Health Information Specialist Relationship Specialty Start Date End Date Lior Merritt DO [address] [place] [address] PCP - General Family Medicine 10/03/20 documented as of this encounter
--- OUTSIDE RECORDS SUMMARY | 2023-06-16 09:08 | External Medical Summary | Summary of Care ---
Author Name Unknown Organization [facility] Address [address] [place] [address] Phone [phone] Care Team Providers Care Reordering Clerk Name Role Phone Lior Merritt DO Primary Care Provider Reason for Visit * Reason Onset Date Comments Appointment 01/18/2023 recall Encounter Details Date Type Department Care Team Description 01/18/2023 Telephone Vascular Surg [facility] [address] [place] [address] Wolf Chappell MD [address] [place], [place] [id number] Appointment (recall) Allergies Active Allergy Reactions Severity Noted Date Comments Amoxicillin-Pot Clavulanate 07/24/20 07 Pruritic rash documented as of this encounter (statuses as of 01/18/2023) Medications Medication Sig Dispensed Refills Start Date [...] hemoglobin A1c goal of less than 7.0% ([facility]) Inject under the skin 2 times [...] as of this encounter (statuses as of 01/18/2023) Active Problems Problem Noted Date AAA (abdominal [...] as of this encounter (statuses as of 01/18/2023) Resolved Problems Problem Noted Date Resolved Date [...] as of this encounter (statuses as of 01/18/2023) Immunizations Name Administration Dates Next Due COVID-19 [...] encounter Miscellaneous Notes * Telephone Encounter - MEAGAN Caruso - 01/18/2023 10:05 AM EDT Patient had US on 12/18 Can he have a telephone appt or does he need to be seen? Lives in [facility] Please advise [facility] * Telephone Encounter - MEAGAN Caruso - 01/18/2023 7:52 AM EDT lmam ptc to schedule 01/17/23 LL1 documented in this encounter Plan of Treatment Upcoming Encounters Date Type Specialty Care Team Description 02/12/2023 Office Visit Ophthalmology Hector Wise, DO [address] [place] [address] 03/15/2023 Office Visit Pharmacy [facility] [address] [place] [address] 06/24/2023 Office Visit Family Medicine Lior Merritt DO [address] [place] [address] Health Maintenance Due Date Last Done Comments [...] 12/27/2020 11/01/2020, 10/11/2020 CKD PHOS USE SMARTSET 19738 10/03/2021 03/0 02/2021, 10/25/2018, 12/07/2016, Additional history [...] , 12/28/2020, 10/29/2018 CKD HGB USE SMARTSET 53890 12/19/202312/18, 12/18/2022, 01/12/2022, Additional history exists Lipid Panel 12/19/2027 12/18/2022, 08/0 03/2021, 01/15/2020, Additional history exists LUNG CANCER SCREENING - USE SMARTSET 59423 Completed 02/18/2020, 10/31/2018 ABDOMINAL AORTIC ANEURYSM (AAA) [...] filedocumented as of this encounter Care Teams Reordering Clerk Relationship Specialty Start Date End Date Lior Merritt DO [address] [place] [address] PCP - General Family Medicine 10/03/20 documented as of this encounter
--- OUTSIDE RECORDS SUMMARY | 2023-06-16 09:08 | External Medical Summary | Summary of Care ---
Author Name Unknown Organization [facility] Address [address] [facility] [address] Phone [phone] Care Team Providers Care Metal Bonding Helper Name Role Phone Lior Merritt DO Primary Care Provider Reason for Visit * Reason Onset Date Comments Advice 12/20/2022 Encounter Details Date Type Department Care Team Description 12/20/2022 Telephone Family Practice [facility] [address] [place] [address] Lior Merritt DO [address] [place] [address] Advice Allergies Active Allergy Reactions Severity Noted [...] Encounter - Genoveva Almaguer LPN - 12/21/2022 4:30 PM EDT Copy of form sent to scanning. Copy sent to pt via [employer] * Telephone Encounter - Genoveva Almaguer LPN - 12/21/2022 9:40 AM EDT Called the number provided by pt. Was told to go to website and download and print off application for assistane. Form printed out to be completed. * Telephone Encounter - RANCHO Hargrove - 12/20/2022 4:38 PM EDT Jardiance is $1700 with good rx Pt can not afford He has the number of special program- please call to set up program for pt Phone number [phone] Please advise Thank you for your assistance Joelle White Horticulture Teacher [facility] Pharm[facility] Refill Call Center 12/20/2022,4:40 PM documented in this encounter Plan of Treatment Upcoming Encounters Date Type Specialty Care Team Description 02/12/2023 Office Visit Ophthalmology Hector Wise, DO [address] [place] [address] 03/15/2023 Office Visit [facility]acy [facility] [address] [place] [address] 06/24/2023 Office Visit Family Medicine Lior Merritt DO [address] [place] [address] Health Maintenance Due Date Last Done Comments DISCUSS TOBACCO CESSATION (REFER TO SMARTSET #9478) 1955 DXA Scan 1953 DTaP,Tdap,and Td Vaccines (1 - Tdap) 1972 Cologuard 1998 Fecal Occult Blood Test 1998 Sigmoidoscopy 1998 Zoster Vaccines (1 of 2) 2003 Pneumococcal Vaccine: 65+ Years (2 - PCV) 03/14/2007 03/14/2006 Colonoscopy 12/01/2019 11/30/2009 Colorectal Cancer Screening 12/01/2019 COVID-19 Vaccine (3 - Booster for Pfizer series) 12/27/2020 11/01/2020, 10/11/2020 CKD PHOS USE SMARTSET 23764 10/03/2021 03/0 02/2021, 10/25/2018, 12/07/2016, Additional history [...] , 12/28/2020, 10/29/2018 CKD HGB USE SMARTSET 39238 12/19/202312/18, 12/18/2022, 01/12/2022, Additional history exists Lipid Panel 12/19/2027 12/18/2022, 08/0 03/2021, 01/15/2020, Additional history exists LUNG CANCER SCREENING - USE SMARTSET 41733 Completed 02/18/2020, 10/31/2018 ABDOMINAL AORTIC ANEURYSM (AAA) [...] filedocumented as of this encounter Care Teams Metal Bonding Helper Relationship Specialty Start Date End Date Lior Merritt DO [address] [place] [address] PCP - General Family Medicine 10/03/20 documented as of this encounter
--- OUTSIDE RECORDS SUMMARY | 2023-06-16 09:08 | External Medical Summary | Summary of Care ---
Author Name Unknown Organization [facility] Address [address] [facility] [address] Phone [phone] Care Team Providers Care Plate Gauger Name Role Phone Lior Merritt DO Primary Care Provider [phone] Reason for Visit * Reason Onset Date Comments Advice 12/20/2022 Encounter Details Date Type Department Care Team Description 12/20/2022 Telephone Family Practice [facility] [address] [place] [address] Lior Merritt DO [address] [place] [address] Advice Allergies Active Allergy Reactions Severity Noted [...] hemoglobin A1c goal of less than 7.0% ([facility]) Inject under the skin 2 [...] Miscellaneous Notes * Telephone Encounter - MEAGAN Lozano - 12/25/2022 10:36 AM EDT Pt calling back in asking for a hard copy, will be in to the office on to medicinal plant picker hard copy * Telephone Encounter - Genoveva Almaguer LPN - 12/21/2022 4:30 PM EDT Copy of form sent to scanning. Copy sent to pt via [employer]G * Telephone Encounter - Genoveva Almaguer LPN - 12/21/2022 9:40 AM EDT Called the number provided by pt. Was told to go to website and download and print off application for [employer]. Form printed out to be completed. * Telephone Encounter - RANCHO Hargrove - 12/20/2022 4:38 PM EDT Jardiance is $1700 with good rx Pt can not afford He has the number of special program- please call to set up program for pt Phone number [phone] Please advise Thank you for your assistance Joelle White Slag Mixer [facility] Pharmacy Refill Call Center 12/20/2022,4:40 PM documented in this encounter Plan of Treatment Upcoming Encounters Date Type Specialty Care Team Description 02/12/2023 Office Visit Ophthalmology Hector Wise, [address] [place] [address] 03/15/2023 Office Visit [facility] [address] [place] [address] 06/24/2023 Office Visit Family Medicine Lior Merritt DO [address] [place] [address] Health Maintenance Due Date Last Done Comments DISCUSS TOBACCO CESSATION (REFER TO SMARTSET #1716) 1955 DXA Scan 1953 DTaP,Tdap,and Td Vaccines (1 - Tdap) 1972 Cologuard 1998 Fecal Occult Blood Test 1998 Sigmoidoscopy 1998 Zoster Vaccines (1 of 2) 2003 Pneumococcal Vaccine: 65+ Years (2 - PCV) 03/14/2007 03/14/2006 Colonoscopy 12/01/2019 11/30/2009 Colorectal Cancer Screening 12/01/2019 COVID-19 Vaccine (3 - Booster for Pfizer series) 12/27/2020 11/01/2020, 10/11/2020 CKD PHOS USE SMARTSET 91107 10/03/2021 03/0 02/2021, 10/25/2018, 12/07/2016, Additional history [...] , 12/28/2020, 10/29/2018 CKD HGB USE SMARTSET 06246 12/19/202312/18, 12/18/2022, 01/12/2022, Additional history exists Lipid Panel 12/19/2027 12/18/2022, 08/0 03/2021, 01/15/2020, Additional history exists LUNG CANCER SCREENING - USE SMARTSET 08332 Completed 02/18/2020, 10/31/2018 ABDOMINAL AORTIC ANEURYSM (AAA) [...] filedocumented as of this encounter Care Teams Plate Gauger Relationship Specialty Start Date End Date Lior Merritt DO [address] [place] [address] PCP - General Family Medicine 10/03/20 documented as of this encounter
--- OUTSIDE RECORDS SUMMARY | 2023-06-16 09:08 | External Medical Summary | Summary of Care ---
Author Name Unknown Organization [facility] Address [address] [place] [address] Phone [phone] Care Team Providers Care Brine Tank Tender Name Role Phone Lior Merritt DO Primary Care Provider Reason for Visit * Reason Onset Date Comments Appointment 01/18/2023 recall Encounter Details Date Type Department Care Team Description 01/18/2023 Telephone Vascular Surg [facility] [address] [place] [address] Wolf Chappell MD [address], [place] [phone] Appointment (recall) Allergies Active Allergy Reactions Severity [...] A1c goal of less than 7.0% ([facility]) Inject under the skin 2 times a [...] Telephone Encounter - MEAGAN Caruso - 01/18/2023 10:23 AM EDT Called and left message rr * Telephone Encounter - SHYANNE Blackman - 01/18/2023 10:11 AM EDT Yes - please schedule a telephonic appointment. Joaquina. SHYANNE Velez 01/18/2023 10:11 AM * Telephone Encounter - MEAGAN Caruso - 01/18/2023 10:05 AM EDT Patient had US on 12/18 Can he have a telephone appt or does he need to be seen? Lives in [place] Please advise [facility] * Telephone Encounter - MEAGAN Caruso - 01/18/2023 7:52 AM EDT lmam ptc to schedule 01/17/23 LL1 documented in this encounter Plan of Treatment Upcoming Encounters Date Type Specialty Care Team Description 02/12/2023 Office Visit Ophthalmology Hector Wise, [address] [place] [address] 03/15/2023 Office Visit Pharmacy [facility] [address] [place] [address] [place] [address] 06/24/2023 Office Visit Family Medicine Lior Merritt DO [address] [place] [address] Health Maintenance Due Date Last Done Comments DISCUSS TOBACCO CESSATION (REFER TO SMARTSET #3837) 1953 DXA Scan 1955 DTaP,Tdap,and Td Vaccines (1 - Tdap) 1972 Cologuard 1998 Fecal Occult Blood Test 1998 Sigmoidoscopy 1998 Zoster Vaccines (1 of 2) 2003 Pneumococcal Vaccine: 65+ Years (2 - PCV) 03/14/2007 03/14/2006 Colonoscopy 12/01/2019 11/30/2009 Colorectal Cancer Screening 12/01/2019 COVID-19 Vaccine (3 - Pfizer series) 12/27/2020 11/01/2020, 10/11/2020 CKD PHOS USE SMARTSET 43515 10/03/2021 03/0 02/2021, 10/25/2018, 12/07/2016, Additional history [...] , 12/28/2020, 10/29/2018 CKD HGB USE SMARTSET 63659 12/19/202312/18, 12/18/2022, 01/12/2022, Additional history exists Lipid Panel 12/19/2027 12/18/2022, 08/0 03/2021, 01/15/2020, Additional history exists LUNG CANCER SCREENING - USE SMARTSET 79811 Completed 02/18/2020, 10/31/2018 ABDOMINAL AORTIC ANEURYSM (AAA) [...] filedocumented as of this encounter Care Teams Brine Tank Tender Relationship Specialty Start Date End Date Lior Merritt DO [address] [place] [address] PCP - General Family Medicine 10/03/20 documented as of this encounter
--- OUTSIDE RECORDS SUMMARY | 2023-06-16 09:08 | External Medical Summary | Summary of Care ---
Author Name Unknown Organization [facility] Address [address] [facility] [address] Phone [phone] Care Team Providers Care Wardrobe Specialty Worker Name Role Phone Lior Merritt DO Primary Care Provider Reason for Visit * Reason Onset Date Comments Advice 12/20/2022 Encounter Details Date Type Department Care Team Description 12/20/2022 Telephone Family Practice [facility] [address] [place] [address] Lior Merritt DO [address] [place] [address] Advice Allergies Active Allergy Reactions Severity Noted [...] to be completed. * Telephone Encounter - Joelle White, ceramic tile mechanic - 12/20/2022 4:38 PM EDT Jardiance is $1700 with good rx Pt can not afford He has the number of special program- please call to set up program for pt Phone number [phone] Please advise Thank you for your assistance Joelle White [facility] 12/20/2022,4:40 PM documented in this encounter Plan of Treatment Upcoming Encounters Date Type Specialty Care Team Description 02/12/2023 Office Visit Ophthalmology Hector Wise DO [address] [place] [address] 03/15/2023 Office Visit Pharmacy [facility] [place] [address] [place] [address] 06/24/2023 Office Visit Family Medicine Lior Merritt DO [address] [place] [address] Health Maintenance Due Date Last Done Comments [...] 12/27/2020 11/01/2020, 10/11/2020 CKD PHOS USE SMARTSET 71588 10/03/2021 03/0 02/2021, 10/25/2018, 12/07/2016, Additional history [...] , 12/28/2020, 10/29/2018 CKD HGB USE SMARTSET 72424 12/19/202312/18, 12/18/2022, 01/12/2022, Additional history exists Lipid Panel 12/19/2027 12/18/2022, 08/0 03/2021, 01/15/2020, Additional history exists LUNG CANCER SCREENING - USE SMARTSET 01622 Completed 02/18/2020, 10/31/2018 ABDOMINAL AORTIC ANEURYSM (AAA) [...] filedocumented as of this encounter Care Teams Wardrobe Specialty Worker Relationship Specialty Start Date End Date Lior Merritt DO [address] [place] [address] PCP - General Family Medicine 10/03/20 documented as of this encounter
--- OUTSIDE RECORDS SUMMARY | 2023-06-16 09:08 | External Medical Summary | Summary of Care ---
Author Name Unknown Organization [facility] Address [address] [place] [address] Phone [phone] Care Team Providers Care Potline Monitor Name Role Phone Lior Merritt DO Primary Care Provider Reason for Visit * Reason Onset Date Comments Appointment 01/18/2023 recall Encounter Details Date Type Department Care Team Description 01/18/2023 Telephone Vascular Surg [facility] [address] [place] [address] Wolf Chappell MD [address], [place] [id number] Appointment (recall) Allergies Active Allergy Reactions Severity [...] hemoglobin A1c goal of less than 7.0% ([facility]) Inject under the skin 2 times a [...] Hector Wise, [address] [place] [address] 03/15/2023 Office Visit Pharmacy [facility] [place] [address] [place] [address] 06/24/2023 Office Visit Family Medicine Lior Merritt DO [address] [place] [address] Health Maintenance Due Date Last Done Comments DISCUSS TOBACCO CESSATION (REFER TO SMARTSET #4231) 1955 DXA Scan 1953 DTaP,Tdap,and Td Vaccines (1 - Tdap) 1972 Cologuard 1998 Fecal Occult Blood Test 1998 Sigmoidoscopy 1998 Zoster Vaccines (1 of 2) 2003 Pneumococcal Vaccine: 65+ Years (2 - PCV) 03/14/2007 03/14/2006 Colonoscopy 12/01/2019 11/30/2009 Colorectal Cancer Screening 12/01/2019 COVID-19 Vaccine (3 - Pfizer series) 12/27/2020 11/01/2020, 10/11/2020 CKD PHOS USE SMARTSET 16894 10/03/2021 03/0 02/2021, 10/25/2018, 12/07/2016, Additional history [...] , 12/28/2020, 10/29/2018 CKD HGB USE SMARTSET 68381 12/19/202312/18, 12/18/2022, 01/12/2022, Additional history exists Lipid Panel 12/19/2027 12/18/2022, 08/0 03/2021, 01/15/2020, Additional history exists LUNG CANCER SCREENING - USE SMARTSET 18818 Completed 02/18/2020, 10/31/2018 ABDOMINAL AORTIC ANEURYSM (AAA) [...] filedocumented as of this encounter Care Teams Potline Monitor Relationship Specialty Start Date End Date Lior Merritt DO [address] [place] [address] PCP - General Family Medicine 10/03/20 documented as of this encounter
--- OUTSIDE RECORDS SUMMARY | 2023-06-16 09:08 | External Medical Summary | Summary of Care ---
Author Name Unknown Organization [facility] Address [address] [place] [address] Phone [phone] Care Team Providers Care Technology Auditor Name Role Phone Lior Merritt DO Primary Care Provider Reason for Visit * Reason Onset Date Comments Appointment 01/18/2023 recall Encounter Details Date Type Department Care Team Description 01/18/2023 Telephone Vascular Surg [facility] [address] [place] [address] Wolf Chappell MD [address] [place], [place] [phone] Appointment (recall) Allergies Active Allergy Reactions Severity [...] goal of less than 7.0% ([facility]) Inject under the skin 2 [...] encounter Miscellaneous Notes * Telephone Encounter - SHYANNE Blackman - 01/18/2023 10:11 AM EDT Yes - please schedule a telephonic appointment. Joaquina. SHYANNE Velez 01/18/2023 10:11 AM * Telephone Encounter - MEAGAN Caruso - 01/18/2023 10:05 AM EDT Patient had US on 12/18 Can he have a telephone appt or does he need to be seen? Lives in [place] Please advise rr * Telephone Encounter - MEAGAN Caruso - 01/18/2023 7:52 AM EDT lmam ptc to schedule 01/17/23 LL1 documented in this encounter Plan of Treatment Upcoming Encounters Date Type Specialty Care Team Description 02/12/2023 Office Visit Ophthalmology Hector Wise, DO [address] [place] [address] 03/15/2023 Office Visit Pharmacy [facility] [place] [address] [place] [address] 06/24/2023 Office Visit Family Medicine Lior Merritt DO [address] [place] [address] Health Maintenance Due Date Last Done Comments DISCUSS TOBACCO CESSATION (REFER TO SMARTSET #1901) 1955 DXA Scan 1953 DTaP,Tdap,and Td Vaccines (1 - Tdap) 1972 Cologuard 1998 Fecal Occult Blood Test 1998 Sigmoidoscopy 1998 Zoster Vaccines (1 of 2) 2003 Pneumococcal Vaccine: 65+ Years (2 - PCV) 03/14/2007 03/14/2006 Colonoscopy 12/01/2019 11/30/2009 Colorectal Cancer Screening 12/01/2019 COVID-19 Vaccine (3 - Pfizer series) 12/27/2020 11/01/2020, 10/11/2020 CKD PHOS USE SMARTSET 76225 10/03/2021 03/0 02/2021, 10/25/2018, 12/07/2016, Additional history [...] , 12/28/2020, 10/29/2018 CKD HGB USE SMARTSET 79026 12/19/202312/18, 12/18/2022, 01/12/2022, Additional history exists Lipid Panel 12/19/2027 12/18/2022, 08/0 03/2021, 01/15/2020, Additional history exists LUNG CANCER SCREENING - USE SMARTSET 69855 Completed 02/18/2020, 10/31/2018 ABDOMINAL AORTIC ANEURYSM (AAA) [...] filedocumented as of this encounter Care Teams Technology Auditor Relationship Specialty Start Date End Date Lior Merritt DO [address] [facility] [place] [address] PCP - General Family Medicine 10/03/20 documented as of this encounter
--- OUTSIDE RECORDS SUMMARY | 2023-06-16 09:08 | External Medical Summary | Summary of Care ---
Author Name Unknown Organization [facility] Address [address] [place] [address] Phone [phone] Care Team Providers Care Furnace Caretaker Name Role Phone Lior Maher DO Primary Care Provider [phone] Reason for Visit * Reason Comments AAA Encounter Details Date Type Department Care Team Description 01/30/2023 Telemedicine Vascular Surg [facility] [address], [place] [id number] Demetrio Renteria CRNP [address], [place] [id number] Infrarenal abdominal aortic aneurysm (AAA) without rupture (HCC)*; Type 2 diabetes mellitus with hemoglobin A1c goal of less than 7.0% (HCC); Type 2 diabetes mellitus with stage 3a chronic kidney disease, with long-term current use of insulin (HCC); Dyslipidemia; Tobacco use disorder; HTN, goal below 130/80 Allergies Active Allergy Reactions Severity Noted Date Comments Amoxicillin-Pot Clavulanate 07/24/20 07 Pruritic rash documented as of this encounter (statuses as of 01/30/2023) Medications Medication Sig Dispensed Refills Start Date [...] as of this encounter (statuses as of 01/30/2023) Active Problems Problem Noted Date AAA (abdominal [...] as of this encounter (statuses as of 01/30/2023) Resolved Problems Problem Noted Date Resolved Date [...] as of this encounter (statuses as of 01/30/2023) Immunizations Name Administration Dates Next Due COVID-19 [...] as of this encounter Progress Notes * SHYANNE Khalil - 01/30/2023 8:15 AM EDT Patient location: HOME. I was in a hospital or clinic location. After connecting through [employer],patient was verified with two unique identifiers. Patient (or authorized legal patient registration representative) was then informed that this was a Telemedicine visit and being conducted confidentially over secure lines. Methods to assure confidentiality were taken. Patient acknowledged consent and understanding of pr ivacy and security of the Telemedicine visit. The patient agreed to participate. Visit Disposition: Routine follow-up Total call duration was 10 minutes. Date of Service: 01/30/2023 8:16 AM Rj Stern is a 67 year old male. Patient being seen in consultation at the request of Lior Maher DO Chief Complaint: AAA HPI: Mr. Stern is a 67 year old male who presents for the evaluation and treatment of AAA. ABDOMINAL AORTIC ANEURYSM: Patient denies any symptoms related to AAA. Patient's chronic low back pain resolved after pain injection Patient denies new abdominal pain, flank pain and back pain. 12/18/2022 Size of aneurysm is 4.1 cm as detected by ultrasound. FAMILY HISTORY: No family history of aortic aneurysms. Current Outpatient Medications Medication Sig Dispense Refill ONE TOUCH TEST STRIPS TEST Test bid 1box 11 aspirin enteric coated 81 MG TBEC Take 1 Tablet by mouth in the morning. Insulin NPH Isophane & Regular (70-30) 100 UNIT/ML Subcutaneous Suspension (NovoLIN 70/30) Inject under the skin 2 times a day before breakfast and supper. 18 units before breakfast and 15 units before supper. 10 mL 1 DULoxetine HCl 30 MG Oral Capsule Delayed Release Particles (Cymbalta) Take by mouth 1 Capsule in the morning. Do not cut, crush or chew. 30 Capsule 5 Lisinopril 2.5 MG Oral Tablet (Prinivil) Take 1 tablet by mouth once daily 90 Tablet 3 metFORMIN HCl 1000 MG Oral Tablet (Glucophage) TAKE 1 TABLET BY MOUTH TWO TIMES DAILY WITH MORNING AND EVENING MEAL 180 Tablet 3 amLODIPine Besylate 5 MG Oral Tablet (Norvasc) TAKE 1 TABLET BY MOUTH EVERY DAY 90 Tablet 1 Empagliflozin 10 MG Oral Tablet (Jardiance) Take 1 Tablet by mouth in the morning. 90 Tablet 3 Rosuvastatin Calcium 10 MG Oral Tablet (Crestor) Take 1 Tablet by mouth in the morning. 90 Tablet 3 Current Facility-Administered Medications Medication Dose Route Frequency Provider Last Rate Last Admin Aflibercept (Eylea) intraviteal prefilled syringe 2 mg 2 mg Intravitreal PRN Christopher T Cessna, DO 2 mg at 12/11/22 0953 ROPivacaine (Naropin) inj 1.5 mg 1.5 mg Injection PRN Christopher T Cessna, DO 1.5 mg at 12/11/22 0954 Review of patient's allergies indicates: Allergen Reactions Amoxicillin And Potassium Clavulanate [Amoxicillin-Pot Clavulanate] Pruritic rash Patient Active Problem List Diagnosis Code Deviated nasal septum J34.2 Chronic rhinitis J31.0 Type 2 diabetes mellitus with hemoglobin A1c goal of less than 7.0% ([facility]) E11.9 Dyslipidemia E78.5 Diverticulosis of colon K57.30 Tobacco use disorder F17.200 Noise-induced hearing loss H83.3X9 HTN, goal below 130/80 I10 Pancreatic divisum Q45.3 Hypertensive kidney disease with stage 3a chronic kidney disease I12.9, N18.31 Chronic kidney disease, stage 3a ([facility]) N18.31 Type 2 diabetes mellitus with stage 3a chronic kidney disease, with long- term current use of insulin ([facility]) E11.22, N18.31, Z79.4 AAA (abdominal aortic aneurysm) ([facility]) I71.40 Past Medical History: Diagnosis Date Benign neoplasm of colon 11/30/09 diverticulosis, polyps x3, hyperplastic tissue repeat 10 yr CHR ETHMOIDAL SINUSITIS,LEFT 05/14/2008 CHR MAXILLARY SINUSITIS,LEFT 05/14/2008 FOLLOWING SURGERY, ENDOSCOPIC SINUS SURGERY 06/07/2008 HYPERTRPH NASAL TURBINAT,LEFT MIDDLE 05/14/2008 Pancreatic divisum 07/31/2018 Noted on MRCP Tobacco use disorder 02/01/2010 Past Surgical History: Procedure Laterality Date COLONOSCOPY W/ LESION REMOVAL, SNARE 11/30/2009 done diverticulosis, polyps x3, hyperplastic tissue repeat 10 yrs COLONOSCOPY W/ SUBMUCOUS INJ 11/30/2009 done EGD, W/ENDOSCOPIC US 09/12/2018 normal/ESOPHAGOGASTRODUODENOSCOPY (EGD), FLEXIBLE, TRANSORAL, ENDOSCOPIC ULTRASOUND performed by Griffin Alejandra MD at ENDOSCOPY [facility] INFORMATION ACT 112 SIGNED, Dr. Wise (10-26-2020) INJECT DX/THER SUBSTANCE INTERLAMINAR LUMBAR/SACRAL W IMAGE GUIDE 12/27/2021 INJECTION SPINE LUMBAR OR SACRAL performed by Frederick Ceballos DO at OR [facility] INJECTION OF EYE DRUG Left 10/26/2020 # 1 Eylea OS, Dr. Wise INJECTION OF EYE DRUG Left 11/30/2020 #2 Eylea OSDr Billie INJECTION OF EYE DRUG Left 01/17/2021 #3 Eylea OS, Dr Wise INJECTION OF EYE DRUG Left 04/04/2021 # 4 Eylea OS, Dr. Wise INJECTION OF EYE DRUG Left 05/08/2021 # 5 Eylea OS, Dr. Wise INJECTION OF EYE DRUG Left 06/26/2021 #6 Eylea OS, Dr. Wise INJECTION OF EYE DRUG Left 08/01/2021 # 7 Eylea OS, Dr. Wise INJECTION OF EYE DRUG Left 09/12/2021 # 8 Eylea OS, Dr. Wise INJECTION OF EYE DRUG Left 10/27/2021 # 9 Eylea OS, Dr. Wise INJECTION OF EYE DRUG Left 12/19/2021 # 10 Eylea OS, Dr. Wise INJECTION OF EYE DRUG Left 02/13/2022 # [address] Wise INJECTION OF EYE DRUG Left 04/24/2022 # 12 Eylea OS, Dr. Wise INJECTION OF EYE DRUG Left 06/12/2022 # 13 Eylea OS Billie INJECTION OF EYE DRUG Left 08/07/2022 #14 Eylea OS; Dr Wise INJECTION OF EYE DRUG 10/09/2022 # 15 Eylea OS, Dr. Wise INJECTION OF EYE DRUG Left 12/11/2022 # 16 Eylea OS, Dr. Wise LAPAROSCOPY; CHOLECYSTECTOMY 07/16/2018 07/16/2018 laparoscopy cholecystectomy [facility] , Tam LUMBAR / SACRAL EPIDURAL, SINGLE LEVEL 04/11/2015 INJECTION TRANSFORAMINAL EPIDURAL LUMBAR OR SACRAL performed by Frederick Ceballos DO at OR [facility] LUMBAR / SACRAL EPIDURAL, SINGLE LEVEL 04/25/2015 INJECTION TRANSFORAMINAL EPIDURAL LUMBAR OR SACRAL performed by Frederick B Cousins, DO at OR [facility] LUMBAR / SACRAL EPIDURAL, SINGLE LEVEL 02/07/2022 INJECTION TRANSFORAMINAL EPIDURAL LUMBAR OR SACRAL performed by Frederick Ceballos, DO at OR [facility] LUMBAR / SACRAL EPIDURAL, SINGLE LEVEL 04/18/2022 INJECTION TRANSFORAMINAL EPIDURAL LUMBAR OR SACRAL performed by Frederick Ceballos, DO at OR [facility] OTHER (INFORMATION) Left EYLEA OS CONSENT SIGNED, Billie Graham (Exp 10-26-2021) OTHER (INFORMATION) EYLEA OS CONSENT DR. MERCEDES EXP. 10/27/22 OTHER (INFORMATION) 12/11/2022 Eylea Consent OU, Exp 12/12/23; Dr. 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 [employer] Tobacco Use Smoking status: Every Day Packs/day: 1.00 Years: 32.00 Pack years: 32.00 Types: Vaporizer, Cigarettes Last attempt to quit: 04/28/2013 Years since quittin.7 Smokeless tobacco: Never Tobacco comments: started smoking age 16, 1 pk qd Vaping Use Vaping Use: Every day Substances: THC Devices: Disposable Substance and Sexual Activity Alcohol use: No Comment: pt in NA Drug use: No Sexual activity: Yes Partners: Female Other Topics Concern Not on file Social History Narrative Not on file Social Determinants of Health Financial Resource Strain: Not on file Food Insecurity: No Food Insecurity Worried About Running Out of Food in the Last Year: Never true Ran Out of Food in the Last Year: Never true Transportation Needs: Not on file Physical Activity: Not on file Stress: Not on file Social Connections: Not on file Intimate Partner Violence: Not on file Housing Stability: Not on file Vaping/E-Cigarette Use Vaping/E-Cigarette Use Current Every Day User Vaping/E-Cigarette Substances Nicotine No Other No Flavoring No THC Yes Cannabidiol (CBD) No Vaping/E-Cigarette Devices Disposable Yes Pre-filled or Refillable Cartridge No Refillable Tank No Pre-filled Pod No COMPLETE REVIEW OF SYSTEMS: Cardiovascular: Negative for chest pain, shortness of breath, palpitations, angina or WI Neurological: Negative for stroke, TIA, amaurosis fugax All other systems negative except for those noted above and in the history of present illness (HPI). GENERAL MULTI-SYSTEM PHYSICAL EXAM: PER LAST CLINIC VISIT OF 03/29/2021 GENERAL MULTI-SYSTEM PHYSICAL EXAM: ADDITIONAL VS: pulse regular. GENERAL: Normal grooming habits, no acute distress and appears stated age. NECK: No masses and Normal Thyroid. RESPIRATORY: respiratory effort normal and breath sounds normal. CARDIOVASCULAR: no heart murmurs, no edema and no varicosities. GASTROINTESTINAL: no tenderness, protuberant and abdominal aorta not palpable. LYMPHATIC: cervical lymph nodes normal and inguinial lymph nodes normal. SKIN: no ulcers, no rash, no induration, capillary refill normal and no dependent rubor. PSYCHIATRIC: orientation to time, place and person normal and recent and remote memory normal. EYES: conjunctivae normal, eye lids normal, pupils normal and irises normal. NEUROLOGIC: Cranial nerves intact, Motor function intact and Sensory exam intact PULSE SCALE: Carotid Right:----Bruit: No Left:----Bruit: No Radial Right: 3 Left: 3 Femoral Right: 3 Left: 3 Popliteal Right: 2 Left: 2 Dorsalis Pedis Right: 2 Left: 2 Posterior Tibial Right: 2 Left: 2 PULSE SCALE: 4=Aneurysmal; 3=Normal; 2=Diminished; 1=Barely Palpable; 0=Absent DIAGNOSTIC STUDIES: Date: 12/18/2022; Location of Study: [facility]; Modality: duplex; AAA measures 4.1 cm in greatest transverse dimension. The above diagnostic images were directly visualized and independently interpreted by me on 01/30/2023 with results as above 12/28/20: aortic duplex: 3.5 cm AAA 10/29/2018: Aortic duplex 3.1 cm AAA The above vascular lab images were directly visualized and independently interpreted by me on 03/28/2021 with results as above. LABS: Lab Results Component Value Date/Time CREATININE 1.1 09/10/1996 01:50 PM CREATININE - [facility] 1.3 (H) 12/18/2022 09:36 AM CREATININE - [facility] 1.0 01/19/2022 03:20 PM CREATININE - [facility] 1.1 06/20/2021 02:43 PM CREATININE - [facility] 1.3 (H) 04/29/2019 09:45 AM CREATININE - [facility] 1.6 (H) 10/25/2018 08:32 AM CREATININE - [facility] 1.5 (H) 12/07/2016 10:36 AM CREATININE, RANDOM URINE - [facility] 102 12/14/2022 02:52 PM CREATININE, RANDOM URINE - [facility] 93 09/15/2021 03:33 PM CREATININE, RANDOM URINE - [facility] 159 05/05/2019 12:23 PM CREATININE, RANDOM URINE - [facility] 53 12/07/2016 10:38 AM CREATININE, RANDOM URINE - [facility] 80 11/03/2015 08:30 AM CREATININE-OUTSIDE LAB 0.95 01/12/2022 12:00 AM CREATININE-OUTSIDE LAB 1.00 01/11/2022 12:00 AM CREATININE-OUTSIDE LAB 1.98 (A) 07/25/2018 12:00 AM Lab Results Component Value Date/Time LDL CHOLESTEROL (CALCULATED) - [facility] 113 12/18/2022 09:36 AM LDL CHOLESTEROL (CALCULATED) - [facility] 46 01/15/2020 09:49 AM LDL CHOLESTEROL (DIRECT MEASURE) - [facility] NOT APPLICABLE 01/15/2020 09:49 AM LDL CHOLESTEROL (DIRECT MEASURE) - [facility] 121 12/10/2012 11:24 AM Hemoglobin Results: Lab Results Component Value Date/Time HGB 16.6 09/10/1996 01:50 PM HGB - [facility] 14.1 12/18/2022 09:36 AM HGB - [facility] 13.6 (L) 06/20/2021 02:43 PM HGB - [facility] 14.0 10/03/2020 12:34 PM HGB - [facility] 14.0 10/25/2018 08:32 AM HGB - [facility] 15.2 02/16/2015 09:00 AM Hemoglobin AIC Results: Lab Results Component Value Date/Time HEMOGLOBIN A1C - [facility] 8.4 (H) 12/18/2022 09:36 AM HEMOGLOBIN A1C - [facility] 7.3 (H) 06/15/2022 09:44 AM HEMOGLOBIN A1C - [facility] 7.8 (H) 01/19/2022 03:20 PM HEMOGLOBIN A1C - [facility] 7.5 (H) 04/29/2019 09:45 AM HEMOGLOBIN A1C - [facility] 7.3 (H) 10/25/2018 08:32 AM HEMOGLOBIN A1C - [facility] 9.2 (H) 12/07/2016 10:36 AM The above clinical labs were reviewed by me on 01/30/2023. IMPRESSIONS: Asymptomatic 4.1 cm AAA by duplex 11/2022. HTN Dyslipidemia Former smoker, vape now (zero nicotine product) DM. CKD. PLAN: The patient was counseled regarding the pathophysiology and natural history of abdominal aortic aneurysms, as well as the signs of rupture and the need to initiate emergency medical attention in thatsituation. Asymtomatic 4.1 cm aneurysm per 12/18/2022 duplex is 6 mm larger when to compared to duplex in 12/2020. Will continue routine surveillance. Continue daily 81 mg ASA for antiplatelet therapy. Continue daily 10 mg Crestor for dyslipidemia. Patient counseled regarding vape cessation. AAA screening for family discussed. F/U in 12/[address] [facility] Dr[facility] Chappell, or sooner prn. Will need repeat aortic duplex completed at 1 week prior to clinic visit. Ronna Isidro, SHYANNE Section of Vascular and Endovascular Surgery [place], [place] [id number] [phone] Ronna Isidro CRNP Section of Vascular and Endovascular Surgery [place], [place] [id number] [phone] documented in this encounter Plan of Treatment Upcoming Encounters Date Type Specialty Care Team Description 02/12/2023 Office Visit Ophthalmology Hector Wise DO [address] [place] [id number] 03/15/2023 Office Visit Pharmacy [facility] [address] [place] [address] 06/24/2023 Office Visit Family Medicine Lior Maher DO [address] [place] [address] Scheduled Orders Name Type Priority Associated Diagnoses Orde r Schedule VASC AORTIC DUPLEX EVAL-COMPLETE Medical Imaging Routine Infrarenal abdominal aortic aneurysm (AAA) without rupture (HCC) Expected: 01/01/2024 (Approximate), Expires: 03/02/2024 Health Maintenance Due Date Last Done Comments DISCUSS TOBACCO CESSATION (REFER TO SMARTSET #[id number]) 1953 DXA Scan 1953 DTaP,Tdap,and Td Vaccines (1 - Tdap) 1972 Cologuard 1998 Fecal Occult Blood Test 1998 Sigmoidoscopy 1998 Zoster Vaccines (1 of 2) 2003 Pneumococcal Vaccine: 65+ Years (2 - PCV) 03/14/2007 03/14/2006 Colonoscopy 12/01/2019 11/30/2009 Colorectal Cancer Screening 12/01/2019 COVID-19 Vaccine (3 - Pfizer series) 12/27/2020 11/01/2020, 10/11/2020 CKD PHOS USE SMARTSET [id number] 10/03/2021 03/0 02/2021, 10/25/2018, 12/07/2016, Additional history [...] , 12/28/2020, 10/29/2018 CKD HGB USE SMARTSET 34505 12/19/202312/18, 12/18/2022, 01/12/2022, Additional history exists Lipid Panel 12/19/2027 12/18/2022, 08/0 03/2021, 01/15/2020, Additional history exists LUNG CANCER SCREENING - USE SMARTSET [id number] Completed 02/18/2020, 10/31/2018 ABDOMINAL AORTIC ANEURYSM (AAA) [...] as of this encounter Visit Diagnoses Diagnosis Infrarenal abdominal aortic aneurysm (AAA) without rupture (HCC)- Primary Type 2 diabetes mellitus with hemoglobin A1c goal of less than 7.0% (HCC) Type 2 diabetes mellitus with stage 3a chronic kidney disease, with long-term current use of insulin (HCC) Dyslipidemia Other and unspecified hyperlipidemia Tobacco use disorder HTN, goal below 130/80 Unspecified essential hypertension documented in this encounter Care Teams Furnace Caretaker Relationship Specialty Start Date End Date Lior Maher DO [address] [place] [address] PCP - General Family Medicine 10/03/20 documented as of this encounter
--- OUTSIDE RECORDS SUMMARY | 2023-06-16 09:08 | External Medical Summary | Summary of Care ---
Author Name Unknown Organization [facility] Address [address] [place] [address] Phone [phone] Care Team Providers Care Communications Designer Name Role Phone Lior Maher DO Primary Care Provider + [phone] Reason for Referral * Evaluate & Treat - Unlimited Visits (Within 10 days (routine)) - Authorized Specialty Diagnoses / Procedures Referred By Carlos Alberto benitez Referred To Contact Podiatry Diagnoses Type 2 diabetes mellitus without complication, with long-term current use of insulin ([facility]) Lior Maher DO [address] [place] [address] Referral ID Status Reason Start Date Expiration Date Visits Requested Visits Authorized [id number] Authorized Specialty Services Required 12/14/[phone] Question Answer Referral Priority Within 10 days (routine) Which condition are you referring this patient for? Diabetic foot care/pain Specific condition? Diabetic Foot care Medicare Patient? Yes Can Patient perform routine footcare without assistance? No Does patient have a chronic condition? Yes Has patient been seen in the past 6 months? Yes Date last seen for chronic condition: 12/14/2022 Who saw patient for chronic condition? Dr. Maher Reason for Visit * Reason Comments Physical-Exam Pt here for annual C PE. Pt states that he has been more unstable on his feet Encounter Details Date Type Department Care Team Description 12/14/2022 Office Visit [facility] [address] [place] [address] Lior Maher, DO [address] [place] [address] HTN, goal below 130/80*; Type 2 diabetes mellitus without complication, with long-term current use of insulin ([facility]); Dyslipidemia; Spinal stenosis of lumbar region with neurogenic claudication; Abdominal aortic aneurysm (AAA) without rupture, unspecified part ([facility]); Central retinal vein occlusion of left eye, unspecified complication status; Risk and functional assessment Allergies Active Allergy Reactions Severity Noted Date Comments Amoxicillin-Pot Clavulanate 07/24/20 07 Pruritic rash documented as of this encounter (statuses as of 12/29/2022) Medications Medication Sig Dispensed Refills Start Date [...] 01/22/2022 Active Lisinopril 2.5 MG Oral Tablet (Prinivil)Indicatio [...] EVERY DAY 90 Tablet 1 08/01/2022 Active traMADol HCl 50 MG Oral Tablet (Ultram)Indications :Spinal stenosis of lumbar region without neurogenic claudication,Right lumbar radiculopathy Take by mouth 1 Tablet every 6 hours as needed for Pain, Severe. 30 Tablet 0 01/22/2022 3 Discontinue d(Medicatio n List Clean Up) [...] as of this encounter (statuses as of 12/29/2022) Active Problems Problem Noted Date AAA (abdominal [...] as of this encounter (statuses as of 12/29/2022) Resolved Problems Problem Noted Date Resolved Date [...] as of this encounter (statuses as of 12/29/2022) Immunizations Name Administration Dates Next Due COVID-19 mRNA, LNP-s, No Pre serve, 2-Dose Series ([employer]) 11/01/2020,10/11/2020 Pneumococcal Polysaccharide PPV23 (Pneumovax) documented as of this encounter Social History Tobacco Use Types Packs/Day Years Used Date Smoking Tobacco: Every Day Cigarettes 1 32 Last attempted to quit: 04/28/2013 Vaporizer Smokeless Tobacco: Never Tobacco Cessation:Ready to Q uit: No; Counseling Given: Yes Comments:started smoking age 16, 1 pk qd [...] on file documented as of this encounter Last Filed Vital Signs Vital Sign Reading Time Taken Comments Blood Pressure 138/70 12/14/2022 2:14 PM EDT Pulse 87 12/14/2022 2:14 PM EDT Temperature 36.8 C (98.3 F) 12/14/2022 2:14 PM ED T Respiratory Rate 16 12/14/2022 2:14 PM EDT Oxygen Saturation 97% 12/14/2022 2:14 PM EDT Inhaled Oxygen Concentration - - Weight 81.6 kg (179 lb 12.8 oz) 12/14/2022 2:14 PM EDT Height 185.4 cm (6' 0.99") 12/14/2022 2:14 PM ED T Body Mass Index 23.73 12/14/2022 2:14 PM EDT documented in this encounter Patient Instructions * Patient Instructions* Genoveva Almaguer LPN - 12/14/2022 2:13 PM EDT Patient Instructions - Fall Prevention (This education is for all patients over 65 regardless of symptoms) Remember to take your current medications as prescribed. In order to prevent falls, you are encouraged to: Exercise Utilize assistive/adaptive devices Avoid multifocal lenses when walking Avoid hazards in home Maintain a regular toileting schedule Any questions please contact our office. Preventing Falls in the Home (This education is for all patients over 65 regardless of symptoms) As you get older, falls are more likely. Thats because your reaction time slows. Your muscles and joints may also get stiffer, making them less flexible. Illness, medications, and vision changes can also affect your balance. A fall could leave you unable to live on your own. To make your home safer, follow these tips: Floors Put nonskid pads under area rugs Remove throw rugs Replace worn floor coverings Tack carpets firmly to each step on carpeted stairs. Put nonskid strips on the edges of uncarpeted stairs Keep floors and stairs free of clutter and cords Arrange furniture so there are clear pathways Clean up any spills right away Bathrooms Install grab bars in the tub or shower Apply nonskid strips or put a nonskid rubber mat in the tub or shower Sit on a bath chair to bathe Use bathmats with nonskid backing Lighting Keep a flashlight in each room Put a nightlight along the pathway between the bedroom and the bathroom MVP Interactive Patient Education Copyright 2008 - 2010 [employer] except where otherwise noted Preventing Falls: Exercises to Improve Balance, Flexibility, Strength, and Staying Power (This education is for all patients over 65 regardless of symptoms) Certain types of exercises may help make you less likely to fall. Try the ones below. Or do other exercises that your healthcare provider suggests. Depending on your health, you may need to start slowly. Dont let that stop you. Even small amounts of exercise can help you. Be sure to talk to yourhealthcare provider before starting any exercise program. Improve Balance Many types of exercise can help improve balance. Matt chi and yoga are good examples. Heres another one to try. You can do it anytime and almost anywhere. Stand next to a counter or solid support. Push yourself up onto your tiptoes. Hold for 5 seconds. If you start to lose your balance, hold on to the counter. Rest and repeat 5 times. Work up to holding for 20 to 30 seconds, if you can. Increase Flexibility Being more flexible makes it easier for you to move around safely. Try exercises like the seated hamstring stretch. Sit in a chair and put one foot on a stool. Straighten your leg and reach with both hands down either side of your leg. Reach as far down your leg as you can. Hold for about 20 seconds. Go back to the starting position. Then repeat 5 times. Switch legs. Build Strength Resistance exercises help build strength. You can do them without equipment. Or you can use weights, elastic bands, or special machines. One such exercise is called the biceps curl. You can hold a 1 pound weight or even a can of soup. Do this exercise at least 3 times a week. Strive for everyday. Sit up straight in a chair. Keep your elbow close to your body and your wrist straight. Bend your arm, moving your hand up to your shoulder. Then slowly lower your arm. Repeat 5 times. Switch to the other arm. Build Your Staying Power Aerobic exercises make your heart and lungs stronger so you can keep moving longer. Walking and swimming are two of the best types of exercises you can do. Using a stationary bike is great, too. Find an aerobic exercise that you enjoy. Start slowly and build up. Even 5 minutes is helpful. Aimfor a goal of 30 minutes, at least 3 times a week. You dont have to do 30 minutes in one session. Break it up and walk a little throughout the day. More Helpful Tips Start easy. Slowly work up to doing more. Talk with your healthcare provider about the best exercises for you. Call senior centers or health clubs about exercise programs. If needed, have a family member watch you walk every so often to check your stability. Exercise with a friend. Choose an activity you both enjoy. Try exercises that you can do anytime, anywhere. Here are two examples. Have someone with you when you first try these: Practice walking by placing one foot right in front of the other. Stand up and sit down 10 times. Repeat this throughout the day. Gordon Patient Education Copyright 2009 - 2010 [employer] except where otherwise noted. Preventing Falls: Moving Safely Using a Cane or Walker (This education is for all patients over 65 regardless of symptoms) Keep the cane away from your feet so you dont trip. A walking aid, such as a cane or walker, can help you stay more independent and avoid falls. Remember to keep your walking aid within easy reach when youre in a chair or in bed. And learn how to use it safely so you dont injure yourself. Using a Cane If you have a stronger side, hold the cane on that side. 17. Get your balance. 18. Move the cane and your weaker leg forward. 19. Support your weight on both the cane and your weaker side. 20. Step with your stronger leg. 21. Start again from step 1. If youre using a folding walker, be sure you know how to lock it open. Check that its locked open before each use. Using a Walker 7. Roll the walker (or lift it, if youre using one without wheels) forward about 12 inches. 8. Step forward with your weaker leg first. 9. Use the walker to help keep your balance. 10. Bring your other foot forward to the center of the walker. 11. Start again from step 1. Helpful Tips Check with your healthcare provider about the right walking aid to use. Ask about a walker with a seat attached. Check the tips of your cane or walker to make sure they have nonskid covers. Move slowly from room to room. Dont thomas. Sit down to get dressed. Use a ruby pack or backpack to keep your hands free. Get help for jobs that mean climbing, even on a stepstool. [employer] Patient Education Copyright 2008 - 2010 [employer] except where otherwise noted. Treating Urinary Incontinence in Men (This education is for all patients over 65 regardless of symptoms) You can't always control the release of urine. You may leak urine. Or you may not be able to hold your urine until you can get to a bathroom. This is called urinary incontinence. The problem can be managed. Talk to your doctor about your treatment options. Taking Medications Prescription medications may help you. They may: Help the sphincter to work better. (This is the muscle that closes to keep urine from leaking out of the bladder.) Help stop the bladder from bo too often to push urine out. Help the bladder muscles contract with more force. Help relax the sphincter muscle and allow urine to flow more freely. Making Changes to Your Routine Certain changes in your daily routine may help. These include: Avoiding caffeine and alcohol. Using timed voiding. This is following a schedule for drinking fluids and urinating. Doing Kegel exercises daily. These exercises involve tightening the muscles in your sphincter and around your bladder to help strengthen them. Your doctor can explain how to do them. Using a Catheter A catheter is a narrow tube that is inserted through the urethra into the bladder. It drains urine.A condom catheter covers the penis. It channels urine into a collection bag. It is worn most of thetime. Intermittent catheterization means inserting a catheter to drain the bladder, then removing it. This is done on a regular schedule. Having Surgery If other options don't work, surgery may be recommended. If surgery is an option, your healthcare provider can discuss it with you and explain its risks and benefits. Healing After Prostate Surgery Surgery on the prostate gland can cause incontinence. Most often, the incontinence is only for a short time. It clears up when healing is complete. Very rarely, prostate surgery can result in permanent incontinence. documented in this encounter Progress Notes * Lior Maher DO - 12/14/2022 2:47 PM EDT Images from the original note were not included. History of Present Illness Nino Stern is a 67 year old male that presents for Physical-Exam (Pt here for annual CPE. Pt states that he has been more unstable on his feet ) Patient is a 67-year-old male with history of hypertension, diabetes mellitus type 2, dyslipidemia,lumbar spinal stenosis, abdominal aortic aneurysm, and central vein occlusion of left eye. Patient feels generally well and is following a diet exercise program. Patient denies polyuria or polydipsia. Patient denies hypoglycemia. 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 Patient denies muscle weakness or numbness.Patient denies fatigue fever chills or sweats. Patient denies nasal con gestion sore throat or earache. Patient denies cough or sputum. Patient denies chest pain shortnessbreath palpitations or edema. Patient denies abdominal pain nausea vomiting diarrhea constipation. Patient denies urinary frequency dysuria urgency or hematuria. Patient denies headache or dizziness.Patient denies skin rash or lesions. Review systems otherwise negative Physical Exam Vitals: 12/14/22 1414 Temp: 36.8 C (98.3 F) Pulse: 87 Resp: 16 SpO2: 97% BP: 138/70 BMI: 23.73 BP Readings from Last 3 Encounters: 12/14/22 138/70 06/12/22 156/78 04/18/22 181/109 Wt Readings from Last 3 Encounters: 12/14/22 81.6 kg (179 lb 12.8 oz) 06/12/22 81.1 kg (178 lb 11.2 oz) 04/16/22 75.6 kg (166 lb 11.2 oz) BMI Readings from Last 3 Encounters: 12/14/22 23.73 kg/m 06/12/22 23.58 kg/m 04/16/22 22.00 kg/m General: alert, healthy and no distress Head: Normocephalic, No masses, lesions, tenderness or abnormalities Eye Exam: PERRLA, extraocular movements intact, conjunctiva are pink and non- injected, sclera clear Ears: External ears normal, Canals clear, TM's Normal Nose: no mucosal erythema, no mucosal edema, no purulent discharge Oropharynx: no exudate, no erythema, lips, buccal mucosa, and tongue normal and mucous membranes are moist Neck: supple, no adenopathy, no bruits, thyroid normal size, non-tender, without nodularity Lymph: no palpable lymphadenopathy Heart: regular rate & rhythm, no murmur and no gallops Lungs: chest symmetric with normal AP diameter, no chest deformities noted, no chest wall tenderness, lungs clear to auscultation Pulses: carotid=2/4 w/o bruits Abdomen: abdomen soft, non-tender, normal bowel sounds and no masses or organomegaly Back: back symmetric, no curvature, no costovertebral angle tenderness, lumbar paravertebral musclespasm and tenderness decreased range of motion lumbar flexion L1-L5 Extremities: less than 2 second capillary refill, no joint deformities, effusion, or inflammation Neuro Exam: alert & oriented x 3 with fluent speech, no focal motor/sensory deficits, Skin: skin color, texture, turgor are normal, no rashes or significant lesions I have reviewed the following results: None Assessment and Plan HTN, goal below 130/80 Continue present medication Amlodipine 5 mg 1 tab once daily Lisinopril 2.5 mg 1 tab once daily - COMPREHENSIVE METABOLIC PANEL; Future - CBC WITH WBC DIFFERENTIAL; Future - ALBUMIN / CREATININE RATIO, URINE; Future - ALBUMIN / CREATININE RATIO, URINE Type 2 diabetes mellitus without complication, with long-term current use of insulin (HCC) Continue present medication Metformin 1000 mg 1 tab twice daily Jardiance 10 mg 1 tab once Novolin 70 30 18 units 18 units with breakfast and 15 units with dinner - HEMOGLOBIN A1C; Future - COMPREHENSIVE METABOLIC PANEL; Future - ALBUMIN / CREATININE RATIO, URINE; Future - PODIATRY REFERRAL OP - ALBUMIN / CREATININE RATIO, URINE Dyslipidemia Rosuvastatin 10 mg 1 tab once daily - COMPREHENSIVE METABOLIC PANEL; Future - LIPID PANEL WITH DIRECT LDL IF TG IS HIGH; Future Spinal stenosis of lumbar region with neurogenic claudication Modified home therapeutic exercise Avoid strenuous activities, no heavy lifting Tylenol OTC as directed p.r.n. Abdominal aortic aneurysm (AAA) without rupture, unspecified part (HCC) - VAS AORTIC DUPLEX EVAL-COMPLETE Central retinal vein occlusion of left eye, unspecified complication status Continue present medical therapy Follow with ophthalmology Risk and functional assessment Wrap-Up Time: I spent a total of 40-54 minutes (exact time 40 mins) on the date of service in preparation, delivery, and documentation of the care provided to Rj Stern excluding any time spent in the performance of separately billed services. * Genoveva Almaguer LPN - 12/14/2022 2:13 PM EDT Fall Risk Plan of Care Documentation: - Current medications reconciled Patient encouraged to: - Exercise - Provide education materials for Core strengthening - Utilize assistive/adaptive devices - Provide education materials - Avoid multifocal lenses when walking - Avoid hazards in home - Provide education materials - Maintain a regular toileting schedule Genoveva Almaguer LPN 12/14/2022 documented in this encounter Plan of Treatment Upcoming Encounters Date Type Specialty Care Team Description 02/12/2023 Office Visit Ophthalmology Hector Wise DO [address] [place] [address] 03/15/2023 Office Visit Pharmacy [facility] [address] [place] [address] 06/24/2023 Office Visit Family Medicine Lior Maher, [address] [place] [address] Scheduled Referrals Name Type Priority Associated Diagnoses Orde r Schedule PODIATRY REFERRAL OP Referral Within 10 days (routine) Type 2 diabetes mellitus without complication, with long-term current use of insulin (HCC) Ordered: 12/14/2022 Health Maintenance Due Date Last Done Comments [...] 12/27/2020 11/01/2020, 10/11/2020 CKD PHOS USE SMARTSET 39292 10/03/2021 03/02/2021, 10/25/2018, 12/07/2016, Additional history exists [...] , 12/28/2020, 10/29/2018 CKD HGB USE SMARTSET 65672 12/19/202312/18, 12/18/2022, 01/12/2022, Additional history exists Lipid Panel 12/19/2027 12/18/2022, 08/0 03/2021, 01/15/2020, Additional history exists LUNG CANCER SCREENING - USE SMARTSET 39879 Completed 02/18/2020, 10/31/2018 ABDOMINAL AORTIC ANEURYSM (AAA) [...] Not on filedocumented as of this encounter Procedures Procedure Name Priority Date/Time Associated Diagnosis Comments VASC AORTIC DUPLEX EVAL-COMPLETE Routine 12/18/2022 9:28 AM EDT Abdominal aortic aneurysm (AAA) without rupture, unspecified part (HCC) ALBUMIN / CREATININE RATIO, URINE Routine 12/14/2022 2:52 PM EDT Type 2 diabetes mellitus without complication, with long-term current use of insulin (HCC) HTN, goal below 130/80 documented in this encounter Results * (ABNORMAL) LIPID PANEL WITH DIRECT LDL IF TG IS HIGH (12/18/2022 9:36 AM EDT) Triglycerides 188(H) <=174 mg/dL 12/18/2022 5:38 PM EDT [facility] [place] Comment: Triglyceride Reference Ranges (mg/dL): <150 Acceptable 150-174 Borderline high 175-499 High >=500 Very high Cholesterol 184 <200 mg/dL 12/18/2022 5:38 PM EDT [facility] [place] Comment: Total Cholesterol Reference Ranges (mg/dL): <200 Desirable 200-239 Borderline high >=240 High HDL Cholesterol 33(L) >39 mg/dL 5:38 PM EDT [facility] [place] Comment: HDL Cholesterol Reference Ranges (mg/dL): >=60 High (Desirable) <50 Low (Undesirable) For Females <40 Low (Undesirable) For Males Non-HDL Cholesterol 151 <=159 mg/dL 12/18/2022 5:38 PM EDT [facility] [place] Comment: Non-HDL Cholesterol Reference Range (mg/dL): <100 Target level for high risk ASCVD patient <130 Optimal for general population 130-159 Near optimal for general population 160-189 Borderline High 190-219 High >=220 Very High LDL Cholesterol 113 <=129 mg/dL 12/18/2022 5:38 PM EDT [facility] [place] Comment: LDL Cholesterol Reference Ranges (mg/dL): <70 Target level for high risk ASCVD patient <100 Optimal for general population 100-129 Near optimal for general population 130-159 Borderline high 160-189 High >=190 Very high Blood Venous blood specimen / Unknown Venipuncture / Unknown 12/18/2022 9:36 AM EDT 12/18/2022 9:36 AM EDT Lior Maher DO LAB BLOOD ORDERABLES [facility] [place] [address] [place] [address] * (ABNORMAL) COMPREHENSIVE METABOLIC PANEL (12/18/2022 9:36 AM EDT) BUN 29(H) 6 - 20 mg/dL 12/18/2022 10:47 AM EDT LAB[facility]ATORY [place] 57-10 Creatinine 1.3(H) 0.6 - 1.2 mg/dL 12/18/2022 10:47 AM EDT LAB[facility]ORY [place] 57-10 Estimated Glomerular Filtration Rate 62 >=60 mL/min 12/18/2022 10:47 AM EDT LAB[facility]ATORY [place] 57-10 Comment:eGFR is calculated b ased on the CKD-EPI 2020 equation Sodium 141 135 - 146 mmol/L 12/18/2022 10:47 AM EDT [facility] 57-10 Potassium 4.6 3.5 - 5.1 mmol/L 12/18/2022 10:47 AM EDT [facility] 57-10 Chloride 104 98 - 107 mmol/L 12/18/2022 10:47 AM EDT [facility] CO2 23 22 - 32 mmol/L 12/18/2022 10:47 AM EDT [facility] 57-10 Anion Gap 14 7 - 15 mmol/L 12/18/2022 10:47 AM EDT [facility] Glucose 162(H) 70 - 120 mg/dL 12/18/2022 10:47 AM EDT [facility] 57-10 Albumin 4.5 3.8 - 5.0 g/dL 12/18/2022 10:47 AM EDT [facility] AST 29 10 - 50 U/L 12/18/2022 10:47 AM EDT [facility] Alkaline Phosphatase 80 35 - 130 U/L 12/18/2022 10:47 AM EDT [facility] Bilirubin, Total 0.6 <=1.2 mg/dL 12/18/2022 10:47 AM EDT [facility] Calcium 10.1 8.4 - 10.2 mg/dL 12/18/2022 10:47 AM EDT [facility] Protein 7.5 6.0 - 8.3 g/dL 12/18/2022 10:47 AM EDT [facility] ALT 27 10 - 50 U/L 12/18/2022 10:47 AM EDT [facility] Blood Venous blood specimen / Unknown Venipuncture / Unknown 12/18/2022 9:36 AM EDT 12/18/2022 9:36 AM EDT Lior Maher DO LAB BLOOD ORDERABLES [facility] 57-10 [address] [facility] [place] [address] * (ABNORMAL) HEMOGLOBIN A1C (12/18/2022 9:36 AM EDT) Hemoglobin A1C 8.4(H) 4.0 - 5.6 % 12/18/2022 3:46 PM EDT [facility] [place] Comment:The use of HbA1c to monitor glycemic status is based on normal hemoglobin and HbA composition. This test should not be used in patients with abnormal hemoglobin that affects the half life of the red blood cell or the in vivo glycation rates. Estimated Average Glucose 194(H) <126 mg/dL 12/18/2022 3:46 PM EDT [facility] [place] Blood Venous blood specimen / Unknown Venipuncture / Unknown 12/18/2022 9:36 AM EDT 12/18/2022 9:36 AM EDT Lior Borjao DO LAB BLOOD ORDERABLES [facility] [place] [address] [place] [address] * [facility] AORTIC DUPLEX EVAL-COMPLETE (12/18/2022 9:28 AM EDT) Anatomical Region Laterality Modality Abdomen, Vascular Ultrasound Impressions 12/18/2022 11:12 AM EDT : There is evidence of a 4.1 cm x 4.1 cm abdominal aortic aneurysm. Color Doppler imaging demonstrates flow consistent with a patent lumen at and distal to the aortic aneurysm. Narrative 12/18/2022 11:12 AM EDT VASCULAR LAB RESULTS DATE OF EXAM: 12/18/22 PRESENTING CONDITIONS: AAA screen This is an interpretation of an exam performed at [facility]. Immediately before proceeding with the vascular lab [...] artery measures 1.7 centimeters by 1.7 centimeters. Lior Maher DO RAD VASCULAR * (ABNORMAL) ALBUMIN / CREATININE RATIO, URINE (12/14/2022 2:52 PM EDT) Albumin, Random Urine 42.14 mg/dL 12/15/2022 12:35 AM EDT [facility] [place] Creatinine, Random Urine 102 mg/dL 12/15/2022 12:35 AM EDT [facility] [place] Albumin / Creatinine Ratio, Urine 413(H) <30 mg/g Creat 12/15/2022 12:35 AM EDT LAB[facility]ATORY [facility] [place] Urine Urine specimen obtained by clean catch procedure / Unknown Non-blood Collection / Unknown 12/14/2022 2:52 PM EDT 12/14/2022 3:00 PM EDT Narrative LAB[facility]ATORY [facility] [place] - 12/15/2022 12:35 AM EDT Normal: <30 mg/g creatinine High: 30-300 mg/g creatinine Very High: >300 mg/g creatinine Nephrotic: >2200 mg/g creatinine Lior Maher LAB URINE ORDERABLES LAB[facility]ATORY [facility] [place] 100 [facility] [place] [address] documented in this encounter Visit Diagnoses Diagnosis HTN, goal below 130/80- Primary Unspecified essential hypertension Type 2 diabetes mellitus without complication, with long-term current use of insulin (HCC) Dyslipidemia Other and unspecified hyperlipidemia Spinal stenosis of lumbar region with neurogenic claudication Spinal stenosis, lumbar region, with neurogenic claudication Abdominal aortic aneurysm (AAA) without rupture, unspecified part (HCC) Central retinal vein occlusion of left eye, unspecified complication status Risk and functional assessment Screening for unspecified condition documented in this encounter Care Teams Communications Designer Relationship Specialty Start Date End Date Lior Maher DO [address] [place] [address] PCP - General Family Medicine 10/03/20 documented as of this encounter
--- OUTSIDE RECORDS SUMMARY | 2023-06-16 09:08 | External Medical Summary | Summary of Care ---
Author Name Unknown Organization [facility] Address [address] [facility] [address] Phone [phone] Care Team Providers Care Post Office Markup Clerk Name Role Phone Lior Merritt DO Primary Care Provider Reason for Visit * Reason Onset Date Comments Advice 12/20/2022 Encounter Details Date Type Department Care Team Description 12/20/2022 Telephone Family Practice [facility] [address] [place] [address] Lior Merritt DO [address] [place] [address] Advice Allergies Active Allergy Reactions Severity Noted [...] hemoglobin A1c goal of less than 7.0% ([facility]) Inject under the skin 2 times [...] encounter Miscellaneous Notes * Telephone Encounter - Osiris Mistry LPN - 12/25/2022 12:25 PM EDT Printed copy placed at check in for seed cone picker * Telephone Encounter - MEAGAN Lozano - 12/25/2022 10:36 AM EDT Pt calling back in asking for a hard copy, will be in to the office on to seed cone picker hard copy * Telephone Encounter - [...] set up program for pt Phone number [phone] Please advise Thank you for your assistance Joelle White Medical Office Clerk II Pharmacy Refill Call Center 12/20/2022,4:40 PM documented in this encounter Plan of Treatment Upcoming Encounters Date Type Specialty Care Team Description 02/12/2023 Office Visit Ophthalmology Hector Wise DO [address] [place] [address] 03/15/2023 Office Visit Pharmacy [facility] [address] [place] [address] 06/24/2023 Office Visit Family Medicine Lior Merritt DO [address] [place] [address] Health Maintenance Due Date Last Done Comments DISCUSS TOBACCO CESSATION (REFER TO SMARTSET #6428) 1955 DXA Scan 1953 DTaP,Tdap,and Td Vaccines (1 - Tdap) 1972 Cologuard 1998 Fecal Occult Blood Test 1998 Sigmoidoscopy 1998 Zoster Vaccines (1 of 2) 2003 Pneumococcal Vaccine: 65+ Years (2 - PCV) 03/14/2007 03/14/2006 Colonoscopy 12/01/2019 11/30/2009 Colorectal Cancer Screening 12/01/2019 COVID-19 Vaccine (3 - Booster for Pfizer series) 12/27/2020 11/01/2020, 10/11/2020 CKD PHOS USE SMARTSET 28930 10/03/2021 03/0 02/2021, 10/25/2018, 12/07/2016, Additional history [...] , 12/28/2020, 10/29/2018 CKD HGB USE SMARTSET 82348 12/19/202312/18, 12/18/2022, 01/12/2022, Additional history exists Lipid Panel 12/19/2027 12/18/2022, 08/0 03/2021, 01/15/2020, Additional history exists LUNG CANCER SCREENING - USE SMARTSET 97192 Completed 02/18/2020, 10/31/2018 ABDOMINAL AORTIC ANEURYSM (AAA) [...] filedocumented as of this encounter Care Teams Post Office Markup Clerk Relationship Specialty Start Date End Date Lior Merritt DO [address] [place] [address] PCP - General Family Medicine 10/03/20 documented as of this encounter
--- OUTSIDE RECORDS SUMMARY | 2023-06-16 09:08 | External Medical Summary | Summary of Care ---
Author Name Unknown Organization [facility] Address [address] [place] [address] Phone [phone] Care Team Providers Care Access Services Representative Name Role Phone Lior Merritt DO Primary Care Provider Reason for Visit * Reason Onset Date Comments Appointment 01/18/2023 recall Encounter Details Date Type Department Care Team Description 01/18/2023 Telephone Vascular Surg [facility] [address] [place] [address] Wolf Chappell MD [address], [place] [id number] Appointment (recall) Allergies Active Allergy Reactions Severity Noted Date Comments Amoxicillin-Pot Clavulanate 07/24/20 07 Pruritic rash documented as of this encounter (statuses as of 01/21/2023) Medications Medication Sig Dispensed Refills Start Date [...] hemoglobin A1c goal of less than 7.0% ([facility]) Inject under the skin 2 [...] as of this encounter (statuses as of 01/21/2023) Active Problems Problem Noted Date AAA (abdominal [...] as of this encounter (statuses as of 01/21/2023) Resolved Problems Problem Noted Date Resolved Date [...] as of this encounter (statuses as of 01/21/2023) Immunizations Name Administration Dates Next Due COVID-19 [...] * Telephone Encounter - MEAGAN Caruso - 01/21/2023 9:31 AM EDT Called patient x2 to schedule his 2 year appt Left message rr * Telephone Encounter - MEAGAN Caruso [...] Lives in [place] Please advise [facility] * Telephone Encounter - MEAGAN Caruso - 01/18/2023 7:52 AM EDT lmam ptc to schedule 01/17/23 LL1 documented in this encounter Plan of Treatment Upcoming Encounters Date Type Specialty Care Team Description 02/12/2023 Office Visit Ophthalmology Hector Wise, DO [address] [place] [address] 03/15/[address] [facility] [address] [place] [address] 06/24/2023 Office Visit Family Medicine Lior Merritt DO [address] [place] [address] Health Maintenance Due Date Last Done Comments DISCUSS TOBACCO CESSATION (REFER TO SMARTSET #1531) 1955 DXA Scan 1953 DTaP,Tdap,and Td Vaccines (1 - Tdap) 1972 Cologuard 1998 Fecal Occult Blood Test 1998 Sigmoidoscopy 1998 Zoster Vaccines (1 of 2) 2003 Pneumococcal Vaccine: 65+ Years (2 - PCV) 03/14/2007 03/14/2006 Colonoscopy 12/01/2019 11/30/2009 Colorectal Cancer Screening 12/01/2019 COVID-19 Vaccine (3 - Pfizer series) 12/27/2020 11/01/2020, 10/11/2020 CKD PHOS USE SMARTSET 78383 10/03/2021 03/02/2021, 10/25/2018, 12/07/2016, Additional history exists [...] , 12/28/2020, 10/29/2018 CKD HGB USE SMARTSET 12640 12/19/202312/18, 12/18/2022, 01/12/2022, Additional history exists Lipid Panel 12/19/2027 12/18/2022, 08/0 03/2021, 01/15/2020, Additional history exists LUNG CANCER SCREENING - USE SMARTSET 10596 Completed 02/18/2020, 10/31/2018 ABDOMINAL AORTIC ANEURYSM (AAA) [...] filedocumented as of this encounter Care Teams Access Services Representative Relationship Specialty Start Date End Date Lior Merritt DO [address] [place] [address] PCP - General Family Medicine 10/03/20 documented as of this encounter
--- OUTSIDE RECORDS SUMMARY | 2023-06-16 09:09 | External Medical Summary ---
Author Name Unknown Address Unknown Organization K01:LABORATORY [address] [facility] [address] Laboratory Report Ordering Provider Test Date Status RAFAL ÁLVAREZ 12/18/2022 09:36:16 Final Observation Date Value Abnormality Reference (Units ) Status Nuclear IgG Ab [Ratio] in Serum by Immunoassay 12/18/2022 09:36:16 Negative Negative Final DNA double strand Ab [Presence] in Serum 12/18/2022 09:36:16 Negative Negative Final DOUBLE STRANDED DNA VALUE - [facility] 12/18/2022 09:36:16 3.0 <20 (IU/mL) Final Extractable nuclear Ab [Presence] in Serum 12/18/2022 09:36:16 Negative Negative Final Nuclear IgG Ab [Ratio] in Serum by Immunoassay 12/18/2022 09:36:16 0.3 <0.7 (Ratio) Final Screening is based on detect ion of the following antibodies: dsDNA, U1-ORTHOPEDIC CODER (RNP70, A, C), SS-A/Ro, SS-B / La, Anh-1, Scl-70, Centromere B proteins and Sm proteins. In conjunction with clinical findings, this can aid in the diagnosis of systemic lupus erythematosous (SLE), mixed connective tissue disease (MCTD), Sjogren's syndrome, scleroderma and polymyositis/dermatomyositis.
However, a negative result does not rule out systemic rheumatic or other autoimmune disease. If clinically suspected, further evaluation and testing may be necessary. Please consult with Rheumatology Department.
Methodology: Fluorescent Enzyme Immunoassay. Performing Location LABORATORY [address] [facility] [address]
--- OUTSIDE RECORDS SUMMARY | 2023-06-16 09:09 | External Medical Summary ---
Author Name Unknown Address Unknown Organization K01:LABORATORY C - [address] [place] [address] Laboratory Report Ordering Provider Test Date Status RAFAL ÁLVAREZ 12/18/2022 09:36:16 Final Observation Date Value Abnormality Reference (Units ) Status Iron 12/18/2022 09:36:16 71 45-176 (ug /dL) Final Performing Location LABORATORY [facility] - [address] [place] [address]
--- OUTSIDE RECORDS SUMMARY | 2023-06-16 09:09 | External Medical Summary ---
Author Name Unknown Address Unknown Organization K01:[facility]ATORY [facility] [place] - [address] [place] [address] Laboratory Report Ordering Provider Test Date Status JESENIA BRADSHAW 12/18/2022 09:36:16 Final Observation Date Value Abnormality Reference (Units ) Status MYCODE SPECIMEN-SST 12/18/2022 09:36:16 Freezing of extracted DNA, whole blood and/or serum. Final Performing Location LABORATORY C - [address] [place] [address]
--- OUTSIDE RECORDS SUMMARY | 2023-06-16 09:09 | External Medical Summary ---
Author Name Unknown Address Unknown Organization K0G:LABORATORY [facility] [address] - [address] [place] [address] Laboratory Report Ordering Provider Test Date Status GEO GONZALEZ 12/18/2022 09:36:16 Final Observation Date Value Abnormality Reference (Units ) Status BUN 12/18/2022 09:36:16 29 Above high normal 6-20 (mg/dL) Final Creatinine 12/18/2022 09:36:16 1.3 Above high normal 0.6-1.2 (mg/dL) Final Glomerular filtration rate/1.73 sq M.predicted [Volume Rate/Area] in Serum, Plasma or Blood by Creatinine-based formula (CKD-EPI) 12/18/2022 09:36:16 62 >=60 (mL/min) Final eGFR is calculated based on the CKD-EPI 2020 equation SODIUM 12/18/2022 09:36:16 141 135-146 (m mol/L) Final Potassium 12/18/2022 09:36:16 4.6 3.5-5.1 (m mol/L) Final Cl 12/18/2022 09:36:16 104 98-107 (mm ol/L) Final CO2 12/18/2022 09:36:16 23 22-32 (mmo l/L) Final Anion gap 12/18/2022 09:36:16 14 7-15 (mmol /L) Final Glucose 12/18/2022 09:36:16 162 Above high normal 70 -120 (mg/dL) Final Albumin 12/18/2022 09:36:16 4.5 3.8-5.0 (g /dL) Final AST (Aspartate aminotransferase) 12/18/2022 09:36:16 29 10-50 (U/L) Fin al Alk Phos 12/18/2022 09:36:16 80 35-130 (U/ L) Final Bilirubin, Total 12/18/2022 09:36:16 0.6 <=1 .2 (mg/dL) Final Calcium 12/18/2022 09:36:16 10.1 8.4-10.2 ( mg/dL) Final Protein 12/18/2022 09:36:16 7.5 6.0-8.3 (g /dL) Final ALT (Alanine aminotransferase) 12/18/2022 09:36:16 27 10-50 (U/L) Carlos hutton Performing Location LABORATORY [facility] [address] - [address] [facility] [address]
--- OUTSIDE RECORDS SUMMARY | 2023-06-16 09:09 | External Medical Summary ---
Author Name Unknown Address Unknown Organization : Laboratory Report Ordering Provider Test Date Status RAFAL ÁLVAREZ 12/18/2022 09:36:16 Final Observation Date Value Abnormality Reference (Units ) Status Ceruloplasmin 12/18/2022 09:36:16 25 18-36 (mg/dL) Final
Test Performed at:
[facility]
[address]
[place] [address]
Sonu William M.D., Ph.D.,Director of Laboratories Performing Location
--- OUTSIDE RECORDS SUMMARY | 2023-06-16 09:09 | External Medical Summary ---
Author Name Unknown Address Unknown Organization K01:LABORATORY [facility] [place] - [address] [facility] [place] [address] Laboratory Report Ordering Provider Test Date Status EGO GONZALEZ 12/18/2022 09:36:16 Final Observation Date Value Abnormality Reference (Units ) Status Triglyceride 12/18/2022 09:36:16 188 Above high normal <=174 (mg/dL) Final Triglyceride Reference Range s (mg/dL):
<150 Acceptable
150-174 Borderline high
175-499 High
>=500 Very high Cholesterol 12/18/2022 09:36:16 184 <200 (mg /dL) Final Total Cholesterol Reference Ranges (mg/dL):
<200 Desirable
200-239 Borderline high
>=240 High HDL 12/18/2022 09:36:16 33 Below low normal >39 (mg/dL) Final HDL Cholesterol Reference Ra nges (mg/dL):
>=60 High (Desirable)
<50 Low (Undesirable) For Females
<40 Low (Undesirable) For Males NON-HDL CHOLESTEROL 12/18/2022 09:36:16 151 <=159 (mg/dL) Final Non-HDL Cholesterol Referenc e Range (mg/dL):
<100 Target level for high risk ASCVD patient
<130 Optimal for general population
130-159 Near optimal for general population
160-189 Borderline High
190-219 High
>=220 Very High LDL, (calculated) 12/18/2022 09:36:16 113 <= 129 (mg/dL) Final LDL Cholesterol Reference Ra nges (mg/dL):
<70 Target level for high risk ASCVD patient
<100 Optimal for general population
100-129 Near optimal for general population
130-159 Borderline high
160-189 High
>=190 Very high Performing Location LABORATORY [facility] [place] - [address] [facility] [address]
--- OUTSIDE RECORDS SUMMARY | 2023-06-16 09:09 | External Medical Summary ---
Author Name Unknown Address Unknown Organization : Laboratory Report Ordering Provider Test Date Status RAFAL ÁLVAREZ 12/18/2022 09:36:16 Final Observation Date Value Abnormality Reference (Units ) Status Alpha-1 antitrypsin 12/18/2022 09:36:16 163 83-199 (mg/dL) Final
Test Performed at:
[facility]
[address]
[place] [address]
Sonu William M.D., Ph.D.,Director of Laboratories Performing Location
--- OUTSIDE RECORDS SUMMARY | 2023-06-16 09:09 | External Medical Summary | Summary of Care ---
Author Name Unknown Organization [facility] Address [address] [facility] [address] Phone [phone] Care Team Providers Care Social Sciences Lecturer Name Role Phone Lior Merritt DO Primary Care Provider + [phone] Reason for Visit * Reason Comments Outpatient Testing Encounter Details Date Type Department Care Team Description 12/18/2022 Laboratory [facility], [facility] [place] [address] [facility] [address] Elevated LFTs; [employer] Other*[id number]; Tick bite, unspecified site, initial encounter; Type 2 diabetes mellitus without complication, with long-term current use of insulin (HCC); HTN, goal below 130/80; Dyslipidemia Allergies Active Allergy Reactions Severity Noted Date Comments Amoxicillin-Pot Clavulanate 07/24/20 07 Pruritic rash documented as of this encounter (statuses as of 12/18/2022) Medications Medication Sig Dispensed Refills Start Date [...] A1c goal of less than 7.0% ([facility]) Inject under the skin 2 times [...] as of this encounter (statuses as of 12/18/2022) Active Problems Problem Noted Date AAA (abdominal [...] as of this encounter (statuses as of 12/18/2022) Resolved Problems Problem Noted Date Resolved Date [...] 05/14/2008 07/31/2018 HTN, goal below 140/90 03/08/2008 01/27/201 0 Overview: Per HTN Taxonomy. Type 2 diabetes mellitus wit h hemoglobin A1c goal of less than 7.0% 10/09/2005 05/26/2009 Overview: Per Diabetes Taxonomy. ICD-10 update of inactive term Dyslipidemia, goal to be determined 10/09/2005 07/07/2009 Overview: Per Lipid Taxonomy. documented as of this encounter (statuses as of 12/18/2022) Immunizations Name Administration Dates Next Due COVID-19 [...] Wise DO [address] [place] [address] 03/15/2023 Office Visit Pharmacy [facility] [address] [place] [address] 06/24/2023 Office Visit Family Medicine Lior Merritt DO [address] [place] [address] Pending Results Name Type Priority Associated Diagnoses Date /Time [id number], QN Lab Routine Elevated LFTs 12/18/2022 9:36 AM EDT ANTINUCLEAR ANTIBODY (NUVIA) EIA SCREEN WITH REFLEX AB QUANT Lab Routine Elevated LFTs 12/18/2022 9:36 AM EDT CERULOPLASMIN Lab Routine Elevated LFTs 12/18/2022 9:36 AM EDT IRON Lab Routine Elevated LFTs 12/18/2022 9:36 AM EDT MYCODE INITIAL ADULT Lab Routine [employer] Other*[id number] 12/18/2022 9:36 AM EDT LYME DISEASE ANTIBODY SCREEN WITH REFLEX TO WESTERN BLOT Lab Routine Tick bite, unspecified site, initial encounter 12/18/2022 9:36 AM EDT HEMOGLOBIN A1C Lab Routine Type 2 diabetes mellitus without complication, with long-term current use of insulin (HCC) 12/18/2022 9:36 AM EDT COMPREHENSIVE METABOLIC PANEL Lab Routine Type 2 diabetes mellitus without complication, with long-term current use of insulin (HCC) HTN, goal below 130/80 Dyslipidemia 12/18/2022 9:36 AM EDT CBC WITH WBC DIFFERENTIAL Lab Routine HTN, goal below 130/80 12/18/2022 9:36 AM EDT LIPID PANEL WITH DIRECT LDL IF TG IS HIGH Lab Routine Dyslipidemia 12/18/2022 9:36 AM EDT ANTINUCLEAR ANTIBODY (NUVIA) SCREEN, KATHLEEN Lab Routine Elevated LFTs 12/18/2022 9:36 AM EDT MYCODE INITIAL ADULT-PINK Lab Routine [employer] Other*[id number] 12/18/2022 9:36 AM EDT MYCODE SST1 Lab Routine [employer] Other*[id number] 12/18/2022 9:36 AM EDT MYCODE SST2 Lab Routine [employer] Other*[id number] 12/18/2022 9:36 AM EDT LYME DISEASE ANTIBODY SCREEN Lab Routine Tick bite, unspecified site, initial encounter 12/18/2022 9:36 AM EDT CBC Lab Routine HTN, goal below 130/80 12/18/2022 9:36 AM EDT DIFFERENTIAL, AUTOMATED Lab Routine HTN, goal below 130/80 12/18/2022 9:36 AM EDT Health Maintenance Due Date Last Done Comments DISCUSS TOBACCO CESSATION (REFER TO SMARTSET #3355) 1955 DXA Scan 1955 DTaP,Tdap,and Td Vaccines (1 - Tdap) 1972 Cologuard 1998 Fecal Occult Blood Test 1998 Sigmoidoscopy 1998 Zoster Vaccines (1 of 2) 2003 Pneumococcal Vaccine: 65+ Years (2 - PCV) 03/14/2007 03/14/2006 Colonoscopy 12/01/2019 11/30/2009 Colorectal Cancer Screening 12/01/2019 COVID-19 Vaccine (3 - Booster for Pfizer series) 12/27/2020 11/01/2020, 10/11/2020 CKD PHOS USE SMARTSET 85102 10/03/2021 03/0 02/2021, 10/25/2018, 12/07/2016, Additional history exists DIABETES-FOOT EXAM 10/03/2021 10/03/2020, 1 , 07/31/2018, Additional history exists AAA MONITORING; CT OR US YEARLY 12/28/2021 12/28/2020, 10/29/2018 AAA ULTRASOUND YEARLY 12/28/2021 12/28/2020, 019 Yearly B-12 03/06/2022 03/06/2021, 10/25/2018 GFR 07/21/2022 01/19/2022, 12/27, 01/11/2022, Additional history exists DIABETES-EYE EXAM 10/27/2022 10/27/2021, , 08/01/2021, Additional history exists HbA1c 12/13/2022 06/15/2022, 12/28, 01/12/2022, Additional history exists CKD HGB USE SMARTSET 43385 01/12/202301/12, 01/11/2022, 06/20/2021, Additional history exists Influenza Vaccine (FLU shot) (Season Ended) 2023 Albumin/Creatinine Ratio 12/15/2023 023, 09/15/2021, 05/05/2019, Additional history exists Depression Screening, Annual for Pts 12 and Over 12/15/2023 12/14/2022 Lipid Panel 03/06/2026 03/06/2021, 12/27, 10/25/2018, Additional history exists LUNG CANCER SCREENING - USE SMARTSET 08149 Completed 02/18/2020, 10/31/2018 ABDOMINAL AORTIC ANEURYSM (AAA) SCREENING Completed 12/28/2020, 10/29/2018 GARDASIL-HPV IMMUNIZATION SERIES Aged Out [...] as of this encounter Visit Diagnoses Diagnosis Elevated LFTs Other abnormal blood chemistry [employer] Other*[id number] Tick bite, unspecified site, initial encounter Type 2 diabetes mellitus without complication, with long-term current use of insulin (HCC) HTN, goal below 130/80 Unspecified essential hypertension Dyslipidemia Other and unspecified hyperlipidemia documented in this encounter Care Teams Social Sciences Lecturer Relationship Specialty Start Date End Date Lior Merritt DO [address] [place] [address] PCP - General Family Medicine 10/03/20 documented as of this encounter
--- OUTSIDE RECORDS SUMMARY | 2023-06-16 09:09 | External Medical Summary | Summary of Care ---
Author Name Unknown Organization [facility] Address [address] [facility] [place] [address] Phone [phone] Care Team Providers Care Surfacer Operator Name Role Phone Lior Merritt DO Primary Care Provider Reason for Visit * Reason Onset Date Comments Appointment 12/19/2022 Encounter Details Date Type Department Care Team Description 12/19/2022 Telephone Family Practice [facility] [address] [place] [address] Lior Merritt DO [address] [place] [address] Appointment Allergies Active Allergy Reactions Severity Noted Date [...] goal of less than 7.0% ([facility]) Inject under the skin 2 times a [...] mRNA, LNP-s, No Pre serve, 2-Dose Series ([employer]) 11/01/2020,10/11/2020 Pneumococcal Polysaccharide PPV23 (Pneumovax) documented as [...] Miscellaneous Notes * Telephone Encounter - MEAGAN Oglesby - 12/21/2022 7:11 AM EDT My g sent * Telephone Encounter - Lior Merritt DO - 12/20/2022 7:56 PM EDT Prescription for rosuvastatin 10 mg 1 tab once daily, Jardiance 10 mg 1 tab once daily sent to pharmacy. Lab studies ordered for BMP, lipid panel, hepatic function panel and hemoglobin A1c in 3 months ordered. Please assist with scheduling * Telephone Encounter - Genoveva Almaguer LPN - 12/20/2022 3:29 PM EDT See myG * Telephone Encounter - Lior Merritt DO - 12/19/2022 9:16 AM EDT Lab studies shows diabetes uncontrolled with elevated hemoglobin A1c 8.4. Lab also shows elevated LDL cholesterol. Lab studies otherwise unremarkable. Advise start Jardiance 10 mg 1 tab once daily Advise start rosuvastatin 10 mg 1 tab once daily. Advise repeat lab studies in 3 months for hemoglobin A1c level, BMP, lipid panel hepatic function panel. documented in this encounter Plan of Treatment Upcoming Encounters Date Type Specialty Care Team Description 02/12/2023 Office Visit Ophthalmology Hector Wise DO [address] [place] [address] 03/15/2023 Office Visit Pharmacy [facility] [address] [place] [address] 06/24/2023 Office Visit Family Medicine Lior Merritt DO [address] [place] [address] Scheduled Orders Name Type Priority Associated Diagnoses Orde r Schedule HEMOGLOBIN A1C Lab Routine Type 2 diabetes mellitus with stage 3a chronic kidney disease, with long-term current use of insulin (HCC) Expected: 03/22/2023 (Approximate), Expires: 12/20/2023 BASIC METABOLIC PANEL Lab Routine Type 2 diabetes mellitus with stage 3a chronic kidney disease, with long-term current use of insulin (HCC) Expected: 03/22/2023 (Approximate), Expires: 12/20/2023 LIPID PANEL WITH DIRECT LDL IF TG IS HIGH Lab Routine Dyslipidemia Expected: 03/22/2023, Expires: 12/21/2023 HEPATIC FUNCTION PANEL Lab Routine Dyslipidemia Expected: 03/22/2023 (Approximate), Expires: 12/20/2023 Health Maintenance Due Date Last Done Comments [...] 12/27/2020 11/01/2020, 10/11/2020 CKD PHOS USE SMARTSET 28740 10/03/2021 03/02/2021, 10/25/2018, 12/07/2016, Additional history exists [...] , 12/28/2020, 10/29/2018 CKD HGB USE SMARTSET 49595 12/19/202312/18, 12/18/2022, 01/12/2022, Additional history exists Lipid Panel 12/19/2027 12/18/2022, 08/0 03/2021, 01/15/2020, Additional history exists LUNG CANCER SCREENING - USE SMARTSET 59411 Completed 02/18/2020, 10/31/2018 ABDOMINAL AORTIC ANEURYSM (AAA) [...] as of this encounter Visit Diagnoses Diagnosis Dyslipidemia- Primary Other and unspecified hyperlipidemia Type 2 diabetes mellitus with stage 3a chronic kidney disease, with long-term current use of insulin (HCC) documented in this encounter Care Teams Surfacer Operator Relationship Specialty Start Date End Date Lior Merritt DO [address] [place] [address] PCP - General Family Medicine 10/03/20 documented as of this encounter
--- OUTSIDE RECORDS SUMMARY | 2023-06-16 09:09 | External Medical Summary ---
Author Name Unknown Address Unknown Organization [id number]:[facility] [place] [facility] [address] [facility] [address] Laboratory Report Ordering Provider Test Date Status GEO GONZALEZ 12/18/2022 09:36:16 Final Observation Date Value Abnormality Reference (Units ) Status B. burgdorferi IgG band pattern 12/18/2022 09:36:16 Positive Abnormal Negative Final Band(s) present: 18, 30, 39, 41, 45, 58, 93 kDa

INTERPRETIVE INFORMATION: B. burgdorferi IgG Immunoblot

For this assay, a positive result is reported when any 5 or more of
the following 10 bands are present: 18, 23, 28, 30, 39, 41, 45, 58,
66, or 93 kDa. All other banding patterns are reported as negative.

Test results reported to [facility]. B. burgdorferi IgM (Western Blot) 12/18/2022 09:36:16 Negati ve Negative Final Band(s) present: NONE
(I nsufficient number of bands for positive result)

INTERPRETIVE INFORMATION: B. burgdorferi IgM Immunoblot

For this assay, a positive result is reported when any 2 or more of
the following bands are present: 23, 39, or 41 kDa. All other banding
patterns are reported as negative. Performing Location [facility] [place] [facility] [address] [facility] [address]
--- OUTSIDE RECORDS SUMMARY | 2023-06-16 09:09 | External Medical Summary ---
Author Name Unknown Address Unknown Organization [id number]:LABORATORY [facility] [place] - [address] [place] [address] Laboratory Report Ordering Provider Test Date Status GEO GONZALEZ 12/18/2022 09:36:16 Final Observation Date Value Abnormality Reference (Units ) Status Borrelia burgdorferi IgG and IgM [Interpretation] in Serum by Immunoassay 12/18/2022 09:36:16 Positive Abnormal Negative Final Test results reported to [facility].

Per CDC guidelines, Western blot testing has been ordered. Performing Location [facility]ATORY [facility] [place] - [address] [place] [address]
--- OUTSIDE RECORDS SUMMARY | 2023-06-16 09:09 | External Medical Summary | Summary of Care ---
Author Name Unknown Organization [facility] Address [address] [facility] [address] Phone [phone] Care Team Providers Care Industrial Specialist Name Role Phone Lior Merritt DO Primary Care Provider Reason for Visit * Reason Onset Date Comments Advice 12/20/2022 Encounter Details Date Type Department Care Team Description 12/20/2022 Telephone Family Practice [facility] [address] [place] [address] Lior Merritt DO [address] [place] [address] Advice Allergies Active Allergy Reactions Severity Noted [...] hemoglobin A1c goal of less than 7.0% ([facility]) Inject under the skin 2 times a [...] set up program for pt Phone number [phone] Please advise Thank you for your assistance Joelle White Surgery Attendant II Pharmacy Refill Call Center 12/20/2022,4:40 PM documented in this encounter Plan of Treatment Upcoming Encounters Date Type Specialty Care Team Description 02/12/2023 Office Visit Ophthalmology Hector Wise T, DO [address] [place] [address] 03/15/2023 Office Visit Pharmacy [facility] [address] [place] [address] 06/24/2023 Office Visit Family Medicine Lior Merritt DO [address] [place] [address] Health Maintenance Due Date Last Done Comments [...] 12/27/2020 11/01/2020, 10/11/2020 CKD PHOS USE SMARTSET 29887 10/03/2021 03/02/2021, 10/25/2018, 12/07/2016, Additional history exists [...] , 12/28/2020, 10/29/2018 CKD HGB USE SMARTSET 93195 12/19/202312/18, 12/18/2022, 01/12/2022, Additional history exists Lipid Panel 12/19/2027 12/18/2022, 08/0 03/2021, 01/15/2020, Additional history exists LUNG CANCER SCREENING - USE SMARTSET 68520 Completed 02/18/2020, 10/31/2018 ABDOMINAL AORTIC ANEURYSM (AAA) [...] filedocumented as of this encounter Care Teams Industrial Specialist Relationship Specialty Start Date End Date Lior Merritt DO [address] [place] [address] PCP - General Family Medicine 10/03/20 documented as of this encounter
--- OUTSIDE RECORDS SUMMARY | 2023-06-16 09:09 | External Medical Summary ---
Author Name Unknown Address Unknown Organization [id number]:[facility] [place] - [facility] [address] [facility] [address] Laboratory Report Ordering Provider Test Date Status GEO GONZALEZ 12/18/2022 09:36:16 Final Observation Date Value Abnormality Reference (Units ) Status HbA1C 12/18/2022 09:36:16 8.4 Above high normal 4. 0-5.6 (%) Final The use of HbA1c to monitor glycemic status is based on normal hemoglobin and HbA composition. This test should not be used in patients with abnormal hemoglobin that affects the half life of the red blood cell or the in vivo glycation rates. Glucose, estimated average 12/18/2022 09:36:16 194 Above high normal <126 (mg/dL) Carlos hutton Performing Location LABOR[facility]ORY [facility] [place] - [address] [facility] [address]
--- OUTSIDE RECORDS SUMMARY | 2023-06-16 09:09 | External Medical Summary ---
Author Name Unknown Address Unknown Organization [id number]:[facility]ORY [facility] [place] - [address] [place] [address] Laboratory Report Ordering Provider Test Date Status JESENIA BRADSHAW 12/18/2022 09:36:16 Final Observation Date Value Abnormality Reference (Units ) Status MYCODE SPECIMEN-LAV 12/18/2022 09:36:16 Freezing of extracted DNA, whole blood and/or serum. Final Performing Location [facility]ATORY [facility] [place] - [address] [place] [address]
[2023-06-16] MEDS ORDERED: HEPARIN SODIUM/DEXTROSE 25,000 UNITS/500 ML BAG IV SCH (10:30)
[2023-06-16] MEDS: Heparin IV Adult Wt-Based Low-Dose *NO* Bolus Protocol IV SCH ×2 (11:09→11:15)
[2023-06-16] MEDS: CHOLECALCIFEROL 5,000 UNITS 125 MCG TAB PO SCH (11:15)
[2023-06-16] MEDS: CYANOCOBALAMIN (B-12) 500 MCG TABLET PO SCH (11:15)
--- NOTE | 2023-06-16 13:54 | Cardiology Consultation ---
Date of Consultation June 16, 2023 Assessment & Plan (1) NSTEMI (non-ST elevated myocardial infarction): Plan This is a 68 year old man with a pmhx of DMII, HTN, CKD, tobacco use, AAA, who presented with complaints of cough x 1 week as well as new onset "chest heaviness." He tells me this has been ongoing for approximately 1 week. Also, he notes that earlier this week he had a bout of nausea and vomiting, that he attributes to eating spoiled [place] food. He has chronic dyspnea on exertion after walking up 1 flight of stairs. He has chronic leg weakness which he attributes to Lyme disease. He currently vapes and previously smoked cigarettes. His mother had a CABG x 4 in her 50s and in her 70s. Currently asymptomatic. No chest pain. No N/V/TEMPLE; afebrile. No PND or orthopnea. 1. NSTEMI -mild troponin elevation in the setting of chest heaviness -EKG without ischemic changes -TTE shows lateral wall motion abnormality and mildly decreased LVEF -start heparin gtt -continue aspirin -NPO s/p midnight for Coronary Angiogram tomorrow I provided 85 min of care to the patient, which included bedside discussion in regards to NSTEMI. History of Present Illness Reason for Consultation: Chest heaviness Attending Physician: Sunni Medina MD History of Present Illness This is a 68 year old man with a pmhx of DMII, HTN, CKD, tobacco use, AAA, who presented with complaints of cough x 1 week as well as new onset "chest heaviness." He tells me this has been ongoing for approximately 1 week. Also, he notes that earlier this week he had a bout of nausea and vomiting, that he attributes to eating spoiled [place] food. He has chronic dyspnea on exertion after walking up 1 flight of stairs. He has chronic leg weakness which he attributes to Lyme disease. He currently vapes and previously smoked cigarettes. His mother had a CABG x 4 in her 50s and in her 70s. Currently asymptomatic. No chest pain. No N/V/TEMPLE; afebrile. No PND or orthopnea. Allergies Allergy/AdvReac Type Severity Reaction Status Date / Time amoxicillin [From Augmentin] Allergy Unknown pruritic Verified 06/15/23 16:34 rash clavulanic acid Allergy Unknown pruritic Verified 06/15/23 16:34 [From Augmentin] rash Home Medications Medication Instructions Recorded Confirmed Type amlodipine 5 mg tablet (Norvasc) 5 mg PO QAM 07/14/18 06/15/23 History aspirin 81 mg tablet,delayed 81 mg PO QAM 01/03/22 06/15/23 History release insulin human U-100 NPH-regulr 18 unit subcut BIDWMEAL 01/03/22 06/15/23 History 70-30 mix 100 unit/mL subcutaneous susp (Novolin 70/30 U-100 Insulin) lisinopril 2.5 mg tablet 2.5 mg PO QAM 01/03/22 06/15/23 History metformin 1,000 mg tablet 1,000 mg PO BIDM 01/03/22 06/15/23 History ferrous sulfate 325 mg (65 mg 325 mg PO QAM 06/15/23 06/15/23 History iron) tablet pioglitazone 15 mg tablet 15 mg PO QAM 06/15/23 06/15/23 History rosuvastatin 10 mg tablet 10 mg PO QAM 06/15/23 06/15/23 History Patient History Medical History History of Lyme disease Acute calculous cholecystitis Acute gallstone pancreatitis Back pain DDD (degenerative disc disease), lumbar Sciatica of right side Spinal stenosis ASCVD (arteriosclerotic cardiovascular disease) CKD (chronic kidney disease) stage 3, GFR 30-59 ml/min Hypertension Hyperlipidemia Diabetes Surgical History Hx laparoscopic cholecystectomy History of hernia surgery Family History Mother Heart disease Social History Smoking Status: Former smoker Tobacco Type: E-cigarettes / Vaping Cigarettes Per Day: vapes; Second Hand Exposure: No; Do You Dip or Chew Tobacco: No; Tobacco Cessation Education Requested by Patient: No Hx Alcohol Use: No Hx Substance Use: No Preferred Language: [place] Communication Ability: Effective Visual Impairment: No Limitations Paper Conservator Required: No Beliefs That Will Affect Care: None marital status: Current Living Situation: Spouse How many Children do You have: 1 Other Information That Helps Us Care for You: No Feels Safe at Home: Yes Safety Concerns: Feels Safe At This Time Assistive Devices: None Review of Systems Review of Systems: A comprehensive review of systems is otherwise negative unless noted above. Physical Exam Physical Exam: GEN: AAOx3; NAD HEENT: no JVD CV: RRR; S1+S2; no M/R/G PULM: CTA b/l; no W/R/R ABD: soft; NTND EXT: no lower extremity edema Results & Data Vital Signs (Past 12 Hours) Vital Signs Temp Pulse Pulse Resp BP Pulse Ox O2 Del Method 06/16/23 11:38 36.7 C 73 18 152/99 H 96 Room Air 06/16/23 08:00 75 06/16/23 07:45 36.7 C 82 19 165/108 H 96 Room Air 06/16/23 03:44 151/93 H 06/16/23 03:00 36.4 C L 72 18 168/100 H 98 Room Air Results BMP Results: Sodium 138 mmol/L (136-145) 06/15/23 Potassium 4.0 mmol/L (3.5-5.1) 06/15/23 Chloride 101 mmol/L (98-107) 06/15/23 Carbon Dioxide 29 mmol/L (21-32) 06/15/23 Anion Gap 8 (3-11) 06/15/23 BUN 23 mg/dl (6-23) 06/15/23 Creatinine 1.36 mg/dl (0.6-1.4) 06/15/23 Glucose 93 mg/dl (70-99(Fasting)) 06/15/23 Results Complete Blood Count Results: RBC 4.87 M/uL (4.70-6.10) 06/15/23 WBC 6.59 K/ul (4.8-10.8) 06/15/23 Hgb 14.4 g/dl (14.0-18.0) 06/15/23 Hct 43.5 % (42.0-52.0) 06/15/23 Plt Count 209 K/uL (130-400) 06/15/23
--- NOTE | 2023-06-16 14:40 | Hospitalist Progress Note ---
Date of Service June 16, 2023 Assessment & Plan (1) NSTEMI (non-ST elevated myocardial infarction): Plan 68 y/o male with insulin-requiring DM2, AAA, HTN, dyslipidemia, CKD3, tobacco use disorder presented to the ED 06/15 with chest discomfort and heaviness. He has a strong family history of CAD with his mother requiring CABG x 4 in her early 60s although pt denies prior history of cardiac disease. He has multiple risk factors including poorly controlled DM, HTN, dyslipidemia and tobacco use (former smoker, current vaper). In the ED, EKG personally reviewed and without ischemic changes. Initial troponin elevated at 56.0, repeat 2 hrs later was 50.8. Due to multiple risk factors for cardiac disease and elevated troponin, pt was admitted for ACS ro. He is being managed for the following: NSTEMI Patient presenting with chest heaviness, mild troponin elevation, EKG without ischemic changes TTE with lateral wall motion abnormality and mildly reduced EF. LDL 36. Cardiology on board, heparin GTT started. Continue with home medications including aspirin. N.p.o. midnight, plan for coronary angiogram tomorrow. T2DM: Insulin requiring, A1c elevated. Hold oral meds, continue sliding scale. Will need up titration of his oral meds on DC. Vitamin D deficiency: Vitamin D level of 14.2 this admission. Patient made aware. Vitamin D supplementation is started. Vitamin B12 deficiency: Vitamin B12 of 121 this admission, cyanocobalamin is started. Repeat levels in 1 month/follow-up with PCP if to evaluate for need for injection replacement. Other chronic medical condition: Continue with/resume home meds as and when able. Hypertension: Hyperlipidemia: Hypercalcemia: Plan: SPEP, PTH, Vit D in AM -follow Random protein creatinine ratio, random urine protein Code Status: Full Code DVT Prophylaxis: On heparin drip Admission and Anticipated Discharge Date Admission Date: June 15, 2023 Subjective Patient was seen and examined at bedside. Patient was lying in bed, on room air, NAD, reports no chest pain. Patient's at bedside. Patient denies any headache or dizziness or palpitation or belly pain or other review of symptoms. Physical Exam Physical Exam: GENERAL: Alert and oriented x3. NAD, on RA. HEENT: No pallor, no icterus. Pupils equal, round and reactive to light. Oral mucosa moist. NECK: No JVD, no neck masses. HEART: S1 and S2 heard. Regular rate and rhythm. No murmur, no gallop. RESPIRATORY SYSTEM: Normal AP diameter. No accessory muscle use. No wheezing, no crackles. ABDOMEN: Soft, bowel sounds present, nontender, no distention. CENTRAL NERVOUS SYSTEM: No facial droop. Speech is clear. Obeys simple commands. Moves extremities. EXTREMITIES: No edema, no erythema seen. Results & Data Results & Data Vital Signs (Past 12 Hours) Vital Signs Temp Pulse Pulse Resp BP Pulse Ox O2 Del Method 06/16/23 11:38 36.7 C 73 18 152/99 H 96 Room Air 06/16/23 08:00 75 06/16/23 07:45 36.7 C 82 19 165/108 H 96 Room Air 06/16/23 03:44 151/93 H 06/16/23 03:00 36.4 C L 72 18 168/100 H 98 Room Air
[2023-06-16 19:13] LABS: Partial Thromboplastin Ratio 1.7
[2023-06-16 19:45] LABS: Partial Thromboplastin Time 49.3 Seconds (21.0-31.0)
[2023-06-17 04:54] LABS: Hematocrit (blood only) 40.4 % (42.0-52.0); Hemoglobin 13.7 g/dl (14.0-18.0); Mean Corpuscular Hemoglobin 30.1 pg (25.0-34.0); Mean Corpuscular Hgb Conc 33.9 g/dL (32.0-36.0); Mean Corpuscular Volume 88.8 fL (80.0-100.0); Mean Platelet Volume 10.1 fL (9.4-12.4); Platelet Count 191 K/uL (130-400); RDW Coefficient of Variation 13.1 % (11.5-14.5); RDW Standard Deviation 42.7 fL (36.4-46.3); Red Blood Count 4.55 M/uL (4.70-6.10); White Blood Count 8.71 K/ul (4.8-10.8)
[2023-06-17 05:06] LABS: BUN Creatinine Ratio 17.2 (10-20); Calcium 9.6 mg/dl (8.6-10.3); Est GFR (African American) 46.7 ml/min; Est GFR (Non-African American) 40.3 ml/min; Potassium 4.1 mmol/L (3.5-5.1)
[2023-06-17 05:41] LABS: Partial Thromboplastin Ratio 1.6
[2023-06-17 06:05] LABS: Partial Thromboplastin Time 46.4 Seconds (21.0-31.0)
[2023-06-17] MEDS: ROSUVASTATIN CALCIUM 10 MG TAB PO SCH (08:29)
[2023-06-17] MEDS: CHOLECALCIFEROL 5,000 UNITS 125 MCG TAB PO SCH (08:29)
[2023-06-17] MEDS: lisinopril 2.5 MG TAB PO SCH (08:29)
[2023-06-17] MEDS: CYANOCOBALAMIN (B-12) 500 MCG TABLET PO SCH (08:29)
[2023-06-17] MEDS: amLODIPine BESYLATE 5 MG TAB PO SCH (08:29)
[2023-06-17] MEDS: ASPIRIN 81 MG ECTAB PO SCH (08:30)
[2023-06-17] MEDS: FLUTICASONE PROPIONATE NA SPR 16 GM BTL SCH (08:30)
[2023-06-17] MEDS: INSULIN ASPART PER UNIT CHARGE SC SCH ×4 (08:31→19:50)
[2023-06-17] MEDS ORDERED: SODIUM CHLORIDE 0.9% 1,000 ML IV SCH ×2 (10:00→15:15)
--- NOTE | 2023-06-17 10:25 | Cardiology Progress Note ---
Date of Service June 17, 2023 Assessment & Plan (1) NSTEMI (non-ST elevated myocardial infarction): Plan This is a 68 year old man with a pmhx of DMII, HTN, CKD, tobacco use, AAA, who presented with complaints of cough x 1 week as well as new onset "chest heaviness." He has chronic dyspnea on exertion after walking up 1 flight of stairs. He has chronic leg weakness which he attributes to Lyme disease. He currently vapes and previously smoked cigarettes. His mother had a CABG x 4 in her 50s and in her 70s. 1. NSTEMI -mild troponin elevation in the setting of chest heaviness high-sensitivity troponin measurements of 56, 50, 47, and 52 with most recent measurement 06/16/2023 at 4:33 AM. -EKG without ischemic changes -TTE shows lateral wall motion abnormality and mildly decreased LVEF -Heparin on hold with plans for cardiac catheterization today. -Continue aspirin, lisinopril, amlodipine, rosuvastatin. Add low-dose metoprolol succinate. Questions answered to patient and family's satisfaction. Admission and Anticipated Discharge Date Admission Date: June 15, 2023 Subjective Patient seen in cardiology follow-up. His spouse, Geraldine, is at the bedside as is his brother and [id number]. At present, patient's only complaint is mild cough/cold symptoms. Heparin has been held as of 4 AM. Telemetry reveals sinus rhythm in the 70s. Review of Systems Review of Systems: All systems reviewed & are unremarkable except as noted in HPI & below Physical Exam Constitutional: WD/WN, vitals as above Respiratory: normal respiratory effort, lungs clear to auscultation Cardiovascular: RRR, no murmur, no edema Gastrointestinal (Abdomen): normal bowel sounds, soft, nontender, no hepatosplenomegaly Neurologic: PERRL, EOMI, accommodation nl, no face palsy, no dysarthria Results & Data Vital Signs (Past 12 Hours) Vital Signs Temp Pulse Pulse Resp BP Pulse Ox O2 Del Method 06/17/23 08:00 84 06/17/23 08:00 Room Air 06/17/23 07:23 36.7 C 84 19 152/82 H 94 Room Air 06/17/23 03:28 36.7 C 83 18 159/99 H 95 Room Air 06/16/23 23:00 93 H 06/16/23 22:54 36.8 C 94 H 18 150/96 H 94 Room Air 06/16/23 22:29 Room Air Laboratory Results Coagulation 06/16/23 06/17/23 Range/Units 18:07 04:27 APTT 49.3 H* 46.4 H* (21.0-31.0) Seconds CBC 06/17/23 Range/Units 04:27 WBC 8.71 (4.8-10.8) K/ul RBC 4.55 L (4.70-6.10) M/uL Hgb 13.7 L (14.0-18.0) g/dl Hct 40.4 L (42.0-52.0) % Plt Count 191 (130-400) K/uL Comprehensive Metabolic Panel 06/17/23 Range/Units 04:27 Sodium 134 L (136-145) mmol/L Potassium 4.1 (3.5-5.1) mmol/L Chloride 101 (98-107) mmol/L Carbon Dioxide 25 (21-32) mmol/L BUN 29 H (6-23) mg/dl Creatinine 1.69 H D (0.6-1.4) mg/dl Glucose 196 H (70-99(Fasting)) mg/dl Calcium 9.6 (8.6-10.3) mg/dl Intake and Output 06/16/23 06/17/23 06/17/23 22:59 06:59 14:59 Intake Total 273 / 1548 175 / 1548 Balance 273 / 1547 175 / 1547 Intake: IV 153 / 328 175 / 328 Heparin Sodium/Dextrose 25,000 153 / 328 175 / 328 units In 500 ml @ 1,000 UNITS/ HR 20 mls/hr IV .Q24H [facility] Rx#: [id number] Oral 120 / 1220 Other: Other Intake Source sips NPO # Unmeasured Voids 1 1 Weight 82.3 kg Weight Measurement Method Built in [facility] Diagnostic Findings Summary of transthoracic echocardiogram performed 06/16/2023: Mild left ventricular systolic dysfunction is present, LVEF in the range of 40 to 45% There is a moderate-sized apical, posterior, and lateral wall motion abnormality with hypokinesis of the segments. Grade 1 diastolic dysfunction is present. There is no significant valvular heart disease. Compared to previous echocardiogram performed in 2018, left ventricular wall motion abnormalities are new. EKG performed 06/16/2023 revealed sinus rhythm with nonspecific T wave flattening in the lateral leads.
[2023-06-17] MEDS: METOPROLOL SUCC 25MG EXT REL TAB PO ONE ×2 (10:58→11:36)
--- NOTE | 2023-06-17 13:59 | Pre Anesthesia Assessment ---
Date of Service June 17, 2023 Pre Sedation Assessment Vital Signs Temp Pulse Pulse Resp BP BP Pulse Ox 06/17/23 13:48 103 H 18 172/121 H 96 06/17/23 11:50 98.2 F 72 19 128/89 95 06/17/23 11:01 86 148/90 H 06/17/23 08:00 84 06/17/23 08:00 06/17/23 07:23 98.1 F 84 19 152/82 H 94 06/17/23 03:28 98.1 F 83 18 159/99 H 95 06/16/23 23:00 93 H 06/16/23 22:54 98.2 F 94 H 18 150/96 H 94 06/16/23 22:29 06/16/23 19:56 98.4 F 97 H 18 152/101 H 95 06/16/23 16:03 98.2 F 79 18 138/97 96 06/16/23 15:59 82 O2 Del Method 06/17/23 13:48 Room Air 06/17/23 11:50 Room Air 06/17/23 11:01 Room Air 06/17/23 08:00 06/17/23 08:00 Room Air 06/17/23 07:23 Room Air 06/17/23 03:28 Room Air 06/16/23 23:00 06/16/23 22:54 Room Air 06/16/23 22:29 Room Air 06/16/23 19:56 Room Air 06/16/23 16:03 Room Air 06/16/23 15:59 Cardiovascular + regular rate Respiratory normal respiratory effort, lungs clear to auscultation Pre-Sedation Airway Assessment Smoking Status: Former smoker Hx Sleep Apnea: No Hx Difficult Intubation: No Short, Thick Neck: No Thyromental Distance: > or= 3.5 Finger Breadths Oral Cavity: + WNL Mallampati Class: II ASA: ASA2 NPO Status Date of Last Intake of Fluids: 06/16/23 Time of Last Intake of Fluids: 20:00 Date of Last Intake of Solid Food: 06/16/23 Time of Last Intake of Solid Foods: 20:00 Procedure Planning Contraindications for Sedation: none Current Medications Reviewed: Yes Notes The planned sedation has been discussed with the patient. Informed Consent was obtained. I have identified the patient, determined the appropriateness of sedation and have assessed the patient immediately prior to the procedure. All medicine(s) and interventions are by my order.
[2023-06-17] MEDS ORDERED: HEPARIN (PORCINE) 1000 UNIT/ML 10 ML (CATH LAB USE ONLY) ONE (14:03)
[2023-06-17] MEDS ORDERED: MIDAZOLAM HCL 1 MG/ML 2ML VIAL ONE (14:04)
[2023-06-17] MEDS ORDERED: fentaNYL citrate PF 100 MCG/2 ML VIAL ONE (14:04)
[2023-06-17] MEDS ORDERED: niCARdipine HCL INJ 2.5 MG/ML 10 ML AMP ONE (14:04)
[2023-06-17] MEDS ORDERED: NITROGLYCERIN/D5W 100MCG/ML 20ML SYR ONE (14:04)
[2023-06-17] MEDS ORDERED: IODIXANOL (VISIPAQUE) 320 MG/ML 100ML IV ONE (14:04)
--- NOTE | 2023-06-17 14:24 | Hospitalist Progress Note ---
Date of Service June 17, 2023 Assessment & Plan (1) NSTEMI (non-ST elevated myocardial infarction): Plan 68 y/o male with insulin-requiring DM2, AAA, HTN, dyslipidemia, CKD3, tobacco use disorder presented to the ED 06/15 with chest discomfort and heaviness. He has a strong family history of CAD with his mother requiring CABG x 4 in her early 60s although pt denies prior history of cardiac disease. He has multiple risk factors including poorly controlled DM, HTN, dyslipidemia and tobacco use (former smoker, current vaper). In the ED, EKG personally reviewed and without ischemic changes. Initial troponin elevated at 56.0, repeat 2 hrs later was 50.8. Due to multiple risk factors for cardiac disease and elevated troponin, pt was admitted for ACS ro. He is being managed for the following: NSTEMI Patient presenting with chest heaviness, mild troponin elevation, EKG without ischemic changes TTE with lateral wall motion abnormality and mildly reduced EF. LDL 36. Cardiology on board, heparin GTT on hold for heart cath today. Continue with home medications including aspirin. For heart cath today, complains no chest pain Acute Kidney injury over CKD III: Baseline Cr about 1.3; cr up to 1.69 today, initiate IVF, labs in AM. lisinopril on hold. T2DM: Insulin requiring, A1c elevated. Hold oral meds, continue sliding scale. Will need up titration of his oral meds on DC. Vitamin D deficiency: Vitamin D level of 14.2 this admission. Patient made aware. Vitamin D supplementation is started. Vitamin B12 deficiency: Vitamin B12 of 121 this admission, cyanocobalamin is started. Repeat levels in 1 month/follow-up with PCP if to evaluate for need for injection replacement. Other chronic medical condition: Continue with/resume home meds as and when able. Hypertension: Hyperlipidemia: Hypercalcemia: Plan: SPEP, PTH, Vit D in AM -follow Random protein creatinine ratio, random urine protein f/u Ca nl. Code Status: Full Code DVT Prophylaxis: hep drip on hold for cath today. Admission and Anticipated Discharge Date Admission Date: June 17, 2023 Subjective Patient was seen and examined at bedside. Patient was lying in bed, on room air, NAD, reports no chest pain. Patient's at bedside. Patient denies any headache or dizziness or palpitation or belly pain or other review of symptoms. Plan for heart cath today. Physical Exam Physical Exam: GENERAL: Alert and oriented x3. NAD, on RA. HEENT: No pallor, no icterus. Pupils equal, round and reactive to light. Oral mucosa moist. NECK: No JVD, no neck masses. HEART: S1 and S2 heard. Regular rate and rhythm. No murmur, no gallop. RESPIRATORY SYSTEM: Normal AP diameter. No accessory muscle use. No wheezing, no crackles. ABDOMEN: Soft, bowel sounds present, nontender, no distention. CENTRAL NERVOUS SYSTEM: No facial droop. Speech is clear. Obeys simple commands. Moves extremities. EXTREMITIES: No edema, no erythema seen. Results & Data Results & Data Vital Signs (Past 12 Hours) Vital Signs Temp Pulse Pulse Resp BP BP Pulse Ox 06/17/23 13:48 103 H 18 172/121 H 96 06/17/23 11:50 36.8 C 72 19 128/89 95 06/17/23 11:01 86 148/90 H 06/17/23 08:00 84 06/17/23 08:00 06/17/23 07:23 36.7 C 84 19 152/82 H 94 06/17/23 03:28 36.7 C 83 18 159/99 H 95 O2 Del Method 06/17/23 13:48 Room Air 06/17/23 11:50 Room Air 06/17/23 11:01 Room Air 06/17/23 08:00 06/17/23 08:00 Room Air 06/17/23 07:23 Room Air 06/17/23 03:28 Room Air
--- NOTE | 2023-06-17 15:09 | Post Anesthesia Assessment ---
Date of Service June 17, 2023 Post Sedation Assessment Vital Signs Temp Pulse Pulse Resp BP BP Pulse Ox 06/17/23 13:48 103 H 18 172/121 H 96 06/17/23 11:50 98.2 F 72 19 128/89 95 06/17/23 11:01 86 148/90 H 06/17/23 08:00 84 06/17/23 08:00 06/17/23 07:23 98.1 F 84 19 152/82 H 94 06/17/23 03:28 98.1 F 83 18 159/99 H 95 06/16/23 23:00 93 H 06/16/23 22:54 98.2 F 94 H 18 150/96 H 94 06/16/23 22:29 06/16/23 19:56 98.4 F 97 H 18 152/101 H 95 06/16/23 16:03 98.2 F 79 18 138/97 96 06/16/23 15:59 82 O2 Del Method 06/17/23 13:48 Room Air 06/17/23 11:50 Room Air 06/17/23 11:01 Room Air 06/17/23 08:00 06/17/23 08:00 Room Air 06/17/23 07:23 Room Air 06/17/23 03:28 Room Air 06/16/23 23:00 06/16/23 22:54 Room Air 06/16/23 22:29 Room Air 06/16/23 19:56 Room Air 06/16/23 16:03 Room Air 06/16/23 15:59 Recovery Score Activity: Moves 4 extremities Respiration: Deep Breath/Cough Circulation: +/-20% PreAnes Value Consciousness: Fully Awake Oxygen Saturation: O2 needed for >90% Discharge Sedation Level of Care: Fast Track Phase II Post Sedation Plan On clinical assessment, the patient appears to have tolerated the sedation without complications. Patient is recovering as anticipated. Patient will continue to be monitored by nursing and may be discharged when sedation discharge criteria are met per below protocol. Upon Completions of procedure up to 15 minutes continue every 5 minute vital signs and the P.A.R. score; then discharge to a Phase I or Fast Track to Phase II per the following guidelines: * Discharge Patient to appropriate Phase II area if PAR is 8 or greater or return to pre- procedure baseline. The post - procedure orders will be as directed. * If PAR score is less than 8 or not return to pre-procedure baseline then patient will follow Phase I monitoring till PAR is reached for Phase II. The Phase I may be done in procedure room or may call to secure a Phase I area. * If naloxone or flumazenil are used for reversal, hold in Phase I for continued monitoring from when last reversal dose was given for a minimum of 60 minutes or longer pending the nurse and/or physician discretion of patient condition before discharge to Phase II. Please call the Sedation Physician to re-evaluate and complete post-note for discharge to Phase II area. Do NOT discharge from procedure sedation or Phase 1 until post- sedation evaluation note is complete by procedure /sedation MD Sedation Discharge Instructions to be given to the patient at discharge to home.
--- NOTE | 2023-06-17 15:16 | Communication Note ---
Date of Service: June 17, 2023 Cardiac catheterization films reviewed personally and discussed with Dr. Enriquez of interventional cardiology. Patient has been found to have three-vessel coronary artery disease including a complex high-grade mid LAD/diagonal stenosis, obtuse marginal 1 stenosis, and high-grade mid RCA stenosis. Given his history of type 2 diabetes mellitus and multivessel coronary heart disease, consultation with CT surgery as an inpatient recommended. Patient's initial thoughts were that he did not want to have bypass surgery, and I think we need ongoing discussion about this after his sedation wears off and I plan to regroup with him post procedure in his room with his spouse in attendance. Case discussed with Dr Medina of [facility] medicine for purpose of coordination of care.
[2023-06-17] MEDS ORDERED: Heparin IV Adult Wt-Based Standard *NO* Bolus Protocol IV SCH (17:10)
--- NOTE | 2023-06-17 17:14 | Communication Note ---
Date of Service: June 17, 2023 Spoke with patient and spouse in his room. He is comfortable post cardiac catheterization. No chest pain. He is surprised by the news that he has multivessel coronary heart disease. I discussed options with him. Given his history of diabetes and multivessel coronary heart disease, CABG, likely preferred approach. He is agreeable to transfer to [facility] [place] for CT surgery consultation as inpatient and consideration of CABG or if there is any option for complex PCI. Rj Hargrove, DO
[2023-06-17] MEDS ORDERED: HEPARIN SODIUM/DEXTROSE 25,000 UNITS/500 ML BAG IV SCH (17:30)
--- NOTE | 2023-06-17 17:35 | Discharge Summary ---
Date of Service June 17, 2023 Admission HPI Per Admitting Provider This is a 68 y/o male with insulin-requiring DM2, AAA, HTN, dyslipidemia, CKD3, tobacco use disorder, and other history as listed below who presented to the ED today with chest discomfort and heaviness. He reports that he started three days ago with scratchy throat, malaise, achiness then developed a cough. Cough is intermittently productive of yellow sputum but no hemoptysis. Today, noted chest discomfort and heaviness described as "it just doesn't feel right" but denies overt chest pain. He was concerned about possible pneumonia so came to the ED for evaluation. Work-up in the ED revealed an elevated troponin. Pt currently feels okay right now other than the cough. Chest discomfort is worse with coughing. No palpitations, lightheadedness or syncope. Denies fevers, chills, sweats, diarrhea, dizziness. He had a headache yesterday but better today. Nausea for the last few days but no vomiting. Notes increased frequency of indigestion "recently" that is often associated with eating specific foods. He denies sick contacts. Denies significant cardiac history. He vapes, previously smoked cigarettes. Family history of heart disease - mother had CABG x 4 in her early 60s. Admission Exam Per Admitting Provider General: awake, alert, NAD Eyes: no scleral icterus Mouth: moist mucus membranes Heart: RRR Lungs: CTA bilaterally without wheezes, rhonchi or rales Abd: soft, NTND, +BS Extremities: no pedal edema; distal pulses intact and equal Skin: no jaundice, no decreased turgor, cap refill <3 seconds Neuro: moving all extremities, no focal deficits, oriented x 3, no dysarthria Principal Diagnosis three vessel CAD Discharge Exam GENERAL: Alert and oriented x3. NAD, on RA. HEENT: No pallor, no icterus. Pupils equal, round and reactive to light. Oral mucosa moist. NECK: No JVD, no neck masses. HEART: S1 and S2 heard. Regular rate and rhythm. No murmur, no gallop. RESPIRATORY SYSTEM: Normal AP diameter. No accessory muscle use. No wheezing, no crackles. ABDOMEN: Soft, bowel sounds present, nontender, no distention. CENTRAL NERVOUS SYSTEM: No facial droop. Speech is clear. Obeys simple commands. Moves extremities. EXTREMITIES: No edema, no erythema seen. Discharge Data Allergies Allergy/AdvReac Type Severity Reaction Status Date / Time amoxicillin [From Augmentin] Allergy Unknown pruritic Verified 06/15/23 16:34 rash clavulanic acid Allergy Unknown pruritic Verified 06/15/23 16:34 [From Augmentin] rash Consultations 06/15/23 17:24 ED Decision to Admit Stat 06/15/23 20:57 Consult Cardiology Routine 06/17/23 17:25 Burn CD for patient Stat Procedures Performed Operation Date: 06/17/23 12:00 Actual Procedures p Cineradiography w/Routine Exam - Hector Enriquez MD Ordered Studies 06/17/23 14:08 CL Cath Imgs for PACS use only Routine Hospital Course (1) NSTEMI (non-ST elevated myocardial infarction): Plan 68 y/o male with insulin-requiring DM2, AAA, HTN, dyslipidemia, CKD3, tobacco use disorder presented to the ED 06/15 with chest discomfort and heaviness. He has a strong family history of CAD with his mother requiring CABG x 4 in her early 60s although pt denies prior history of cardiac disease. He has multiple risk factors including poorly controlled DM, HTN, dyslipidemia and tobacco use (former smoker, current vaper). In the ED, EKG personally reviewed and without ischemic changes. Initial troponin elevated at 56.0, repeat 2 hrs later was 50.8. Due to multiple risk factors for cardiac disease and elevated troponin, pt was admitted for ACS ro. He is being managed for the following: NSTEMI Patient presenting with chest heaviness, mild troponin elevation, EKG without ischemic changes TTE with lateral wall motion abnormality and mildly reduced EF. LDL 36. Continue with home medications including aspirin. s/p heart cath today, three vessel CAD, needs CT thoracic Sx eval d/w cardio, being transferred to [facility] Resume hep drip per post cath protocol. Acute Kidney injury over CKD III: Baseline Cr about 1.3; cr up to 1.69 today, initiate IVF, labs in AM. T2DM: Insulin requiring, A1c elevated. Hold oral meds, continue sliding scale. Will need up titration of his oral meds on DC. Vitamin D deficiency: Vitamin D level of 14.2 this admission. Patient made aware. Vitamin D supplementation is started. Vitamin B12 deficiency: Vitamin B12 of 121 this admission, cyanocobalamin is started. Repeat levels in 1 month/follow-up with PCP if to evaluate for need for injection replacement. Other chronic medical condition: Continue with/resume home meds as and when able. Hypertension: Hyperlipidemia: Hypercalcemia: Plan: SPEP, PTH, Vit D in AM -follow Random protein creatinine ratio, random urine protein f/u Ca nl. Code Status: Full Code DVT Prophylaxis: hep drip Pt being dc'd to [facility] for workup for three vessel CAD. Home Health Attestation I certify that this patient is under my care and that I, or a physicians assistant to the president working with me, had a face to-face encounter that meets the home health [id number] encounter requirements with this patient. The encounter with the patient was in whole, or in part, for the following medical condition, which is the primary reason for home health care (list medical condition): I certify that, based on my findings, the following services are medically n ecessary home health services: My clinical findings support the need for the above services because: Further, I certify that my clinical findings support that this patient is homebound (i.e. absences from home require considerable and taxing effort and are for medical reasons or uatsdin services or infrequently or of short duration when for other reasons) because: Certification for Home Health Services: Based on the above findings, I certify that this patient is confined to the home and needs intermittent retirement care, physical therapy and/or speech therapy or continues to need occupational therapy. The patient is under my care, and I have initiated the establishment of the plan of care. This patient will be followed by a physician who will periodically review the plan of care. Discharge Plan Discharge Items Patient Disposition: Transfer Acute Care Hospital Reason For Visit: +TROPONIN, CHEST DISCOMFORT Discharge Diagnosis: three-vessel CAD Activity: As commented below Activity Comment: as per tertiary [facility] recs. Non-emergency contact: Primary Care Provider Call non-emergency contact if: you have any medication questions Follow-up/Referrals: Hardik Oscar MD [Primary Care Provider] - Diet: Carb Consistent or DM2 and Heart Healthy Addtl Attending Provider Instructions: You are being discharged to [facility] for CT surgery eval for three vessel disease found during cardiac cath here in hospital. Home meds are continued as it is in the med rec, current inpatient meds are copied/pasted here to help w/ comparison. Current Inpatient Medications Acetaminophen (Acetaminophen 325 Mg Tab) 650 mg PO Q4H PRN PRN Reason: Pain or Fever Stop: 07/15/23 20:56 Amlodipine Besylate (Amlodipine Besylate 5 Mg Tab) 5 mg PO QAM [facility] Stop: 07/16/23 08:59 Last Admin: 06/17/23 08:29 Dose: 5 mg Aspirin (Aspirin 81 Mg Ectab) 81 mg PO QAM [facility] Stop: 07/16/23 08:59 Last Admin: 06/17/23 08:30 Dose: 81 mg Cyanocobalamin (Cyanocobalamin (B-12) 500 Mcg Tablet) 500 mcg PO QAM [facility] Stop: 07/16/23 10:14 Last Admin: 06/17/23 08:29 Dose: 500 mcg Dextrose (Dextrose 50% 50 Ml Syringe) 25 - 50 ml IV UD PRN; Protocol PRN Reason: Hypoglycemia Protocol Stop: 07/15/23 19:28 Fluticasone Propionate (Fluticasone Propionate Na Spr 16 Gm Btl) 2 sprays NA DAILY [facility] Stop: 07/16/23 08:59 Last Admin: 06/17/23 08:30 Dose: Not Given Glucagon (Glucagon For Inj 1 Mg Vial) 1 mg SQ UD PRN; Protocol PRN Reason: Hypoglycemia Protocol Stop: 07/15/23 19:28 Glucose (Glucose 10 Tab/Tube) 4 - 8 tab PO UD PRN; Protocol PRN Reason: Hypoglycemia Treatment Stop: 07/15/23 19:28 Glucose (Glucose 40% Gel 15 Gm Tube) 15 - 30 gm PO UD PRN; Protocol PRN Reason: Hypoglycemia Protocol Stop: 07/15/23 19:28 Guaifenesin/Codeine Phosphate (Guaifenesin/Codeine 100mg/10mg 5ml Udc) 5 ml PO Q6H PRN PRN Reason: Cough Stop: 07/15/23 20:56 Heparin Sodium/Dextrose (Heparin Iv Adult Wt-Based Standard *No* Bolus Protocol) 1 each IV Q15M [facility]; Protocol Stop: 07/17/23 17:09 Sodium Chloride (Nss) 1,000 mls @ 100 mls/hr IV .Q10H [facility] Stop: 06/17/23 20:14 Last Admin: 06/17/23 15:50 Dose: 100 mls/hr Heparin Sodium/Dextrose (Heparin Sodium/Dextrose) 25,000 units in 500 mls @ 0.02 mls/hr IV .Q24H [facility]; Protocol Stop: 07/17/23 17:29 Insulin Aspart (Insulin Aspart Per Unit Charge) 0 units SC ACHS [facility] Stop: 07/15/23 20:59 Last Admin: 06/17/23 17:25 Dose: 6 units Lisinopril ([facility] 5 Mg Tab) [facility] Stop: 07/18/23 08:59 Metoprolol Succinate (Metoprolol Succ 25mg Ext Rel Tab) 12.[facility] Stop: 07/18/23 08:59 Miscellaneous (Carbohydrates For Hypoglycemia ) 15 - 30 gm PO UD PRN PRN Reason: Hypoglycemia Protocol Stop: 07/15/23 19:28 Nitroglycerin (Nitroglycerin Sl 0.4 Mg/Tab Tab) 0.4 mg SL Q5M PRN PRN Reason: Chest Pain Stop: 07/15/23 20:56 Rosuvastatin Calcium (Rosuvastatin Calcium 20 Mg Tab) [facility] Stop: 07/18/23 08:59 Vitamin D (Cholecalciferol 5,000 Units 125 Mcg Tab) 5,000 [facility] Stop: 07/16/23 10:14 Last Admin: 06/17/23 08:29 Dose: 5,000 units Pending Studies at Discharge: No Stand-Alone Forms: My [facility] Skilled Items Patient informed of condition?: Yes DNR: No Discharge Level of Care: Other Communicable Disease: No Discharge Prognosis: Other Lines: Peripheral IV Urinary Catheter: No Medications and DC Order Prescriptions: Continued amlodipine [Norvasc] 5 mg Tablet 5 mg PO QAM metformin 1,000 mg tablet 1,000 mg PO BIDM aspirin 81 mg Tablet,Delayed Release (Dr/Ec) 81 mg PO QAM lisinopril 2.5 mg tablet 2.5 mg PO QAM Novolin 70/30 U-100 Insulin 100 unit/mL (70-30) Suspension 18 unit subcut BIDWMEAL pioglitazone 15 mg tablet 15 mg PO QAM rosuvastatin 10 mg tablet 10 mg PO QAM ferrous sulfate 325 mg (65 mg iron) Tablet 325 mg PO QAM Krames/Other Patient Handouts: Managing Type 2 Diabetes Admission Data Admit Date/Time: 06/17/23 11:38 Attending Provider: Sunni Medina Admit Provider: Cece Randhawa Primary Care Provider: Hardik Oscar Other Providers: Cece Randhawa; Rikki Honeycutt
--- NOTE | 2023-06-17 18:56 | Cardiac Catheterization ---
[facility] Data: [employer] Cardiac Status Clinical evaluation leading to the procedure CAD Presenation: Non STEMI Diagnostic Physicians Name: Hector Enriquez MD Closure Device Recommendations: CABG Cardiac Cath Procedure Full Procedure Date June 17, 2023 Pre-Procedure Diagnosis Pre-Procedure Diagnosis: Non STEMI and Cardiomyopathy AUC Score AUC Score: 7 Post-Procedure Diagnosis Post-Procedure Diagnosis: Severe CAD and Normal Intracardiac Pressures Procedure(s) Performed Procedure(s) Performed: Coronary Angiography and Left Heart Cath Telepathist Hector Enriquez MD Frame Feeder(s) Jet Estimated Blood Loss Estimated Blood Loss: 15 Medication(s) Medication(s): Fentanyl, Heparin, Lidocaine 1%, Nicardipine, Nitroglycerin and Versed Summary of Findings Indication: NSTEMI, new LV dysfunction with lateral wall motion abnormality Access: 6 Fr right radial artery Catheters: [place] Findings: LM -normal caliber, no significant disease LAD -medium caliber, calcified 70-80% diffuse mid segment disease with ectatic portion just after takeoff of D2. 30-40% earlydistal stenosis remainder of distal segment without significant disease. Apical LAD with 40% stenosis as wraps around apex. Small to medium D2 with 95% ostial stenosis Circumflex -large caliber, codominant, 40% distal stenosis at takeoff of left PLB. High medium OM1 with diffuse mid segment disease up to 90%. Small medium OM2 with diffuse 40% disease. Inferior branch of OM 2 occluded and fills via left to left collaterals. RCA -medium caliber, codominant, 30% earlymid stenosis, 80 to 90% mid stenosis after takeoff of acute marginal. Distal segment with luminal irregularities. RPDA with mild diffuse disease. LVEDP -14 Arterial Closure: TR band Summary: 1. Severe multivessel coronary artery disease -75% diffuse mid LAD disease with ectatic segment after D2. D2 95% ostial 85% mid RCA High OM1 90% mid 2. Normal intracardiac filling pressure Recommendations: With diabetes, LV dysfunction and multivessel disease recommend cardiac surgery evaluation for CABG Hemodynamics Rest Ao:: 129/80/108 Final Ao: 153/97/120 LV: 149/14 Recommendations Recommendations: CABG Radiation Exposure (mGy) 745 Contrast (mls) 50 Anesthesia Moderate [id number] Procedural Complication(s) None Disposition PCU I attest to the content of the Intraoperative Record and any orders documented therein. Any exceptions are noted below. [facility] Card Cath Procedure Codes Cardiac Catheterization Procedure 1: Cardiovascular Cath Procedures: 99416 Coronaries and LHC (+/-LV) Moderate Sedation Procedure 1: Sedation/Anesthesia: 31896 Mod Sedation by the same physician;Init15 Min Child Age 5 & Up PG Care Time/CCT Total # of Minutes Spent Total Time Spent with Patient: Total time spent is greater than 50% in coordination of care (as documented) at patient's floor/unit and/or counseling patient:
[2023-06-18] MEDS ORDERED: METOPROLOL SUCC 25MG EXT REL TAB PO SCH (09:00)
[2023-06-18] MEDS ORDERED: lisinopril 5 MG TAB PO SCH (09:00)
[2023-06-18] MEDS ORDERED: ROSUVASTATIN CALCIUM 20 MG TAB PO SCH (09:00)
--- NOTE | 2023-06-18 21:53 | Electrocardiogram Report ---
Test Reason : Blood Pressure : / mmHG Vent. Rate : 091 BPM Atrial Rate : 091 BPM P-R Int : 162 ms QRS Dur : 092 ms QT Int : 336 ms P-R-T Axes : 076 028 048 degrees QTc Int : 413 ms Normal sinus rhythm Normal ECG When compared with ECG of 25-JUL-2018 05:51, Premature ventricular complexes are no longer Present Confirmed by Satish Almonte ([id number]) on 06/18/2023 9:52:50 PM Referred By: REFERRED SELF Confirmed By:Satish Almonte
--- NOTE | 2023-06-19 05:53 | Electrocardiogram Report ---
Test Reason : Blood Pressure : / mmHG Vent. Rate : 078 BPM Atrial Rate : 078 BPM P-R Int : 174 ms QRS Dur : 102 ms QT Int : 386 ms P-R-T Axes : 073 020 040 degrees QTc Int : 440 ms Normal sinus rhythm Nonspecific T wave abnormality Abnormal ECG When compared with ECG of 15-JUN-2023 14:52, No significant change was found Confirmed by Satish Almonte ([id number]) on 06/19/2023 5:53:02 AM Referred By: REFERRED SELF Confirmed By:Satish Almonte
[2023-06-19 07:53] LABS: Albumin 3.8 g/dL (3.8-4.8); Alpha 1 Globulin 0.3 g/dL (0.2-0.3); Alpha 2 Globulin 0.9 g/dL (0.5-0.9); Beta-1-Globulin 0.4 g/dL (0.4-0.6); Beta-2-Globulin 0.4 g/dL (0.2-0.5); Gamma Globulin 1.1 g/dL (0.8-1.7); Monoclonal Protein Band 1 DNR g/dL (NONE DETECTED); Monoclonal Protein Band 2 DNR g/dL (NONE DETECTED); Monoclonal Protein Band 3 DNR g/dL (NONE DETECTED); Total Protein 6.9 g/dL (6.1-8.1)
== END 2023-06-17 20:55 | disposition short-term general hospital (02) | DRG 281 ==
LOC: ED 13:46 → EDINP 13:46 → SUATTDRO 18:03 → EDINP 20:56 → 4W 21:55